=== PATIENT | female | born 1975 | race African-American/Black ===

== ENCOUNTER 2016-10-14 12:54 | Emergency (ER) | payer OTHER ==
[~2016-10-14 12:54] MED LIST: ALBU2.5V14 NEB; AMOX875T PO; BENZ100C PO; LIDO20SO PO; PRED50TA PO; PROAIR HFA8.5 GM INH
[2016-10-14 13:22] VITALS: BP 115/104
--- NOTE | 2016-10-14 14:11 | PHYS DOC ---
Past Medical History Past Medical History: Anxiety, Asthma, Depression, Other Additional Past Medical Histor: Chronic low back pain Past Surgical History: Tubal ligation, Other Additional Past Surgical Histo: D&C, wisdome teeth Alcohol Use: None Drug Use: None Adult General Chief Complaint Chief Complaint: LOWER BACK PAIN OR INJURY HPI HPI 41-year-old female presenting to the emergency department today with right- sided back pain that is acute on chronic. She reports recently lifting heavy objects. Her pain began this morning. It is severe radiates into her right leg and is without alleviating or exacerbating factors. Review of systems is negative for perineal paresthesias chest pain shortness of breath weakness numbness or tingling. All other review of systems is negative unless otherwise noted in history of present illness. ED course: 41-year-old female presenting to the emergency department today with signs and symptoms suggestive of sciatica. Vital signs unremarkable. Pertinent physical exam findings show mild pain on the right paraspinal musculature. Positive straight leg test on the right. Back exam shows no fluctuance erythema lacerations or ecchymosis or step-offs. Intramuscular hydromorphone used to control the patient's pain. On reexamination she is feeling much better and the patient was subsequent discharged home. The patient was then discharged home in stable condition to follow up with their primary care physician over the next 2- 3 days. They were to return if their symptoms worsened or if they were concerned for any reason. [id number] discharge instructions and return precautions were given. Patient's questions were answered to their satisfaction. Patient is comfortable plan. Review of Systems Review of Systems SEE ABOVE. Current Medications Current Medications Current Medications Medications (Trade) Dose Ordered Sig/Isa Start Time Stop Time Status Last Admin Dose Admin Hydromorphone HCl (Dilaudid) 1 mg 1X ONCE 10/14/16 14:15 10/14/16 14:16 DC 10/14/16 14:21 1 MG Allergies Allergies Allergies Coded Allergies Type Severity Reaction Last Updated Verified loratadine Allergy Intermediate swelling 07/31/15 Yes Physical Exam Physical Exam SEE ABOVE Constitutional: Well developed, well nourished, no acute distress, non-toxic appearance. HENT: Normocephalic, atraumatic, bilateral external ears normal, oropharynx moist, no oral exudates, nose normal. [] Eyes: PERRLA, EOMI, conjunctiva normal, no discharge. Neck: Normal range of motion, no tenderness, supple, no stridor. [] Cardiovascular:Heart rate regular rhythm, no murmur Lungs & Thorax: Bilateral breath sounds clear to auscultation Abdomen: Bowel sounds normal, soft, no tenderness, no masses, no pulsatile masses. [] Skin: Warm, dry, no erythema, no rash. Back: See above Extremities: No tenderness, no cyanosis, no clubbing, ROM intact, no edema. Neurologic: Alert and oriented X 3, normal motor function, normal sensory function, no focal deficits noted. Psychologic: Affect normal, judgement normal, mood normal. [] Current Patient Data Vital Signs Vital Signs Date Time Temp Pulse Resp B/P (MAP) Pulse Ox O2 Delivery O2 Flow Rate FiO2 10/14/16 13:22 98.3 55 22 99 Room Air 98.3 Lab Values Laboratory Tests Test 10/14/16 12:19 POC Urine HCG, Qualitative Hcg negative (Negative) EKG EKG [] Radiology/Procedures Radiology/Procedures [] Course & Med Decision Making Course & Med Decision Making Pertinent Labs and Imaging studies reviewed. (See chart for details) [] Dragon Disclaimer Dragon Disclaimer This electronic medical record was generated, in whole or in part, using a voice recognition dictation system. Departure Departure Impression: Primary Impression: Back pain Disposition: 01 HOME, SELF-CARE Condition: STABLE Referrals: PRAFUL DA SILVA MD (PCP) Patient Instructions: Back Pain, Adult Additional Instructions: Thank you for allowing us to participate in your care today. Followup with your primary care physician in 3 days if your symptoms do not improve. Call your Primary Doctor tomorrow and inform them of your visit today. If you do not have a primary care provider you can ask for a list of our primary care providers. Return to the emergency department you have any new or concerning findings. This should be evaluated by the primary care physician and any necessary consulting services for continued management within a few days after discharge. Return to emergency room if you have any new or concerning symptoms including but not limited to fever, chills, nausea, vomiting, intractable pain, any new rashes, chest pain, shortness of air, uncontrolled bleeding, difficulty breathing, and/or vision loss. You may have been prescribed medication that can change in your level of thinking and ability to operate machinery. These medications include hydrocodone and Ativan. Also, Benadryl has been known to do this as well. Be sure to check with your pharmacist and ask if the medications you've prescribed can affect your level of consciousness. I recommend not operating heavy machinery or driving while on medication such as these. Scripts Hydrocodone Bit/Acetaminophen (HYDROCODONE-APAP 5-325 ) 1 Each Tablet 1 TAB PO PRN Q6HRS Y for PAIN, #15 TAB 0 Refills Be careful as this medication may cause you to be drowsy or tired. Do not drive on this medication. Prov: ROSA ISELA GORDON MD 10/14/16 ROSA ISELA GORDON MD Oct 14, 2016 14:11
[2016-10-14] MEDS ORDERED: HYDROmorphone 2 MG/ML VIAL IM ONE (14:15)
[2016-10-14] MEDS ORDERED: HYDR-2758 PO (14:28)
== END 2016-10-14 14:46 | disposition home or self-care (01) ==
LOC: ER 12:54
DX: M54.5 Low back pain (principal); G89.29 Other chronic pain; J45.909 Unspecified asthma, uncomplicated; Z98.51 Tubal ligation status; Z88.8 Allergy status to other drugs, medicaments and biological substances
CPT/HCPCS: 81025; 96372; 99283; J1170

== ENCOUNTER 2017-01-10 05:44 | Emergency (ER) | payer OTHER ==
[~2017-01-10 05:44] MED LIST changes: +HYDR-2758 PO
== END 2017-01-10 06:19 | disposition left against medical advice (07) ==
LOC: ER 05:44
DX: M25.519 Pain in unspecified shoulder (principal); Z53.21 Procedure and treatment not carried out due to patient leaving prior to being seen by health care provider

== ENCOUNTER 2017-03-13 09:06 | Emergency (ER) | payer SELFPAY, OTHER ==
[2017-03-13] MEDS: ONDANSETRON ODT 4 MG TAB.RAPDIS. PO ×2 (09:44)
[2017-03-13] MEDS: ACETAMINOPHEN 500 MG TABLET PO ×2 (09:45)
[2017-03-13] MEDS: IBUPROFEN 600 MG TABLET. PO ×2 (09:46)
[2017-03-13 10:10] LABS: INFLUENZA A PATIENT NEGATIVE (NEGATIVE); INFLUENZA B PATIENT NEGATIVE (NEGATIVE); OBC FLU VALID
== END 2017-03-13 10:46 | disposition home or self-care (01) ==
LOC: ER 09:06
DX: B34.9 Viral infection, unspecified (principal); F41.9 Anxiety disorder, unspecified; J45.909 Unspecified asthma, uncomplicated; F32.9 Major depressive disorder, single episode, unspecified; G89.29 Other chronic pain; Z88.8 Allergy status to other drugs, medicaments and biological substances; Z98.51 Tubal ligation status
CPT/HCPCS: 71045; 87804; 87804-59; 99285-25; Q0162

== ENCOUNTER 2017-03-17 22:19 | Emergency (ER) | payer SELFPAY | END 2017-03-17 23:10 | disposition home or self-care (01) | LOC: ER 22:19 | DX: B34.9 Viral infection, unspecified (principal); G89.29 Other chronic pain; J45.909 Unspecified asthma, uncomplicated; Z88.8 Allergy status to other drugs, medicaments and biological substances | CPT/HCPCS: 99283 ==

== ENCOUNTER 2017-07-27 01:16 | Emergency (ER) | payer SELFPAY ==
[2017-07-27 02:19] LABS: ADD MAN DIFF? NO
[2017-07-27 02:21] LABS: BASO # 0.1 x10^3/uL (0.0-0.2); BASO % 1 % (0-3); EOS # 0.1 x10^3/uL (0.0-0.7); EOS % 1 % (0-3); HEMATOCRIT 26.7 % (36.0-47.0); HEMOGLOBIN 8.7 g/dL (12.0-15.5); LYMPH # 3.3 x10^3/uL (1.0-4.8); LYMPH % 34 % (24-48); MEAN CORPUSCULAR HEMOGLOBIN 21 pg (25-35); MEAN CORPUSCULAR HGB CONC 33 g/dL (31-37); MEAN CORPUSCULAR VOLUME 65 fL (79-100); MONO # 0.6 x10^3/uL (0.0-1.1); MONO % 6 % (0-9); NEUT # 5.6 x10^3uL (1.8-7.7); NEUT % 58 % (31-73); PLATELET COUNT 394 x10^3/uL (140-400); RED BLOOD COUNT 4.09 x10^6/uL (3.50-5.40); RED CELL DISTRIBUTION WIDTH 21.6 % (11.5-14.5); WHITE BLOOD COUNT 9.6 x10^3/uL (4.0-11.0)
[2017-07-27 02:30] LABS: ANION GAP 10 (6-14); CALCIUM 8.5 mg/dL (8.5-10.1); CARBON DIOXIDE 24 mmol/L (21-32); CHLORIDE 105 mmol/L (98-107); CREATININE 1.1 mg/dL (0.6-1.0); GFR 65.6; GLUCOSE 123 mg/dL (70-99); POTASSIUM 3.4 mmol/L (3.5-5.1); SODIUM 139 mmol/L (136-145)
[2017-07-27 02:38] LABS: BLOOD UREA NITROGEN 13 mg/dL (7-20)
[2017-07-27 02:42] LABS: TROPONINI < 0.010 ng/mL (0.000-0.055)
[2017-07-27 02:43] LABS: NT-PRO BNP 25 pg/mL (0-124)
[2017-07-27 03:25] LABS: PLT ESTIMATE ADEQUATE (ADEQUATE)
[2017-07-27 03:26] LABS: ANISOCYTOSIS MOD; HYPOCHROMIA MOD; MICROCYTOSIS MARKED; POLYCHROMASIA SLIGHT
[2017-07-27 04:00] LABS: BILIRUBIN,URINE NEGATIVE (NEG); CLARITY,URINE CLEAR; COLOR,URINE YELLOW; GLUCOSE,URINE NEGATIVE (NEG); NITRITE,URINE NEGATIVE (NEG); PH,URINE 5.5; PROTEIN,URINE NEGATIVE (NEG-TRACE); UROBILINOGEN,URINE 0.2 mg/dL (0.2 mg/dL)
[2017-07-27 04:04] LABS: BACTERIA,URINE MOD /HPF (0-FEW); RBC,URINE OCC /HPF (0-2); SQUAMOUS EPITHELIAL CELL,UR MANY /LPF
== END 2017-07-27 05:03 | disposition home or self-care (01) ==
LOC: ER 01:16
DX: R60.9 Edema, unspecified (principal); J45.909 Unspecified asthma, uncomplicated; G89.29 Other chronic pain; M54.9 Dorsalgia, unspecified; Z88.8 Allergy status to other drugs, medicaments and biological substances
CPT/HCPCS: 36415; 71045; 80048; 81001; 83880; 84484; 85025; 93005; 99285-25

== ENCOUNTER 2018-06-01 11:08 | Emergency (ER) | payer SELFPAY ==
[~2018-06-01] VITALS: Ht 175.3 cm; Wt 117.0 kg
[~2018-06-01 11:08] MED LIST changes: +ALBU2.5V8 IH; +ALBU2.5V8 INH; -HYDR-2758 PO; +HYDR-2761 PO; +HYDR12.58 PO; +ONDA4TAB10 SL; +OSEL75CA PO; -PROAIR HFA8.5 GM INH; +PROC10TA57 PO
[2018-06-01] MEDS ORDERED: HYDROcodone/APAP 7.5/325MG 1 TAB TABLET PO ONE (11:30)
--- NOTE | 2018-06-01 12:11 | RAD ---
Examination: KNEE LEFT 4V History: fell yesterday, severe left knee pain Comparison/Correlation: 11/11/2008 left knee x-ray exam Findings: Total of 4 images of the left knee were obtained. Joint spaces are unremarkable. No acute fracture or bony destruction. No joint effusion. Soft tissues are unremarkable. Minimal spurring about the knee. Impression: No acute process. No significant degenerative change. Electronically signed by: Aaron Guevara MD (06/01/2018 12:09 PM) [facility]
--- NOTE | 2018-06-01 12:19 | PHYS DOC ---
Past Medical History Past Medical History: Anxiety, Asthma, Depression, Other Additional Past Medical Histor: Chronic low back pain Past Surgical History: Tubal ligation, Other Additional Past Surgical Histo: D&C, wisdom teeth Alcohol Use: None Drug Use: None Adult General Chief Complaint Chief Complaint: KNEE INJURY HPI HPI Patient is a 42 year old female who brought in by EMS because of left knee pain. Patient states she had a fall from a standing position yesterday while tried to help her mom for prevention of a fall and had a fall by herself and landed on left knee without head injury or os of consciousness. Patient complaining of constant left knee pain and edema and unable to bearing weight. Patient denies focal neurodeficit and rated her pain 10 over 10. Review of Systems Review of Systems Constitutional: Denies fever or chills [] Eyes: Denies change in visual acuity, redness, or eye pain [] HENT: Denies nasal congestion or sore throat [] Respiratory: Denies cough or shortness of breath [] Cardiovascular: No additional information not addressed in HPI [] GI: Denies abdominal pain, nausea, vomiting, bloody stools or diarrhea [] : Denies dysuria or hematuria [] Musculoskeletal: Denies back pain or joint pain [] Integument: Denies rash or skin lesions [] Neurologic: Denies headache, focal weakness or sensory changes [] Endocrine: Denies polyuria or polydipsia [] All other systems were reviewed and found to be within normal limits, except as documented in this note. Current Medications Current Medications Current Medications Medications (Trade) Dose Ordered Sig/Isa Start Time Stop Time Status Last Admin Dose Admin Acetaminophen/ Hydrocodone Bitart (Lortab 7.5/325) 1 tab 1X ONCE 06/01/18 11:30 06/01/18 11:31 DC 06/01/18 11:46 1 TAB Allergies Allergies Allergies Coded Allergies Type Severity Reaction Last Updated Verified loratadine Allergy Intermediate swelling 07/31/15 Yes Physical Exam Physical Exam Constitutional: Well developed, well nourished, no acute distress, non-toxic appearance. [] HENT: Normocephalic, atraumatic, bilateral external ears normal, oropharynx m oist, no oral exudates, nose normal. [] Eyes: PERRLA, EOMI, conjunctiva normal, no discharge. [] Neck: Normal range of motion, no tenderness, supple, no stridor. [] Cardiovascular:Heart rate regular rhythm, no murmur [] Lungs & Thorax: Bilateral breath sounds clear to auscultation [] Abdomen: Bowel sounds normal, soft, no tenderness, no masses, no pulsatile masses. [] Skin: Warm, dry, no erythema, no rash. [] Back: No tenderness, no CVA tenderness. [] Extremities: No tenderness, no cyanosis, no clubbing, ROM intact, no edema. [] Neurologic: Alert and oriented X 3, normal motor function, normal sensory function, no focal deficits noted. [] Psychologic: Affect normal, judgement normal, mood normal. [] Current Patient Data Vital Signs Vital Signs Date Time Temp Pulse Resp B/P (MAP) Pulse Ox O2 Delivery O2 Flow Rate FiO2 06/01/18 14:30 68 99 Room Air 06/01/18 13:00 113/60 (77) 06/01/18 11:47 18 06/01/18 11:16 98.1 98.1 EKG EKG [] Radiology/Procedures Radiology/Procedures [address] [address] IMAGING REPORT Signed PATIENT: BABATUNDE STEVENS ACCOUNT: [id number] : 1975 LOCATION: ER AGE: 42 SEX: F EXAM STATUS: REG ER ORD. PHYSICIAN: TEODORO PACHECO MD REASON: fell yesterday, severe left knee pain PROCEDURE: KNEE LEFT 4V Examination: KNEE LEFT 4V History: fell yesterday, severe left knee pain Comparison/Correlation: 11/11/2008 left knee x-ray exam Findings: Total of 4 images of the left knee were obtained. Joint spaces are unremarkable. No acute fracture or bony destruction. No joint effusion. Soft tissues are unremarkable. Minimal spurring about the knee. Impression: No acute process. No significant degenerative change. Electronically signed by: Aaron Ware MD (06/01/2018 12:09 PM) [facility] DICTATED and SIGNED BY: AARON WARE MD DATE: 06/01/18 [address] [id number] [facility] [place] [address] IMAGING REPORT Signed PATIENT: BABATUNDE STEVENS ACCOUNT: [id number] : 1975 LOCATION: ER AGE: 42 SEX: F EXAM STATUS: REG ER ORD. PHYSICIAN: TEODORO PACHECO MD REASON: fall, unremarkable x-ray, lt knee severe pain PROCEDURE: CT LOWER EXTREMITY WO LEFT Examination: CT LOWER EXTREMITY WO LEFT History: fall, unremarkable x-ray, severe left knee pain Comparison/Correlation: Left knee 4 view x-ray exam 4 11/11/2018 Findings: Axial images of the left knee were obtained. Sagittal and coronal reformatted images were provided. Subchondral degenerative cystic involvement of the median ridge of the patella is present. Minimal subchondral sclerosis of the medial tibial plateau is evident. No acute fracture or bony destruction. No joint effusion. No popliteal cyst. Visualized osseous structures unremarkable. Lateral tilt of the patella is present. Impression: No fracture or other suspicious process. Mild degenerative change. PQRS Compliance Statement: One or more of the following individualized dose reduction techniques were utilized for this examination: 1. Automated exposure control 2. Adjustment of the mA and/or kV according to patient size 3. Use of iterative reconstruction technique Electronically signed by: Aaron Ware MD (06/01/2018 2:23 PM) [facility] DICTATED and SIGNED BY: AARON WARE MD DATE: 06/01/18 1423 Course & Med Decision Making Course & Med Decision Making Pertinent Imaging studies reviewed. (See chart for details) Evaluation of patient in ER showed 42-year-old male patient with a fall yesterday and complaining of left knee pain. Patient had unremarkable x-ray but still complaining of pain and unable to bend her knee after receiving oral pain medication. CT did not show acute finding. Patient usually was able to bend her knee. Knee immobilizer was applied and crutches was provided and patient was a dvised to follow-up with her primary care physician and orthopedist on-call for further evaluation. I've spoken with the patient and/or caregivers. I've explained the patient's condition, diagnosis and treatment plan based on information available to me at this time. I've answered the patient's and/or caregivers questions and addressed any concerns. The patient and/or caregivers have a good understanding the patient's diagnosis, condition and treatment plan as can be expected at this point. Vital signs have been stabilized. The patient's condition is stable for discharge from the emergency department. The patient will pursue further outpatient evaluation with her primary care provider or other designated consulting physician as outlined in the discharge instructions. Patient and/or caregivers are agreeable to this plan of care and follow-up instructions have been explained in detail. The patient and/or caregivers have received these instructions in written format and expressed understanding of these discharge instructions. The patient and her caregivers are aware that if any significant change in condition or worsening of symptoms should prompt him to immediately return to this of the closest emergency department. If an emergent department is not readily available I would encourage him to call 911. Dragon Disclaimer Dragon Disclaimer This electronic medical record was generated, in whole or in part, using a voice recognition dictation system. Departure Departure Impression: Primary Impression: Left knee sprain Additional Impression: Fall Disposition: HOME, SELF-CARE (at 1433) Condition: IMPROVED Referrals: PRAFUL DA SILVA MD (PCP) MISSY WATERS II, MD Patient Instructions: Knee Sprain Additional Instructions: Apply ice on left knee Follow-up with Dr. Waters in 2-3 days Return to ER if not getting better Scripts Hydrocodone/Apap 5-325 (NORCO 5-325 TABLET) 1 Each Tablet 1 TAB PO PRN Q6HRS PRN for PAIN, #12 TAB 0 Refills Prov: TEODORO PACHECO MD 06/01/18 Naproxen (NAPROSYN) 500 Mg Tablet 1 TAB PO BID for pain, #20 TAB Prov: TEODORO PACHECO MD 06/01/18 Problem Qualifiers Primary Impression: Left knee sprain Encounter type: initial encounter Involved ligament of knee: unspecified ligament Qualified Codes: S83.92XA - Sprain of unspecified site of left knee, initial encounter Additional Impression: Fall Encounter type: subsequent encounter Qualified Codes: W19.XXXD - Unspecified fall, subsequent encounter TEODORO PACHECO MD Jun 01, 2018 12:19
[2018-06-01 13:00] VITALS: BP 113/60
--- NOTE | 2018-06-01 14:26 | RAD ---
Examination: CT LOWER EXTREMITY WO LEFT History: fall, unremarkable x-ray, severe left knee pain Comparison/Correlation: Left knee 4 view x-ray exam 4 11/11/2018 Findings: Axial images of the left knee were obtained. Sagittal and coronal reformatted images were provided. Subchondral degenerative cystic involvement of the median ridge of the patella is present. Minimal subchondral sclerosis of the medial tibial plateau is evident. No acute fracture or bony destruction. No joint effusion. No popliteal cyst. Visualized osseous structures unremarkable. Lateral tilt of the patella is present. Impression: No fracture or other suspicious process. Mild degenerative change. PQRS Compliance Statement: One or more of the following individualized dose reduction techniques were utilized for this examination: 1. Automated exposure control 2. Adjustment of the mA and/or kV according to patient size 3. Use of iterative reconstruction technique Electronically signed by: Aaron Guevara MD (06/01/2018 2:23 PM) [facility]
[2018-06-01] MEDS ORDERED: HYDR-3164 PO (14:35)
[2018-06-01] MEDS ORDERED: NAPR-683 PO (14:35)
== END 2018-06-01 14:50 | disposition home or self-care (01) ==
LOC: ER 11:08
DX: S83.92XA Sprain of unspecified site of left knee, initial encounter (principal); F41.9 Anxiety disorder, unspecified; J45.909 Unspecified asthma, uncomplicated; F32.9 Major depressive disorder, single episode, unspecified; G89.29 Other chronic pain; M54.5 Low back pain; Z88.8 Allergy status to other drugs, medicaments and biological substances; W18.39XA Other fall on same level, initial encounter; Y93.89 Activity, other specified; Y92.89 Other specified places as the place of occurrence of the external cause; Y99.8 Other external cause status
CPT/HCPCS: 29505; 73564; 73700; 99284-25

== ENCOUNTER 2018-07-06 18:36 | Emergency (ER) | payer SELFPAY ==
[~2018-07-06] VITALS: Ht 175.3 cm; Wt 129.8 kg
[~2018-07-06 18:36] MED LIST changes: +HYDR-3164 PO; +NAPR-683 PO
[2018-07-06 18:40] VITALS: BP 149/89
--- NOTE | 2018-07-06 19:05 | PHYS DOC ---
Past Medical History Past Medical History: Anxiety, Asthma, Depression, Other Additional Past Medical Histor: Chronic low back pain (STEVIE SYED APRN) Past Surgical History: Tubal ligation, Other Additional Past Surgical Histo: D&C, wisdom teeth (STEVIE SYED APRN) Alcohol Use: None Drug Use: None (STEVIE SYED APRN) Adult General Chief Complaint Chief Complaint: SORE THROAT HPI HPI Patient is a 42 year old female presents for evaluation of hoarse voice and sore throat for 4 days. She reports one episode of emesis yesterday. Subjective fever yesterday, did not take her temperature but states "I know when I have any fever without taking my temperature". (STEVIE SYED APRN) Review of Systems Review of Systems Constitutional: REPORTS FEVER [] Eyes: Denies change in visual acuity, redness, or eye pain [] HENT: Denies nasal congestion REPORTS sore throat [] Respiratory: Denies cough or shortness of breath [] Cardiovascular: No additional information not addressed in HPI [] GI: Denies abdominal pain, nausea,REPORTS vomiting X1, DENIES bloody stools or diarrhea [] : Denies dysuria or hematuria [] Musculoskeletal: Denies back pain or joint pain [] Integument: Denies rash or skin lesions [] Neurologic: Denies headache, focal weakness or sensory changes [] Endocrine: Denies polyuria or polydipsia [] All other systems were reviewed and found to be within normal limits, except as documented in this note. (STEVIE SYED APRN) Current Medications Current Medications Current Medications Medications (Trade) Dose Ordered Sig/Isa Start Time Stop Time Status Last Admin Dose Admin Ketorolac Tromethamine (Toradol 30mg Vial) 30 mg 1X ONCE 07/06/18 19:15 07/06/18 19:16 DC 07/06/18 19:26 30 MG (PRAFUL MARQUEZ DO) Allergies Allergies Allergies Coded Allergies Type Severity Reaction Last Updated Verified loratadine Allergy Intermediate swelling 07/31/15 Yes (PRAFUL MARQUEZ DO) Physical Exam Physical Exam Constitutional: Well developed, well nourished, no acute distress, non-toxic appearance. [] HENT: Normocephalic, atraumatic, bilateral external ears normal, oropharynx moist, no oral exudates, nose normal. [] Eyes: PERRLA, EOMI, conjunctiva normal, no discharge. [] Neck: Normal range of motion, no tenderness, supple, no stridor. [] Cardiovascular:Heart rate regular rhythm, no murmur [] Lungs & Thorax: Bilateral breath sounds clear to auscultation [] Skin: Warm, dry, no erythema, no rash. [] Neurologic: Alert and oriented X 3, normal motor function, normal sensory function, no focal deficits noted. [] Psychologic: Affect normal, judgement normal, mood normal. [] (STEVIE SYED APRN) Current Patient Data Vital Signs Vital Signs Date Time Temp Pulse Resp B/P (MAP) Pulse Ox O2 Delivery O2 Flow Rate FiO2 07/06/18 18:40 98.5 104 20 149/89 (109) 99 Room Air 98.5 (PRAFUL MARQUEZ DO) EKG EKG [] (STEVIE SYED APRN) Radiology/Procedures Radiology/Procedures [] (STEVIE SYED APRN) Course & Med Decision Making Course & Med Decision Making Pertinent Labs and Imaging studies reviewed. (See chart for details) [Rapid strep negative, symptoms are likely viral etiology, explained this to patient and recommend [id number] ibuprofen or Tylenol for discomfort. She is requesting a note for work tomorrow.] (STEVIE SYED APRN) Dragon Disclaimer Dragon Disclaimer This electronic medical record was generated, in whole or in part, using a voice recognition dictation system. (STEVIE SYED APRN) Departure Departure Impression: Primary Impression: Pharyngitis Disposition: HOME, SELF-CARE Condition: STABLE Referrals: PRAFUL DA SILVA MD (PCP) Patient Instructions: Viral Pharyngitis Attending Signature Attending Signature I have reviewed the PA/EMT P's note and plan of care. I was available for consultation as needed during the patient's visit in the emergency department. I agree with the clinical impression, plan, and disposition. (PRAFUL MARQUEZ DO) Problem Qualifiers Primary Impression: Pharyngitis Pharyngitis/tonsillitis etiology: unspecified etiology Qualified Codes: J02.9 - Acute pharyngitis, unspecified STEVIE SYED APRN July 06, 2018 19:05 PRAFUL MARQUEZ DO July 07, 2018 03:53
[2018-07-06] MEDS ORDERED: KETOROLAC 30 MG/ML VIAL. IM ONE (19:15)
== END 2018-07-06 19:32 | disposition home or self-care (01) ==
LOC: ER 18:36
DX: J02.9 Acute pharyngitis, unspecified (principal); R11.10 Vomiting, unspecified; R50.9 Fever, unspecified; F41.9 Anxiety disorder, unspecified; J45.909 Unspecified asthma, uncomplicated; F32.9 Major depressive disorder, single episode, unspecified; G89.29 Other chronic pain; Z98.51 Tubal ligation status; Z88.8 Allergy status to other drugs, medicaments and biological substances
CPT/HCPCS: 87070; 87880; 96372; 99283; J1885

== ENCOUNTER 2019-02-11 18:21 | Emergency (ER) | payer SELFPAY ==
[~2019-02-11 18:21] MED LIST changes: -ALBU2.5V8 IH; +PROVENTIL HFA6.7 GM IH
== END 2019-02-11 19:13 | disposition left against medical advice (07) ==
LOC: ER 18:21
DX: S89.91XA Unspecified injury of right lower leg, initial encounter (principal); Z53.21 Procedure and treatment not carried out due to patient leaving prior to being seen by health care provider; X58.XXXA Exposure to other specified factors, initial encounter; Y93.89 Activity, other specified; Y92.89 Other specified places as the place of occurrence of the external cause; Y99.8 Other external cause status

== ENCOUNTER 2019-03-22 03:27 | Emergency (ER) | payer SELFPAY ==
[~2019-03-22] VITALS: Ht 175.3 cm; Wt 113.0 kg
[2019-03-22 04:05] VITALS: BP 145/83
[2019-03-22 04:33] LABS: INFLUENZA A PATIENT NEGATIVE (NEGATIVE); INFLUENZA B PATIENT NEGATIVE (NEGATIVE)
--- NOTE | 2019-03-22 04:40 | PHYS DOC ---
Past Medical History Past Medical History: Anxiety, Asthma, Depression, Other Additional Past Medical Histor: Chronic low back pain Past Surgical History: Tubal ligation, Other Additional Past Surgical Histo: D&C, wisdom teeth Smoking Status: Never Smoker Alcohol Use: None Drug Use: None Adult General Chief Complaint Chief Complaint: FLU SYMPTOM HPI HPI 43 yo female presents to the ER with complaints of vomiting x 2 days, decreased oral intake, headache, bodyaches, cough with greee sputum production. Patient VS reviewed and stable. Patient has history of asthma, depression. Patient states no recent sick contacts. Nothing makes her symptoms worse, nothing makes her symptoms better. Patient denies chest pain, abdominal pain on exam. All other ROS negative unless documented in HPI Review of Systems Review of Systems See Above Allergies Allergies Allergies Coded Allergies Type Severity Reaction Last Updated Verified loratadine Allergy Intermediate swelling 07/31/15 Yes Physical Exam Physical Exam See Above Constitutional: Well developed, well nourished, no acute distress, non-toxic appearance. [] HENT: Normocephalic, atraumatic, bilateral external ears normal, oropharynx moist, no oral exudates, nose normal. [] Eyes: PERRLA, EOMI, conjunctiva normal, no discharge. [] Neck: Normal range of motion, no tenderness, supple, no stridor. [] Cardiovascular:Heart rate regular rhythm, no murmur [] Lungs & Thorax: decreased BS, coarse BS right > left Abdomen: Bowel sounds normal, soft, no tenderness, no masses, no pulsatile masses. [] Skin: Warm, dry, no erythema, no rash. [] Back: No tenderness, no CVA tenderness. [] Extremities: No tenderness, no edema. [] Neurologic: Alert and oriented X 3, no focal deficits noted. [] Psychologic: Affect normal, judgement normal, mood normal. [] Current Patient Data Vital Signs Vital Signs Date Time Temp Pulse Resp B/P (MAP) Pulse Ox O2 Delivery O2 Flow Rate FiO2 03/22/19 04:05 98.9 89 16 145/83 (103) 100 Room Air 98.9 Lab Values Laboratory Tests Test 03/22/19 04:00 Influenza Type A Antigen Negative (NEGATIVE) Influenza Type B Antigen Negative (NEGATIVE) EKG EKG [] Radiology/Procedures Radiology/Procedures [] Course & Med Decision Making Course & Med Decision Making Pertinent Labs and Imaging studies reviewed. (See chart for details) []43 yo female presents to the ER with complaints of vomiting x 2 days, decreased oral intake, headache, bodyaches, cough with greee sputum production. Patient VS reviewed and stable. Patient has history of asthma, depression. Patient states no recent sick contacts. Nothing makes her symptoms worse, nothing makes her symptoms better. Patient denies chest pain, abdominal pain on exam. CXR reviewed - evidence of developing consolidation right middle lobe Recommend abx therapy upon discharge Influenza negative Return precautions discussed Charly Disclaimer Charly Disclaimer This electronic medical record was generated, in whole or in part, using a voice recognition dictation system. Departure Departure Impression: Primary Impression: Community acquired pneumonia Disposition: HOME, SELF-CARE Condition: STABLE Referrals: NO PCP (PCP) Patient Instructions: Pneumonia, Adult, [id number] Additional Instructions: Recommend abx therapy upon discharge Zofran as needed for nausea Albuterol rx provided for refill CXR with developing PNA to Right Middle Lobe Influenza negative Tylenol/Motrin as needed for fever Encourage fluids as able, ice chips, gatorade Scripts Ondansetron Hcl (ZOFRAN) 4 Mg Tablet 1 TAB PO PRN Q6-8HRS for nausea, #12 TAB Prov: ZULEYKA HDEZ MD 03/22/19 Azithromycin (ZITHROMAX) 500 Mg Tablet 1 TAB PO DAILY, #5 TAB Prov: ZULEYKA HDEZ MD 03/22/19 Problem Qualifiers Primary Impression: Community acquired pneumonia Laterality: right Lung location: middle lobe of lung Qualified Codes: J18.9 - Pneumonia, unspecified organism ZULEYKA HDEZ MD Mar 22, 2019 04:40
[2019-03-22] MEDS ORDERED: ONDA4TAB7 PO (04:46)
[2019-03-22] MEDS ORDERED: AZIT500T PO (04:46)
--- NOTE | 2019-03-22 04:47 | RAD ---
CHEST AP ONLY Clinical Indication: Shortness of breath, cough, fever Comparison: AP chest July 27, 2017. Findings: The cardiomediastinal silhouette is normal. Lungs are clear. There is no pneumothorax. No pleural effusion is appreciated. No acute bone abnormality. IMPRESSION: No acute cardiopulmonary process. Electronically signed by: Romero aYng MD (03/22/2019 4:45 AM) [id number]
== END 2019-03-22 04:55 | disposition home or self-care (01) ==
LOC: ER 03:27
DX: J18.9 Pneumonia, unspecified organism (principal); R11.10 Vomiting, unspecified; R51 Headache; R05 Cough; F41.9 Anxiety disorder, unspecified; J45.909 Unspecified asthma, uncomplicated; F32.9 Major depressive disorder, single episode, unspecified; Z98.51 Tubal ligation status; Z98.890 Other specified postprocedural states; Z88.8 Allergy status to other drugs, medicaments and biological substances
CPT/HCPCS: 71045; 87804; 99284

== ENCOUNTER 2019-05-17 01:35 | Emergency (ER) | payer SELFPAY ==
[~2019-05-17] VITALS: Ht 175.3 cm; Wt 118.0 kg
[~2019-05-17 01:35] MED LIST changes: +AZIT500T PO; +ONDA4TAB7 PO
[2019-05-17 01:59] VITALS: BP 134/77
[2019-05-17] MEDS ORDERED: FLUCONAZOLE 100 MG TABLET. PO ONE (02:30)
[2019-05-17] MEDS ORDERED: FLUC150T PO (02:32)
--- NOTE | 2019-05-17 02:33 | PHYS DOC ---
Past Medical History Past Medical History: Asthma Additional Past Medical Histor: Chronic low back pain Past Surgical History: Tubal ligation Additional Past Surgical Histo: D&C, wisdom teeth Smoking Status: Never Smoker Alcohol Use: None Drug Use: None Adult General Chief Complaint Chief Complaint: VAGINAL PROBLEM HPI HPI Patient is a 43-year-old female who presents stating that she has some vaginal itching which is typical of a yeast infection. In fact, she states she does have yeast infection needs some medicine to help her. She denies any vaginal lesions or dyspareunia. She denies any dysuria or gross hematuria.[] Review of Systems Review of Systems Constitutional: Denies fever or chills [] GI: Denies abdominal pain, nausea, vomiting, bloody stools or diarrhea [] : Per history of present illness[] All other systems were reviewed and found to be within normal limits, except as documented in this note. Current Medications Current Medications Current Medications Medications (Trade) Dose Ordered Sig/Isa Start Time Stop Time Status Last Admin Dose Admin Fluconazole (Diflucan) 100 mg 1X ONCE 05/17/19 02:30 05/17/19 02:31 Allergies Allergies Allergies Coded Allergies Type Severity Reaction Last Updated Verified loratadine Allergy Intermediate swelling 07/31/15 Yes Physical Exam Physical Exam Constitutional: Well developed, well nourished, no acute distress, non-toxic appearance. [] HENT: Normocephalic, atraumatic, bilateral external ears normal, oropharynx mois t, no oral exudates, nose normal. [] Eyes: PERRLA, EOMI, conjunctiva normal, no discharge. [] Neck: Normal range of motion, no tenderness, supple, no stridor. [] Cardiovascular:Heart rate regular rhythm, no murmur [] Lungs & Thorax: Bilateral breath sounds clear to auscultation [] Abdomen: Bowel sounds normal, soft, no tenderness, no masses, no pulsatile masses. [] Skin: Warm, dry, no erythema, no rash. [] Back: No tenderness, no CVA tenderness. [] Extremities: No tenderness, no cyanosis, no clubbing, ROM intact, no edema. [] Neurologic: Alert and oriented X 3, normal motor function, normal sensory function, no focal deficits noted. [] Psychologic: Affect normal, judgement normal, mood normal. [] Current Patient Data Vital Signs Vital Signs Date Time Temp Pulse Resp B/P (MAP) Pulse Ox O2 Delivery O2 Flow Rate FiO2 05/17/19 01:59 97.9 74 18 134/77 (96) Room Air 97.9 05/17/19 01:41 100 EKG EKG [] Radiology/Procedures Radiology/Procedures [] Course & Med Decision Making Course & Med Decision Making Pertinent Labs and Imaging studies reviewed. (See chart for details) [] Dragon Disclaimer Dragon Disclaimer This electronic medical record was generated, in whole or in part, using a voice recognition dictation system. Departure Departure Impression: Primary Impression: Vaginal candidiasis Disposition: HOME, SELF-CARE Condition: STABLE Referrals: NO PCP (PCP) Patient Instructions: Candidal Vulvovaginitis, [id number] Scripts Fluconazole (DIFLUCAN) 150 Mg Tablet 1 TAB PO ONCE, #1 TAB 1 Refill Prov: GEORGE JULIEN DO 05/17/19 GEORGE JULIEN DO May 17, 2019 02:32
== END 2019-05-17 02:37 | disposition home or self-care (01) ==
LOC: ER 01:35
DX: B37.3 Candidiasis of vulva and vagina (principal); L29.9 Pruritus, unspecified; J45.909 Unspecified asthma, uncomplicated; G89.29 Other chronic pain; Z98.51 Tubal ligation status; Z98.890 Other specified postprocedural states; Z88.8 Allergy status to other drugs, medicaments and biological substances
CPT/HCPCS: 99283

== ENCOUNTER 2019-05-29 00:05 | Emergency (ER) | payer SELFPAY ==
[~2019-05-29] VITALS: Ht 175.3 cm; Wt 122.7 kg
[~2019-05-29 00:05] MED LIST changes: +FLUC150T PO
[2019-05-29 00:29] LABS: BASO # 0.2 x10^3/uL (0.0-0.2); BASO % 2 % (0-3); EOS # 0.2 x10^3/uL (0.0-0.7); EOS % 2 % (0-3); HEMATOCRIT 25.1 % (36.0-47.0); HEMOGLOBIN 7.9 g/dL (12.0-15.5); LYMPH # 4.2 x10^3/uL (1.0-4.8); LYMPH % 41 % (24-48); MEAN CORPUSCULAR HEMOGLOBIN 19 pg (25-35); MEAN CORPUSCULAR HGB CONC 32 g/dL (31-37); MEAN CORPUSCULAR VOLUME 59 fL (79-100); MONO # 0.6 x10^3/uL (0.0-1.1); MONO % 6 % (0-9); NEUT % 49 % (31-73); PLATELET COUNT 461 x10^3/uL (140-400); RED BLOOD COUNT 4.22 x10^6/uL (3.50-5.40); RED CELL DISTRIBUTION WIDTH 19.8 % (11.5-14.5); WHITE BLOOD COUNT 10.1 x10^3/uL (4.0-11.0)
[2019-05-29] MEDS ORDERED: MORPHINE SULFATE 4 MG/ML VIAL. IV/SQ PRN (00:30)
[2019-05-29] MEDS ORDERED: ASPIRIN CHEWABLE 81 MG TABLET. PO ONE (00:30)
[2019-05-29] MEDS ORDERED: IV NORMAL SALINE 1000ML BAG 1,000 ML IV SCH (00:30)
[2019-05-29 00:37] LABS: CALCIUM 8.6 mg/dL (8.5-10.1); GFR 72.5; POTASSIUM 4.4 mmol/L (3.5-5.1)
--- NOTE | 2019-05-29 00:42 | EKG ---
[facility] [address] [place] [address] Test Date: 2019-05-29 Test Time: 00:13:48 Pat Name: BABATUNDE STEVENS Department: Room: Gender: F Machine Ii Coremaker: : 1975 Requested By: CAIO BERRIOS Order Number: [id number] Reading MD: Piter Johnson MD Measurements Intervals [place] Rate: 98 P: 52 IA: 124 QRS: 31 QRSD: 76 T: 28 QT: 368 QTc: 472 Interpretive Statements SINUS RHYTHM NON-SPECIFIC ST/T CHANGES Electronically Signed On 05-31-2019 8:35:36 CDT by Piter Johnson MD
[2019-05-29 00:43] LABS: ALBUMIN 3.7 g/dL (3.4-5.0); TOTAL BILIRUBIN 0.2 mg/dL (0.2-1.0); TOTAL PROTEIN 7.5 g/dL (6.4-8.2)
--- NOTE | 2019-05-29 00:49 | RAD ---
EXAM: AP View of the chest DATE: 05/29/2019 12:21 AM INDICATION: Chest pain COMPARISON: 03/22/2019, 07/27/2017 FINDINGS: The heart is not enlarged. Mediastinal and hilar contours are normal. No focal parenchymal airspace opacity. No pleural effusion or pneumothorax. IMPRESSION: 1. No radiographic evidence for acute cardiopulmonary process. Electronically signed by: Pérez Barrios MD (05/29/2019 12:46 AM) [facility]
--- NOTE | 2019-05-29 00:52 | PHYS DOC ---
Past Medical History Past Medical History: Asthma Additional Past Medical Histor: Chronic low back pain Past Surgical History: Tubal ligation Additional Past Surgical Histo: D&C, wisdom teeth Smoking Status: Never Smoker Alcohol Use: None Drug Use: None General Adult EDM: Chief Complaint: CHEST PAIN HPI: HPI: Patient is a 43 year old female who presents with complaint of midsternal chest pain as well as pain down her right shoulder and arm. Patient states the pain initiated in her shoulder and down the arm and then started in the chest. She states that pain started about 1 hour prior to arrival. She rates pain at a 10 out of 10. She states the pain is worsened when she moves her shoulder. She states that nothing improves the pain. She denies any worsening of the chest pain with exertion. She denies any nausea, vomiting or diaphoresis.[] Review of Systems: Review of Systems: Constitutional: Denies fever or chills. [] Respiratory: Denies cough or shortness of breath. [] Cardiovascular: Complains of chest pain. [] GI: Denies abdominal pain, nausea, vomiting. [] Musculoskeletal: Complains of right shoulder and arm pain. [] Integument: Denies rash. [] Neurologic: Denies headache, focal weakness or sensory changes. [] A full 10 point review of systems has been reviewed and is otherwise negative. Heart Score: HEART Score for Chest Pain: HEART Score for Chest Pain Response (Comments) Value History Slighlty/Non-Suspicious 0 ECG Normal 0 Age >45 - < 65 1 Risk Factors No Risk Factors 0 Troponin < Normal Limit 0 Total 1 Risk Factors: Risk Factors: DM, Current or recent (<one month) smoker, HTN, HLP, family history of CAD, obesity. Risk Scores: Score 0 - 3: 2.5% MACE over next 6 weeks - Discharge Home Score 4 - 6: 20.3% MACE over next 6 weeks - Admit for Clinical Observation Score 7 - 10: 72.7% MACE over next 6 weeks - Early Invasive Strategies Current Medications: Current Medications Medications (Trade) Dose Ordered Sig/Isa Start Time Stop Time Status Last Admin Dose Admin Aspirin (Aspirin Chewable) 324 mg 1X ONCE 05/29/19 00:30 05/29/19 00:31 DC 05/29/19 00:34 324 MG Morphine Sulfate (Morphine Sulfate) 4 mg PRN Q15MIN PRN 05/29/19 00:30 05/30/19 00:29 05/29/19 00:37 4 MG Sodium Chloride 1,000 ml @ 1,000 mls/hr Q1H 05/29/19 00:30 05/29/19 01:29 05/29/19 00:34 1,000 MLS/HR Allergies: Allergies: Allergies Coded Allergies Type Severity Reaction Last Updated Verified loratadine Allergy Intermediate swelling 07/31/15 Yes Physical Exam: PE: Constitutional: Well developed, well nourished, appears uncomfortable, non-toxic appearance. [] HENT: Normocephalic, atraumatic, bilateral external ears normal, oropharynx moist, no oral exudates, nose normal. [] Eyes: PERRLA, EOMI, conjunctiva normal, no discharge. [] Neck: Normal range of motion, no tenderness, supple, no stridor. [] Cardiovascular: Regular rate and rhythm[] Lungs & Thorax: Bilateral breath sounds clear to auscultation [] Abdomen: Bowel sounds normal, soft, no tenderness. [] Skin: Warm, dry, no erythema, no rash. [] Extremities: No tenderness, no cyanosis, no clubbing, ROM intact. [] Neurologic: Alert and oriented X 3, no focal deficits noted. [] Current Patient Data: Labs: Laboratory Tests Test 05/29/19 00:18 White Blood Count 10.1 x10^3/uL (4.0-11.0) Red Blood Count 4.22 x10^6/uL (3.50-5.40) Hemoglobin 7.9 g/dL (12.0-15.5) L Hematocrit 25.1 % (36.0-47.0) L Mean Corpuscular Volume 59 fL (79-100) L Mean Corpuscular Hemoglobin 19 pg (25-35) L Mean Corpuscular Hemoglobin Concent 32 g/dL (31-37) Red Cell Distribution Width 19.8 % (11.5-14.5) H Platelet Count 461 x10^3/uL (140-400) H Neutrophils (%) (Auto) 49 % (31-73) Lymphocytes (%) (Auto) 41 % (24-48) Monocytes (%) (Auto) 6 % (0-9) Eosinophils (%) (Auto) 2 % (0-3) Basophils (%) (Auto) 2 % (0-3) Neutrophils # (Auto) 5.0 x10^3/uL (1.8-7.7) Lymphocytes # (Auto) 4.2 x10^3/uL (1.0-4.8) Monocytes # (Auto) 0.6 x10^3/uL (0.0-1.1) Eosinophils # (Auto) 0.2 x10^3/uL (0.0-0.7) Basophils # (Auto) 0.2 x10^3/uL (0.0-0.2) Platelet Estimate Pending Sodium Level 137 mmol/L (136-145) Potassium Level 4.4 mmol/L (3.5-5.1) Chloride Level 103 mmol/L (98-107) Carbon Dioxide Level 23 mmol/L (21-32) Anion Gap 11 (6-14) Blood Urea Nitrogen 10 mg/dL (7-20) Creatinine 1.0 mg/dL (0.6-1.0) Estimated GFR (Cockcroft-Gault) 72.5 BUN/Creatinine Ratio 10 (6-20) Glucose Level 131 mg/dL (70-99) H Calcium Level 8.6 mg/dL (8.5-10.1) Magnesium Level 2.0 mg/dL (1.8-2.4) Total Bilirubin 0.2 mg/dL (0.2-1.0) Aspartate Amino Transferase (AST) 22 U/L (15-37) Alanine Aminotransferase (ALT) 21 U/L (14-59) Alkaline Phosphatase 60 U/L (46-116) Troponin I Quantitative < 0.017 ng/mL (0.000-0.055) Total Protein 7.5 g/dL (6.4-8.2) Albumin 3.7 g/dL (3.4-5.0) Albumin/Globulin Ratio 1.0 (1.0-1.7) Laboratory Tests 05/29/19 00:18 Laboratory Tests 05/29/19 00:18 Vital Signs: Vital Signs Date Time Temp Pulse Resp B/P (MAP) Pulse Ox O2 Delivery O2 Flow Rate FiO2 05/29/19 00:37 18 100 05/29/19 00:10 98.4 103 143/79 (100) Room Air 98.4 EKG: EKG: EKG demonstrates normal sinus rhythm with rate of 98.[] Radiology/Procedures: Radiology/Procedures: [] Impression: PROCEDURE: PORTABLE CHEST 1V EXAM: AP View of the chest DATE: 05/29/2019 12:21 AM INDICATION: Chest pain COMPARISON: 03/22/2019, 07/27/2017 FINDINGS: The heart is not enlarged. Mediastinal and hilar contours are normal. No focal parenchymal airspace opacity. No pleural effusion or pneumothorax. IMPRESSION: 1. No radiographic evidence for acute cardiopulmonary process. Electronically signed by: Pérez Barrios MD (05/29/2019 12:46 AM) [facility] Course & Med Decision Making: Course & Med Decision Making Pertinent Labs and Imaging studies reviewed. (See chart for details) [] Dragon Disclaimer: Dragon Disclaimer: This electronic medical record was generated, in whole or in part, using a voice recognition dictation system. Departure Departure Impression: Primary Impression: Chest wall pain Disposition: 01 HOME, SELF-CARE Condition: STABLE Referrals: NO PCP (PCP) Patient Instructions: Chest Wall Pain Scripts Tramadol Hcl (TRAMADOL HCL) 50 Mg Tablet 50 MG PO Q6HRS PRN for PAIN, #12 TAB Prov: CAIO BERRIOS Jr. DO 05/29/19 Diclofenac Sodium (DICLOFENAC SODIUM) 50 Mg Tablet.dr 1 TAB PO BID PRN for PAIN, #20 TAB Prov: CAIO BERRIOS Jr. DO 05/29/19 CAIO BERRIOS Jr. DO May 29, 2019 00:52
[2019-05-29 00:54] LABS: ANISOCYTOSIS MOD; HYPOCHROMIA MARKED; MICROCYTOSIS MARKED; PLT ESTIMATE INCREASED (ADEQUATE); POIKILOCYTOSIS SLIGHT
[2019-05-29 00:55] LABS: OVALOCYTES FEW; TARGET CELLS OCC
[2019-05-29 00:56] LABS: POLYCHROMASIA SLIGHT; SCHISTOCYTES OCC; TEAR DROP CELLS OCC
[2019-05-29 01:31] LABS: BILIRUBIN,URINE NEGATIVE (NEG); CLARITY,URINE CLEAR; NITRITE,URINE NEGATIVE (NEG); PROTEIN,URINE NEGATIVE (NEG-TRACE); UROBILINOGEN,URINE 0.2 mg/dL (0.2 mg/dL)
[2019-05-29 01:40] LABS: COLOR,URINE YELLOW; RBC,URINE 20-40 /HPF (0-2); SQUAMOUS EPITHELIAL CELL,UR FEW /LPF
[2019-05-29 01:41] LABS: BACTERIA,URINE 0 /HPF (0-FEW)
[2019-05-29 02:38] VITALS: BP 100/72
[2019-05-29] MEDS ORDERED: DICL50TA4 PO (02:39)
[2019-05-29] MEDS ORDERED: TRAM50TA PO (02:39)
== END 2019-05-29 02:47 | disposition home or self-care (01) ==
LOC: ER 00:05
DX: R07.89 Other chest pain (principal); J45.909 Unspecified asthma, uncomplicated; G89.29 Other chronic pain; M25.511 Pain in right shoulder; M79.601 Pain in right arm; Z88.8 Allergy status to other drugs, medicaments and biological substances
CPT/HCPCS: 36415; 71045; 80053; 81001; 81025; 83735; 83880; 84484; 85025; 87086; 93005; 96374; 99285; J2270; J7030

== ENCOUNTER 2019-07-26 20:26 | Emergency (ER) | payer SELFPAY ==
[~2019-07-26] VITALS: Ht 175.3 cm; Wt 125.4 kg
[~2019-07-26 20:26] MED LIST changes: +DICL50TA4 PO; +TRAM50TA PO
[2019-07-26 20:45] VITALS: BP 130/67
--- NOTE | 2019-07-26 20:51 | PHYS DOC ---
Past Medical History Past Medical History: Asthma Additional Past Medical Histor: Chronic low back pain Past Surgical History: Tubal ligation Additional Past Surgical Histo: D&C, wisdom teeth Smoking Status: Never Smoker Alcohol Use: None Drug Use: None General Adult EDM: Chief Complaint: ANKLE PROBLEM HPI: HPI: Patient is a 43 year old female who presents with complaint of injury to her ri ght ankle after twisting her ankle while trying to run away from her neighbor's dog. Patient reports pain at an 8 out of 10 and states that she is not able to bear weight because of the pain. She denies any other injuries. [] Review of Systems: Review of Systems: Constitutional: Denies fever or chills. [] Respiratory: Denies cough or shortness of breath. [] Cardiovascular: Denies chest pain or edema. [] Musculoskeletal: Complains of right ankle pain. [] Integument: Denies rash. [] Neurologic: Denies headache, focal weakness or sensory changes. [] Heart Score: Risk Factors: Risk Factors: DM, Current or recent (<one month) smoker, HTN, HLP, family history of CAD, obesity. Risk Scores: Score 0 - 3: 2.5% MACE over next 6 weeks - Discharge Home Score 4 - 6: 20.3% MACE over next 6 weeks - Admit for Clinical Observation Score 7 - 10: 72.7% MACE over next 6 weeks - Early Invasive Strategies Allergies: Allergies: Allergies Coded Allergies Type Severity Reaction Last Updated Verified loratadine Allergy Intermediate swelling 07/31/15 Yes Physical Exam: PE: Constitutional: Well developed, well nourished, no acute distress, non-toxic appearance. [] Cardiovascular: Regular rate and rhythm [] Lungs & Thorax: Bilateral breath sounds clear to auscultation [] Skin: Warm, dry, no erythema, no rash. [] Extremities: Examination of right ankle demonstrates soft tissue swelling and ecchymosis with tenderness around the lateral malleolus and lateral aspect of the ankle. [] Neurologic: Alert and oriented X 3, no focal deficits noted. [] EKG: EKG: [] Radiology/Procedures: Radiology/Procedures: [] Impression: PROCEDURE: ANKLE RIGHT 3V ANKLE RIGHT 3V History: Reason: right ankle pain post fall / Spl. Instructions: / History: Technique: 3 views right foot. Comparison: None. Findings: Normal alignment. Symmetric ankle mortise. Lateral ankle soft tissue swelling. No acute fracture. Impression: 1. No acute osseous abnormality. 2. Lateral ankle soft tissue swelling. Electronically signed by: Hayes Hayden DO (07/26/2019 9:38 PM) [facility] Course & Med Decision Making: Course & Med Decision Making Pertinent Labs and Imaging studies reviewed. (See chart for details) [] Dragon Disclaimer: Dragon Disclaimer: This electronic medical record was generated, in whole or in part, using a voice recognition dictation system. Departure Departure Impression: Primary Impression: Right ankle sprain Qualified Codes: S93.401A - Sprain of unspecified ligament of right ankle, initial encounter Disposition: HOME, SELF-CARE Condition: STABLE Referrals: PRAFUL DA SILVA MD (PCP) Patient Instructions: Ankle Sprain, Form - Excuse from Work, School, or Ph ysical Activity Scripts Hydrocodone/Apap 5-325 (NORCO 5-325 TABLET) 1 Each Tablet 1-2 EACH PO PRN Q6HRS PRN for PAIN, #15 as needed for pain Prov: CAIO BERRIOS Jr. DO 07/26/19 Diclofenac Sodium (DICLOFENAC SODIUM) 50 Mg Tablet. 1 TAB PO BID PRN for PAIN, #20 TAB Prov: CAIO BERRIOS Jr. DO 07/26/19 Justicifation of Admission Dx: Justifications for Admission: Justification of Admission Dx: Comment: (Not applicable) CAIO BERRIOS Jr., DO Jul 26, 2019 20:51
[2019-07-26] MEDS ORDERED: HYDROcodone/APAP 7.5/325MG 1 TAB TABLET PO ONE (21:30)
--- NOTE | 2019-07-26 21:41 | RAD ---
ANKLE RIGHT 3V History: Reason: right ankle pain post fall / Spl. Instructions: / History: Technique: 3 views right foot. Comparison: None. Findings: Normal alignment. Symmetric ankle mortise. Lateral ankle soft tissue swelling. No acute fracture. Impression: 1. No acute osseous abnormality. 2. Lateral ankle soft tissue swelling. Electronically signed by: Hayes Hayden DO (07/26/2019 9:38 PM) [facility]
[2019-07-26] MEDS ORDERED: DICL50TA4 PO (21:51)
[2019-07-26] MEDS ORDERED: HYDR-3164 PO (21:51)
== END 2019-07-26 22:15 | disposition home or self-care (01) ==
LOC: ER 20:26
DX: S93.491A Sprain of other ligament of right ankle, initial encounter (principal); R60.0 Localized edema; J45.909 Unspecified asthma, uncomplicated; G89.29 Other chronic pain; Z98.51 Tubal ligation status; Z98.890 Other specified postprocedural states; Z88.8 Allergy status to other drugs, medicaments and biological substances; W54.8XXA Other contact with dog, initial encounter; Y93.02 Activity, running; Y92.89 Other specified places as the place of occurrence of the external cause; Y99.8 Other external cause status
CPT/HCPCS: 73610; 99283

== ENCOUNTER 2020-03-06 23:02 | Inpatient (IN) | payer SELFPAY ==
[~2020-03-06] VITALS: Ht 175.3 cm; Wt 122.8 kg
--- NOTE | 2020-03-06 23:43 | PHYS DOC ---
Past Medical History Past Medical History: Anemia, Asthma Additional Past Medical Histor: Chronic low back pain Past Surgical History: Tubal ligation Additional Past Surgical Histo: D&C, wisdom teeth Smoking Status: Never Smoker Alcohol Use: None Drug Use: None Adult General Chief Complaint Chief Complaint: ABDOMINAL PAIN [facility] HPI Patient is a 44 year old female with past medical history of anemia, asthma, obesity presents emergency department complaint of new onset of midepigastric abdominal pain and vomiting. Patient states that approximate 1 hour ago while lying in bed she had sudden onset of epigastric pain followed by 3 episodes of nonbloody nonbilious vomiting. Denies any diarrhea. Denies any fever, chills, chest pain or shortness of breath. Denies any history of similar symptoms. Does not appear to be exacerbated by food. Review of Systems Review of Systems Constitutional: Denies fever or chills [] Eyes: Denies change in visual acuity, redness, or eye pain [] HENT: Denies nasal congestion or sore throat [] Respiratory: Denies cough or shortness of breath [] Cardiovascular: No additional information not addressed in HPI [] GI: Denies abdominal pain, nausea, vomiting, bloody stools or diarrhea [] : Denies dysuria or hematuria [] Musculoskeletal: Denies back pain or joint pain [] Integument: Denies rash or skin lesions [] Neurologic: Denies headache, focal weakness or sensory changes [] Endocrine: Denies polyuria or polydipsia [] All other systems were reviewed and found to be within normal limits, except as documented in this note. Current Medications Current Medications Current Medications Medications (Trade) Dose Ordered Sig/[facility] Start Time Stop Time Status Last Admin Dose Admin Morphine Sulfate (Morphine Sulfate) 4 mg 1X ONCE 03/06/20 23:45 03/06/20 23:46 Ondansetron HCl (Zofran) 4 mg 1X ONCE 03/06/20 23:45 03/06/20 23:46 Pantoprazole Sodium (PROTONIX VIAL for IV PUSH) 40 mg 1X ONCE 03/06/20 23:45 03/06/20 23:46 UNV Sodium Chloride 1,000 ml @ 1,000 mls/hr Q1H 03/06/20 23:45 03/07/20 00:44 Allergies Allergies Allergies Coded Allergies Type Severity Reaction Last Updated Verified loratadine Allergy Intermediate swelling 07/31/15 Yes Physical Exam Physical Exam Constitutional: Well developed, well nourished, no acute distress, non-toxic appearance. [] HENT: Normocephalic, atraumatic, bilateral external ears normal, oropharynx moist, no oral exudates, nose normal. [] Eyes: PERRLA, EOMI, conjunctiva normal, no discharge. [] Neck: Normal range of motion, no tenderness, supple, no stridor. [] Cardiovascular:Heart rate regular rhythm, no murmur [] Lungs & Thorax: Bilateral breath sounds clear to auscultation [] Abdomen: Bowel sounds normal, soft, significant right upper quadrant tenderness with Nayak sign, no masses, no pulsatile masses. [] Skin: Warm, dry, no erythema, no rash. [] Back: No tenderness, no CVA tenderness. [] Extremities: No tenderness, no cyanosis, no clubbing, ROM intact, no edema. [] Neurologic: Alert and oriented X 3, normal motor function, normal sensory function, no focal deficits noted. [] Psychologic: Affect normal, judgement normal, mood normal. [] EKG EKG [] Radiology/Procedures Radiology/Procedures [] Course & Med Decision Making Course & Med Decision Making Pertinent Labs and Imaging studies reviewed. (See chart for details) [] Dragon Disclaimer Dragon Disclaimer This electronic medical record was generated, in whole or in part, using a voice recognition dictation system. Departure Departure Referrals: PRAFUL DA SILVA MD (PCP) AYSE LOUISE MD Mar 06, 2020 23:43
[2020-03-06] MEDS ORDERED: ONDANSETRON PF 4 MG/2 ML VIAL. IVP ONE (23:45)
[2020-03-06] MEDS ORDERED: MORPHINE SULFATE 4 MG/ML VIAL. IV ONE (23:45)
[2020-03-06] MEDS ORDERED: IV NORMAL SALINE 1000ML BAG 1,000 ML IV SCH (23:45)
[2020-03-06] MEDS ORDERED: PANTOPRAZOLE IV PUSH 40 MG VIAL. IVP ONE (23:45)
[2020-03-07] VITALS (14 sets, daily range): BP systolic 101–131; BP diastolic 58–78
--- NOTE | 2020-03-07 00:21 | RAD ---
Right upper quadrant abdominal ultrasound History: Reason: RUQ PAIN/GALLBLADDER / Spl. Instructions: / History: Comparison: None. Technique: Transabdominal ultrasound images are obtained. Findings: Due to overlying bowel gas portions of the liver are obscured. The pancreas is nearly completely obsc ured. Liver is normal in echogenicity. Right hepatic lobe measures 15.7 cm. There is no gallbladder wall thickening or cholelithiasis or pericholecystic fluid. Common bile duct caliber is normal measuring 5 mm in diameter. The right kidney measures 10.2 cm in length. There is no hydronephrosis. IVC is unremarkable. IMPRESSION: No evidence of cholecystitis. Electronically signed by: Romero Yang MD (03/07/2020 12:19 AM) [facility]
[2020-03-07 00:39] LABS: CREATININE 1.1 mg/dL (0.6-1.0); GFR 64.7
[2020-03-07 00:45] LABS: ALBUMIN 3.5 g/dL (3.4-5.0); ALBUMIN/GLOBULIN RATIO 0.8 (1.0-1.7); TOTAL BILIRUBIN 0.2 mg/dL (0.2-1.0); TOTAL PROTEIN 7.9 g/dL (6.4-8.2)
[2020-03-07 00:47] LABS: BASO # 0.1 x10^3/uL (0.0-0.2); BASO % 2 % (0-3); EOS # 0.1 x10^3/uL (0.0-0.7); EOS % 1 % (0-3); HEMATOCRIT 21.8 % (36.0-47.0); LYMPH # 2.1 x10^3/uL (1.0-4.8); LYMPH % 32 % (24-48); MEAN CORPUSCULAR HEMOGLOBIN 17 pg (25-35); MEAN CORPUSCULAR HGB CONC 30 g/dL (31-37); MEAN CORPUSCULAR VOLUME 55 fL (79-100); MONO # 0.6 x10^3/uL (0.0-1.1); MONO % 10 % (0-9); NEUT # 3.5 x10^3/uL (1.8-7.7); NEUT % 55 % (31-73); PLATELET COUNT 580 x10^3/uL (140-400); RED BLOOD COUNT 3.95 x10^6/uL (3.50-5.40); RED CELL DISTRIBUTION WIDTH 20.1 % (11.5-14.5); WHITE BLOOD COUNT 6.4 x10^3/uL (4.0-11.0)
[2020-03-07 00:50] LABS: HEMOGLOBIN 6.6 g/dL (12.0-15.5)
[2020-03-07] MEDS ORDERED: IOHEXOL 300 MG/ML 100ML VIAL. IV ONE (01:30)
[2020-03-07] MEDS ORDERED: CONTRAST GIVEN. MC PRN (01:30)
[2020-03-07 01:37] LABS: ANISOCYTOSIS MOD; HYPOCHROMIA MARKED; MICROCYTOSIS MARKED; PLT ESTIMATE INCREASED (ADEQUATE); POIKILOCYTOSIS MOD
[2020-03-07 01:38] LABS: OVALOCYTES MOD; SCHISTOCYTES OCC; SPHEROCYTES FEW; TARGET CELLS OCC
[2020-03-07 01:39] LABS: POLYCHROMASIA SLIGHT; TEAR DROP CELLS OCC
[2020-03-07] MEDS ORDERED: ONDANSETRON PF 4 MG/2 ML VIAL. IV PRN ×2 (02:15→08:30)
[2020-03-07] MEDS ORDERED: IV NORMAL SALINE 1000ML BAG 1,000 ML IV SCH (02:15)
[2020-03-07] MEDS ORDERED: MORPHINE SULFATE 4 MG/ML VIAL. IV PRN (02:15)
--- NOTE | 2020-03-07 02:19 | RAD ---
PQRS Compliance Statement: One or more of the following individualized dose reduction techniques were utilized for this examinat ion: 1. Automated exposure control 2. Adjustment of the mA and/or kV according to patient size 3. Use of iterative reconstruction technique CT ABDOMEN+PELVIS W Clinical Indication: Reason: abdominal pain, Comparison: None. Technique: Helical CT imaging of the abdomen and pelvis is performed after 75 cc of Omnipaque 300 IV contrast. Oral contrast not administered. Findings: The lung bases are clear. Cardiac size is normal. The liver, gallbladder, spleen, pancreas, adrenal glands, abdominal aorta, and kidneys are normal. There is no obvious abnormality of the stomach. There are subcentimeter mesenteric lymph nodes, no ad enopathy. There is no dilated small bowel. The appendix is normal. There are scattered stool in the c olon. No colon wall thickening is seen. No abdominal free fluid. Uterus is anteverted. There is suggestion of a 1.5 cm right ovary functional cyst. Urinary bladder is normal. There is no pelvic free fluid. No acute bone abnormality. IMPRESSION: No acute abdominal or pelvic abnormality. Electronically signed by: Romero Yang MD (03/07/2020 2:17 AM) [facility]
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
[2020-03-07 04:38] LABS: PREG TEST PT QUAL NEGATIVE (NEG)
--- NOTE | 2020-03-07 07:56 | EKG ---
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
[2020-03-07 07:57] LABS: HEMOGLOBIN 7.3 g/dL (12.0-15.5); RED BLOOD COUNT 4.14 x10^6/uL (3.50-5.40); RED CELL DISTRIBUTION WIDTH 20.8 % (11.5-14.5); WHITE BLOOD COUNT 5.8 x10^3/uL (4.0-11.0)
--- NOTE | 2020-03-07 08:08 | PDOC1 ---
History and Physical Date of Admission Date of Admission DATE: 03/07/20 TIME: 08:08 Identification/Chief Complaint Chief Complaint ABDOMINAL PAIN AND VOMITING History of Present Illness History of Present Illness 44 year old female with past medical history of anemia, asthma, obesity presents emergency department complaint of new onset of midepigastric abdominal pain and vomiting. Patient states that approximate 1 hour ago while lying in bed she had sudden onset of epigastric pain followed by 3 episodes of nonbloody nonbilious vomiting. Denies any diarrhea. Denies any fever, chills, chest pain or shortness of breath. She has a history of NSAID USE chronically, with places her at risk of UGI BLEEDING has had microcytic anemia since 2016 on review of chart Past Medical History Pulmonary: Asthma Family History Family History: Hypertension Social History Smoke: No ALCOHOL: none Drugs: None Current Medications Current Medications Current Medications Sodium Chloride 1,000 ml @ 1,000 mls/hr Q1H IV Last administered on 03/07/20at 00:35; Start 03/06/20 at 23:45; Stop 03/07/20 at 00:44; Status DC Ondansetron HCl (Zofran) 4 mg 1X ONCE IVP Last administered on 03/07/20at 00:35; Start 03/06/20 at 23:45; Stop 03/06/20 at 23:46; Status DC Morphine Sulfate (Morphine Sulfate) 4 mg 1X ONCE IV Last administered on 03/07/20at 00:36; Start 03/06/20 at 23:45; Stop 03/06/20 at 23:46; Status DC Pantoprazole Sodium (PROTONIX VIAL for IV PUSH) 40 mg 1X ONCE IVP Last administered on 03/07/20at 00:36; Start 03/06/20 at 23:45; Stop 03/06/20 at 23:46; Status DC Iohexol (Omnipaque 300 Mg/ml) 75 ml 1X ONCE IV Last administered on 03/07/20at 01:52; Start 03/07/20 at 01:30; Stop 03/07/20 at 01:31; Status DC Info (CONTRAST GIVEN -- Rx MONITORING) 1 each PRN DAILY PRN MC SEE COMMENTS; Start 03/07/20 at 01:30; Stop 03/09/20 at 01:29 Ondansetron HCl (Zofran) 4 mg PRN Q8HRS PRN IV NAUSEA/VOMITING; Start 03/07/20 at 02:15; Stop 03/08/20 at 02:14 Morphine Sulfate (Morphine Sulfate) 4 mg PRN Q2HR PRN IV PAIN; Start 03/07/20 at 02:15; Stop 03/08/20 at 02:14 Sodium Chloride 1,000 ml @ 0 mls/hr Q0M IV ; Start 03/07/20 at 02:15; Stop 03/08/20 at 02:14 Active Scripts Active [place] 5-325 Tablet (Acetaminophen/Hydrocodone Bitart) 1 Each Tablet 1-2 Each PO PRN Q6HRS PRN as needed for pain Diclofenac Sodium 50 Mg Tablet. 1 Tab PO BID PRN Tramadol Hcl 50 Mg Tablet 50 Mg PO Q6HRS PRN Diclofenac Sodium 50 Mg Tablet.dr 1 Tab PO BID PRN Diflucan (Fluconazole) 150 Mg Tablet 1 Tab PO ONCE Zofran (Ondansetron Hcl) 4 Mg Tablet 1 Tab PO PRN Q6-8HRS Zithromax (Azithromycin) 500 Mg Tablet 1 Tab PO DAILY [place] 5-325 Tablet (Acetaminophen/Hydrocodone Bitart) 1 Each Tablet 1 Tab PO PRN Q6HRS PRN Naprosyn (Naproxen) 500 Mg Tablet 1 Tab PO BID Hydrochlorothiazide Tablet (Hydrochlorothiazide) 12.5 Mg Tablet 12.5 Mg PO DAILY 5 Days Prednisone 50 Mg Tablet 1 Tab PO DAILY Tessalon Perle (Benzonatate) 100 Mg Capsule 1 Cap PO TID Compazine (Prochlorperazine Maleate) 10 Mg Tablet 10 Mg PO TID PRN Proventil Hfa Inhaler (Albuterol Sulfate) 6.7 Gm Hfa.aer.ad 1 Puff IH PRN Q4HRS PRN Zofran Odt (Ondansetron) 4 Mg Tab.rapdis 1 Tab SL Q8HRS Tamiflu (Oseltamivir Phosphate) 75 Mg Capsule 1 Cap PO BID Hydrocodone-Apap 5-325 (Hydrocodone Bit/Acetaminophen) 1 Each Tablet 1 Tab PO PRN Q6HRS PRN Be careful as this medication may cause you to be drowsy or tired. Do not drive on this medication. Prednisone 50 Mg Tablet 50 Mg PO DAILY Amoxicillin 875 Mg Tablet 875 Mg PO BID Tessalon Perle (Benzonatate) 100 Mg Capsule 1 Cap PO TID Lidocaine Hcl Viscous (Lidocaine Hcl) 20 Mg/1 Ml Solution 5 Ml PO TID PRN Reported Albuterol Sulfate Conc Neb Soln (Albuterol Sulfate) 2.5 Mg/0.5 Ml Vial.neb 1 Vial NEB Q6HRS Proair Hfa Inhaler (Albuterol Sulfate) 8.5 Gm Hfa.aer.ad 1 Puff INH PRN Q6HRS PRN Allergies Allergies: Coded Allergies: loratadine (Verified Allergy, Intermediate, swelling, 07/31/15) ROS Review of System Constitutional: Denies fever or chills [] Eyes: Denies change in visual acuity, redness, or eye pain [] HENT: Denies nasal congestion or sore throat [] Respiratory: Denies cough or shortness of breath [] Cardiovascular: No additional information not addressed in HPI [] GI: Denies abdominal pain, nausea, vomiting, bloody stools or diarrhea [] : Denies dysuria or hematuria [] Musculoskeletal: Denies back pain or joint pain [] Integument: Denies rash or skin lesions [] Neurologic: Denies headache, focal weakness or sensory changes [] Endocrine: Denies polyuria or polydipsia [] 14 PT systems were reviewed and found to be within normal limits, except as documented General: YES: Fatigue Eyes: No Blurry vision, No Decreased vision, No Double vision, No Dry eyes, No Excessive tearing, No Eye Pain, No Itchy Eyes, No Loss of vision, No Photophobia, No Scotomata, No Uses contacts, No Uses glasses, No Other Hematological and Lymphatic: YES: Bleeding Problems Respiratory: No: Cough, Hemoptysis, Orthopnea, Pleuritic Pain, Shortness of breath, SOB with excertion, Sputum Changes, Stridor, Tachypnea, Wheezing, Other Cardiovascular: No Chest Pain, No Palpitations, No Orthopnea, No Paroxysmal Noc. Dyspnea, No Edema, No Lt Headedness, No Other Gastrointestinal: Yes Nausea, Yes Vomiting, Yes Abdominal Pain Genitourinary: No Dysuria, No Frequency, No Incontinence, No Hematuria, No Retention, No Discharge, No Urgency, No Pain, No Flank Pain, No Other, No , No , No , No , No , No , No Skin: No Dry Skin, No Eczema, No Hair Changes, No Lumps, No Mole Changes, No Mottling, No Nail Changes, No Pruritus, No Rash, No Skin Lesion Changes, No Other, No Acne Physical Exam Physical Exam Constitutional: Well developed, well nourished, no acute distress, non-toxic appearance. [] HENT: Normocephalic, atraumatic, bilateral external ears normal, oropharynx moist, no oral exudates, nose normal. [] Eyes: PERRLA, EOMI, conjunctiva normal, no discharge. [] Neck: Normal range of motion, no tenderness, supple, no stridor. [] Cardiovascular:Heart rate regular rhythm, no murmur [] Lungs & Thorax: Bilateral breath sounds clear to auscultation [] Abdomen: Bowel sounds normal, soft, significant right upper quadrant tenderness with Nayak sign, no masses, no pulsatile masses. [] Skin: Warm, dry, no erythema, no rash. [] Back: No tenderness, no CVA tenderness. [] Extremities: No tenderness, no cyanosis, no clubbing, ROM intact, no edema. [] Neurologic: Alert and oriented X 3, normal motor function, normal sensory function, no focal deficits noted. [] Psychologic: Affect normal, judgment normal, mood normal. [] General: Alert, Oriented X3, Cooperative, No acute distress Lungs: Clear to auscultation Heart: RRR Breasts: Not examined Abdomen: Soft Rectal Exam: not examined PELVIC: Examination not indicated Extremities: No cyanosis Skin: No significant lesion Neuro: Normal speech, Cranial nerves 3-12 NL Psych/Mental Status: Mental status NL, Mood NL Vitals Vitals Vital Signs Date Time Temp Pulse Resp B/P (MAP) Pulse Ox O2 Delivery O2 Flow Rate FiO2 03/07/20 06:45 98.1 66 18 109/62 98.1 03/07/20 04:27 98 Room Air Labs Labs Laboratory Tests Test 03/07/20 00:23 03/07/20 00:33 03/07/20 07:15 Sodium Level 138 mmol/L (136-145) Potassium Level 4.0 mmol/L (3.5-5.1) Chloride Level 103 mmol/L (98-107) Carbon Dioxide Level 25 mmol/L (21-32) Anion Gap 10 (6-14) Blood Urea Nitrogen 11 mg/dL (7-20) Creatinine 1.1 mg/dL (0.6-1.0) Estimated GFR (Cockcroft-Gault) 64.7 BUN/Creatinine Ratio 10 (6-20) Glucose Level 100 mg/dL (70-99) Calcium Level 9.0 mg/dL (8.5-10.1) Total Bilirubin 0.2 mg/dL (0.2-1.0) Aspartate Amino Transf (AST/SGOT) 12 U/L (15-37) Alanine Aminotransferase (ALT/SGPT) 20 U/L (14-59) Alkaline Phosphatase 47 U/L (46-116) Creatine Kinase 162 U/L (26-192) Total Protein 7.9 g/dL (6.4-8.2) Albumin 3.5 g/dL (3.4-5.0) Albumin/Globulin Ratio 0.8 (1.0-1.7) Lipase 85 U/L (73-393) Serum Test, Qualitative Negative (NEG) White Blood Count 6.4 x10^3/uL (4.0-11.0) 5.8 x10^3/uL (4.0-11.0) Red Blood Count 3.95 x10^6/uL (3.50-5.40) 4.14 x10^6/uL (3.50-5.40) Hemoglobin 6.6 g/dL (12.0-15.5) 7.3 g/dL (12.0-15.5) Hematocrit 21.8 % (36.0-47.0) 24.0 % (36.0-47.0) Mean Corpuscular Volume 55 fL (79-100) 57 fL (79-100) Mean Corpuscular Hemoglobin 17 pg (25-35) 18 pg (25-35) Mean Corpuscular Hemoglobin Concent 30 g/dL (31-37) 31 g/dL (31-37) Red Cell Distribution Width 20.1 % (11.5-14.5) 20.8 % (11.5-14.5) Platelet Count 580 x10^3/uL (140-400) 550 x10^3/uL (140-400) Neutrophils (%) (Auto) 55 % (31-73) Lymphocytes (%) (Auto) 32 % (24-48) Monocytes (%) (Auto) 10 % (0-9) Eosinophils (%) (Auto) 1 % (0-3) Basophils (%) (Auto) 2 % (0-3) Neutrophils # (Auto) 3.5 x10^3/uL (1.8-7.7) Lymphocytes # (Auto) 2.1 x10^3/uL (1.0-4.8) Monocytes # (Auto) 0.6 x10^3/uL (0.0-1.1) Eosinophils # (Auto) 0.1 x10^3/uL (0.0-0.7) Basophils # (Auto) 0.1 x10^3/uL (0.0-0.2) Platelet Estimate Increased (ADEQUATE) Polychromasia Slight Hypochromasia Marked Poikilocytosis Mod Anisocytosis Mod Microcytosis Marked Spherocytes Few Target Cells Occ Tear Drop Cells Occ Ovalocytes Mod Schistocytes Occ Laboratory Tests Test 03/07/20 00:23 03/07/20 00:33 03/07/20 07:15 Sodium Level 138 mmol/L (136-145) Potassium Level 4.0 mmol/L (3.5-5.1) Chloride Level 103 mmol/L (98-107) Carbon Dioxide Level 25 mmol/L (21-32) Anion Gap 10 (6-14) Blood Urea Nitrogen 11 mg/dL (7-20) Creatinine 1.1 mg/dL (0.6-1.0) Estimated GFR (Cockcroft-Gault) 64.7 BUN/Creatinine Ratio 10 (6-20) Glucose Level 100 mg/dL (70-99) Calcium Level 9.0 mg/dL (8.5-10.1) Total Bilirubin 0.2 mg/dL (0.2-1.0) Aspartate Amino Transf (AST/SGOT) 12 U/L (15-37) Alanine Aminotransferase (ALT/SGPT) 20 U/L (14-59) Alkaline Phosphatase 47 U/L (46-116) Creatine Kinase 162 U/L (26-192) Total Protein 7.9 g/dL (6.4-8.2) Albumin 3.5 g/dL (3.4-5.0) Albumin/Globulin Ratio 0.8 (1.0-1.7) Lipase 85 U/L (73-393) Serum Test, Qualitative Negative (NEG) White Blood Count 6.4 x10^3/uL (4.0-11.0) 5.8 x10^3/uL (4.0-11.0) Red Blood Count 3.95 x10^6/uL (3.50-5.40) 4.14 x10^6/uL (3.50-5.40) Hemoglobin 6.6 g/dL (12.0-15.5) 7.3 g/dL (12.0-15.5) Hematocrit 21.8 % (36.0-47.0) 24.0 % (36.0-47.0) Mean Corpuscular Volume 55 fL (79-100) 57 fL (79-100) Mean Corpuscular Hemoglobin 17 pg (25-35) 18 pg (25-35) Mean Corpuscular Hemoglobin Concent 30 g/dL (31-37) 31 g/dL (31-37) Red Cell Distribution Width 20.1 % (11.5-14.5) 20.8 % (11.5-14.5) Platelet Count 580 x10^3/uL (140-400) 550 x10^3/uL (140-400) Neutrophils (%) (Auto) 55 % (31-73) Lymphocytes (%) (Auto) 32 % (24-48) Monocytes (%) (Auto) 10 % (0-9) Eosinophils (%) (Auto) 1 % (0-3) Basophils (%) (Auto) 2 % (0-3) Neutrophils # (Auto) 3.5 x10^3/uL (1.8-7.7) Lymphocytes # (Auto) 2.1 x10^3/uL (1.0-4.8) Monocytes # (Auto) 0.6 x10^3/uL (0.0-1.1) Eosinophils # (Auto) 0.1 x10^3/uL (0.0-0.7) Basophils # (Auto) 0.1 x10^3/uL (0.0-0.2) Platelet Estimate Increased (ADEQUATE) Polychromasia Slight Hypochromasia Marked Poikilocytosis Mod Anisocytosis Mod Microcytosis Marked Spherocytes Few Target Cells Occ Tear Drop Cells Occ Ovalocytes Mod Schistocytes Occ Images Images Right upper quadrant abdominal ultrasound History: Reason: RUQ PAIN/GALLBLADDER / Spl. Instructions: / History: Comparison: None. Technique: Transabdominal ultrasound images are obtained. Findings: Due to overlying bowel gas portions of the liver are obscured. The pancreas is nearly completely obscured. Liver is normal in echogenicity. Right hepatic lobe measures 15.7 cm. There is no gallbladder wall thickening or cholelithiasis or pericholecystic fluid. Common bile duct caliber is normal measuring 5 mm in diameter. The right kidney measures 10.2 cm in length. There is no hydronephrosis. IVC is unremarkable. IMPRESSION: No evidence of cholecystitis. Electronically signed by: Romero Yang MD (03/07/2020 12:19 AM) [facility] DICTATED and SIGNED BY: ROMERO YANG MD TATUS: REG ER ORD. PHYSICIAN: AYSE LOUISE MD REASON: abdominal pain, OMNI 300, 75 ML IV PROCEDURE: CT ABD PELV W/ IV CONTRST ONLY PQRS Compliance Statement: One or more of the following individualized dose reduction techniques were utilized for this examination: 1. Automated exposure control 2. Adjustment of the mA and/or kV according to patient size 3. Use of iterative reconstruction technique CT ABDOMEN+PELVIS W Clinical Indication: Reason: abdominal pain, Comparison: None. Technique: Helical CT imaging of the abdomen and pelvis is performed after 75 cc of Omnipaque 300 IV contrast. Oral contrast not administered. Findings: The lung bases are clear. Cardiac size is normal. The liver, gallbladder, spleen, pancreas, adrenal glands, abdominal aorta, and kidneys are normal. There is no obvious abnormality of the stomach. There are subcentimeter mesenteric lymph nodes, no adenopathy. There is no dilated small bowel. The appendix is normal. There are scattered stool in the colon. No colon wall thick ening is seen. No abdominal free fluid. Uterus is anteverted. There is suggestion of a 1.5 cm right ovary functional cyst. Urinary bladder is normal. There is no pelvic free fluid. No acute bone abnormality. IMPRESSION: No acute abdominal or pelvic abnormality. Electronically signed by: Romero Yang MD (03/07/2020 2:17 AM) [facility] V[facility] Prophylaxis Ordered VTE Prophylaxis Devices: No VTE Pharmacological Prophylaxi: Contraindicated Assessment/Plan Assessment/Plan IMPRESSION 1. Profound acute ON CHRONIC microcytic anemia, suspect low iron stores, has had micro indices since 2016 GI CONSULT MAY benefit from endoscopy, KEEP NPO FE PANEL SERIAL H/H iv iron ferritin level Needs DIRECTOR CORPORATE evaluation and outpatient scopes 2. ABDOMINAL PAIN, with vomiting, possible PUD prn iv zofran iv protonix npo until seen by GI 3. Morbid obesity wt loss need discussed 4. asthma hx con home meds 5. .5 cm right ovary functional cyst ASYMPTOMATIC 6. chronic low back pain avoid NSAIDS pt/ot 7. ACUTE RENAL INJURY FROM NSAID USE AND hypovolemia, emesis iv fluid support 8. DVT PROPHYLAXIS no lovenox due to possible PUB SCD'S EARLY AMBULATION 9. DIRECTOR CORPORATE CONSULT Justifications for Admission Other Justification ALBA CACERES MD Mar 07, 2020 08:08
[2020-03-07] MEDS ORDERED: guaiFENesin ORAL 200 MG/10 ML LIQUID. PO PRN (08:30)
[2020-03-07] MEDS ORDERED: 0.9 % SODIUM CHLORIDE 10 ML DISP.SYRIN. IV PRN (08:30)
[2020-03-07] MEDS ORDERED: PROCHLORPERAZINE 5 MG TABLET. PO PRN (08:30)
[2020-03-07] MEDS ORDERED: ACETAMINOPHEN 325 MG TABLET. PO PRN (08:30)
[2020-03-07] MEDS ORDERED: ACETAMINOPHEN 650 MG SUPP.RECT. PR PRN (08:30)
[2020-03-07] MEDS ORDERED: ALBUTEROL SULFATE 2.5 MG/3 ML NEBU. NEB PRN (08:30)
[2020-03-07] MEDS ORDERED: LORazepam 0.5 MG TABLET PO PRN (08:30)
[2020-03-07] MEDS ORDERED: SODIUM PHOSPHATES 19/7GM 133 ML ENEMA. PR PRN (08:30)
[2020-03-07] MEDS ORDERED: DOCUSATE SODIUM 100 MG CAPSULE. PO PRN (08:30)
[2020-03-07] MEDS ORDERED: ALBUTEROL SULFATE 2.5 MG/3 ML NEBU. INH PRN ×2 (08:30→18:37)
[2020-03-07] MEDS ORDERED: PANTOPRAZOLE IV PUSH 40 MG VIAL. IVP SCH (09:00)
[2020-03-07] MEDS: IV NORMAL SALINE 1000ML BAG 1,000 ML IV SCH ×2 (10:05→17:18)
--- NOTE | 2020-03-07 10:10 | NUR ---
SW following. Discussed with RN, pt from home, room air, NPO. GI consulted. CT abd/pelvis negative. Med Assist following for self pay status. SW will continue to follow.
--- NOTE | 2020-03-07 10:46 | PDOC2 ---
GI CONSULT Date of Service: DATE: 03/07/20 TIME: 10:30 Reason For Consult: possible PUD from NSAIDs HPI: HPI: 44 y/o female admitted through ER. Acute onset of epigastric pain while laying in bed yesterday "like a bomb went off" - "came in waves." Denies precipitating events. Had similar pain in the past - "years ago" but was "sharp" then. Says evaluated w/ x-rays in the past. No radiation but was associated w/ vomiting x [address] to [address] hospital. She feels better now and would like something to eat. No reflux/heartburn, dysphagia, diarrhea, constipation, hematemesis, hematochezia, melena, change in appetite, weight loss, shortness of breath, or dizziness. Reports normal EGD ~20 years ago (thinks done here). No previous colonoscopy. No GB, liver, or pancreas history. Remote h/o "ulcer from food I ate" - can't remember how this was diagnosed. Long h/o anemia - takes iron QD. No previous blood transfusions. Reviewed past labs - microcytic anemia here since 2014 - Hgb lower this time. ER summary report mentions h/o heavy periods. She has monthly periods that last about 7 days that are sometimes heavy (3-4 pads daily) and sometimes not (2 pads daily). Denies NSAIDs. PMH: PMH: asthma, anemia D&C, tubal ligation, wisdom teeth extraction FH: Family History: Other (father - gastric bypass for weight loss) Social History: Smoke: No ALCOHOL: none Drugs: None ROS: GEN: Denies fevers, chills, sweats HEENT: Denies blurred vision, sore throat CV: Denies chest pain RESP: Denies shortness of air, cough GI: Per HPI : Denies hematuria, dysuria ENDO: Denies weight changes NEURO: Denies confusion, dizziness MSK: Denies weakness, joint pain/swelling SKIN: Denies jaundice, pruritus Vitals: Vitals: Vital Signs Date Time Temp Pulse Resp B/P (MAP) Pulse Ox O2 Delivery O2 Flow Rate FiO2 03/07/20 07:00 98.1 71 18 114/63 (80) 100 Room Air 98.1 Labs: Labs: Laboratory Tests Test 03/07/20 00:23 03/07/20 00:33 03/07/20 07:15 Sodium Level 138 mmol/L (136-145) Potassium Level 4.0 mmol/L (3.5-5.1) Chloride Level 103 mmol/L (98-107) Carbon Dioxide Level 25 mmol/L (21-32) Anion Gap 10 (6-14) Blood Urea Nitrogen 11 mg/dL (7-20) Creatinine 1.1 mg/dL (0.6-1.0) Estimated GFR (Cockcroft-Gault) 64.7 BUN/Creatinine Ratio 10 (6-20) Glucose Level 100 mg/dL (70-99) Calcium Level 9.0 mg/dL (8.5-10.1) Total Bilirubin 0.2 mg/dL (0.2-1.0) Aspartate Amino Transf (AST/SGOT) 12 U/L (15-37) Alanine Aminotransferase (ALT/SGPT) 20 U/L (14-59) Alkaline Phosphatase 47 U/L (46-116) Creatine Kinase 162 U/L (26-192) Total Protein 7.9 g/dL (6.4-8.2) Albumin 3.5 g/dL (3.4-5.0) Albumin/Globulin Ratio 0.8 (1.0-1.7) Lipase 85 U/L (73-393) Serum Test, Qualitative Negative (NEG) White Blood Count 6.4 x10^3/uL (4.0-11.0) 5.8 x10^3/uL (4.0-11.0) Red Blood Count 3.95 x10^6/uL (3.50-5.40) 4.14 x10^6/uL (3.50-5.40) Hemoglobin 6.6 g/dL (12.0-15.5) 7.3 g/dL (12.0-15.5) Hematocrit 21.8 % (36.0-47.0) 24.0 % (36.0-47.0) Mean Corpuscular Volume 55 fL (79-100) 57 fL (79-100) Mean Corpuscular Hemoglobin 17 pg (25-35) 18 pg (25-35) Mean Corpuscular Hemoglobin Concent 30 g/dL (31-37) 31 g/dL (31-37) Red Cell Distribution Width 20.1 % (11.5-14.5) 20.8 % (11.5-14.5) Platelet Count 580 x10^3/uL (140-400) 550 x10^3/uL (140-400) Neutrophils (%) (Auto) 55 % (31-73) Lymphocytes (%) (Auto) 32 % (24-48) Monocytes (%) (Auto) 10 % (0-9) Eosinophils (%) (Auto) 1 % (0-3) Basophils (%) (Auto) 2 % (0-3) Neutrophils # (Auto) 3.5 x10^3/uL (1.8-7.7) Lymphocytes # (Auto) 2.1 x10^3/uL (1.0-4.8) Monocytes # (Auto) 0.6 x10^3/uL (0.0-1.1) Eosinophils # (Auto) 0.1 x10^3/uL (0.0-0.7) Basophils # (Auto) 0.1 x10^3/uL (0.0-0.2) Platelet Estimate Increased (ADEQUATE) Polychromasia Slight Hypochromasia Marked Poikilocytosis Mod Anisocytosis Mod Microcytosis Marked Spherocytes Few Target Cells Occ Tear Drop Cells Occ Ovalocytes Mod Schistocytes Occ Iron Level 64 ug/dL (50-170) Total Iron Binding Capacity 422 ug/dL (250-450) Iron Saturation 15 % (15-34) Ferritin 1 ng/mL (8-252) Allergies: Coded Allergies: loratadine (Verified Allergy, Intermediate, swelling, 07/31/15) Medications: Current Medications Medications (Trade) Dose Ordered Sig/Isa Route PRN Reason Start Time Stop Time Status Last Admin Dose Admin Sodium Chloride 1,000 ml @ 1,000 mls/hr Q1H IV 03/06/20 23:45 03/07/20 00:44 DC 03/07/20 00:35 Ondansetron HCl (Zofran) 4 mg 1X ONCE IVP 03/06/20 23:45 03/06/20 23:46 DC 03/07/20 00:35 Morphine Sulfate (Morphine Sulfate) 4 mg 1X ONCE IV 03/06/20 23:45 03/06/20 23:46 DC 03/07/20 00:36 Pantoprazole Sodium (PROTONIX VIAL for IV PUSH) 40 mg 1X ONCE IVP 03/06/20 23:45 03/06/20 23:46 DC 03/07/20 00:36 Iohexol (Omnipaque 300 Mg/ml) 75 ml 1X ONCE IV 03/07/20 01:30 03/07/20 01:31 DC 03/07/20 01:52 Pantoprazole Sodium (PROTONIX VIAL for IV PUSH) 40 mg DAILYAC IVP 03/07/20 09:00 03/07/20 10:05 Sodium Chloride 1,000 ml @ 125 mls/hr Q8H IV 03/07/20 08:30 03/07/20 10:05 Iron Sucrose 200 mg/Sodium Chloride 110 ml @ 55 mls/hr 1X ONCE IV 03/07/20 11:00 03/07/20 12:59 03/07/20 10:05 Imaging: Imaging: RUQ US 03/06 Findings: Due to overlying bowel gas portions of the liver are obscured. The pancreas is nearly completely obscured. Liver is normal in echogenicity. Right hepatic lobe measures 15.7 cm. There is no gallbladder wall thickening or cholelithiasis or pericholecystic fluid. Common bile duct caliber is normal measuring 5 mm in diameter. The right kidney measures 10.2 cm in length. There is no hydronephrosis. IVC is unremarkable. IMPRESSION: No evidence of cholecystitis. CT A/P w/ IV contrast 03/06 Findings: The lung bases are clear. Cardiac size is normal. The liver, gallbladder, spleen, pancreas, adrenal glands, abdominal aorta, and kidneys are normal. There is no obvious abnormality of the stomach. There are subcentimeter mese nteric lymph nodes, no adenopathy. There is no dilated small bowel. The appendix is normal. There are scattered stool in the colon. No colon wall thickening is seen. No abdominal free fluid. Uterus is anteverted. There is suggestion of a 1.5 cm right ovary functional cyst. Urinary bladder is normal. There is no pelvic free fluid. No acute bone abnormality. IMPRESSION: No acute abdominal or pelvic abnormality. PE: GEN: NAD HEENT: Atraumatic, PERRL LUNGS: CTAB HEART: RRR ABD: NABS, S/ND, mild epigastric discomfort EXTREMITY: No edema SKIN: No rashes, no jaundice NEURO/PSYCH: A & O 3 A/P: A/P: Epigastric pain, vomiting - resolving Microcytic anemia - chronic, no obvious GI bleeding - improved w/ transfusion Remote h/o "ulcer" - unclear details CRC screen - average risk BMI 40 -- Denies NSAID use to me. Elevated RDW and plt, ferritin 1, normal iron profile (but drawn after transfusion?) - ?really taking iron at home - note orders for IV iron here. Imaging unremarkable. Okay to ADAT per GI. 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 CAROLYN GILL Mar 07, 2020 10:46
[2020-03-07] MEDS ORDERED: IRON SUCROSE COMPLEX 200 MG in IV NORMAL SALINE 100ML 100 ML IV ONE (11:00)
[2020-03-07] MEDS: ALBUTEROL SULFATE 2.5 MG/3 ML NEBU. INH SCH ×2 (12:00→18:00)
[2020-03-07] MEDS ORDERED: NON FORMULARY ITEM (Albuterol Sulfate (Albuterol Sulfate Conc Neb Soln) 1 VIAL) NEB SCH (12:00)
[2020-03-07 21:24] LABS: BILIRUBIN,URINE NEGATIVE (NEG); CLARITY,URINE CLEAR; COLOR,URINE YELLOW; NITRITE,URINE NEGATIVE (NEG); PH,URINE 5.5 (<5.0-8.0); PROTEIN,URINE NEGATIVE (NEG-TRACE); UROBILINOGEN,URINE 0.2 mg/dL (0.2 mg/dL)
[2020-03-07 21:32] LABS: BACTERIA,URINE FEW /HPF (0-FEW); RBC,URINE 0 /HPF (0-2)
[2020-03-07 21:33] LABS: WBC,URINE OCC /HPF (0-4)
[2020-03-08 03:00] VITALS: BP 127/71
[2020-03-08] MEDS: IV NORMAL SALINE 1000ML BAG 1,000 ML IV SCH ×3 (04:40→13:53)
[2020-03-08 07:00] VITALS: BP 128/73
[2020-03-08 07:20] LABS: BASO # 0.1 x10^3/uL (0.0-0.2); BASO % 2 % (0-3); EOS # 0.1 x10^3/uL (0.0-0.7); EOS % 2 % (0-3); HEMATOCRIT 24.6 % (36.0-47.0); HEMOGLOBIN 7.5 g/dL (12.0-15.5); LYMPH # 2.6 x10^3/uL (1.0-4.8); LYMPH % 45 % (24-48); MEAN CORPUSCULAR HEMOGLOBIN 18 pg (25-35); MEAN CORPUSCULAR HGB CONC 31 g/dL (31-37); MEAN CORPUSCULAR VOLUME 58 fL (79-100); MONO # 0.4 x10^3/uL (0.0-1.1); MONO % 7 % (0-9); NEUT # 2.6 x10^3/uL (1.8-7.7); NEUT % 44 % (31-73); PLATELET COUNT 536 x10^3/uL (140-400); RED BLOOD COUNT 4.23 x10^6/uL (3.50-5.40); RED CELL DISTRIBUTION WIDTH 21.6 % (11.5-14.5); WHITE BLOOD COUNT 5.8 x10^3/uL (4.0-11.0)
[2020-03-08] MEDS ORDERED: PANTOPRAZOLE 40 MG TABLET.DR. PO SCH (07:30)
[2020-03-08 07:49] LABS: ALBUMIN 3.2 g/dL (3.4-5.0); ALBUMIN/GLOBULIN RATIO 0.8 (1.0-1.7); CALCIUM 8.6 mg/dL (8.5-10.1); CREATININE 1.1 mg/dL (0.6-1.0); GFR 64.7; TOTAL BILIRUBIN 0.2 mg/dL (0.2-1.0); TOTAL PROTEIN 7.3 g/dL (6.4-8.2)
--- NOTE | 2020-03-08 08:18 | PDOC ---
PROGRESS NOTES Date of Service: DATE: 03/08/20 TIME: 08:17 Chief Complaint Chief Complaint HOSPITAL DISCHARGE SUMMARY========[facility] DATE OF ADMIT 03-07-20 DATE OF DISCHARGE 03-08-20 COMPLICATIONS, NONE, PROGNOSIS ,, GOOD WITH FOLLOW UP CONSULTATIONS,, GI AND AMMUNITION OFFICER PROCEDURES PELVIS SONO, TRANSFUSION PRBC'S, TELE, CT ABDOMEN /PELVIS D/C CONDITION === GOOD FOLLOW UP AMMUNITION OFFICER 2-5 WEEKS,, GI SOON DIRECTED FOR ENDOSCOPY D/C ALLAN SEE MAR RETURN WITH FEVER, HEAVY BLEEDING, DIZZINESS, CHEST PAIN, RECTAL BLEEDING, VOMITING DIET REGULAR VTE Prophylaxis Ordered VTE Prophylaxis Devices: No VTE Pharmacological Prophylaxi: Contraindicated DISCHARGE DX Assessment/Plan IMPRESSION 1. Profound acute ON CHRONIC microcytic anemia, suspect low iron stores, has had micro indices since 2015 GI CONSULT MAY benefit from endoscopy, FE PANEL SERIAL H/H iv iron ferritin level Needs AMMUNITION OFFICER evaluation and outpatient scopes DIRECTED LUIS 2. ABDOMINAL PAIN, with vomiting, possible PUD prn iv zofran PO protonix GI OK WITH D/C TODAY 03-08 3. Morbid obesity wt loss need discussed 4. asthma hx con home meds 5. .5 cm right ovary functional cyst ASYMPTOMATIC 6. chronic low back pain avoid NSAIDS pt/ot 7. ACUTE RENAL INJURY FROM NSAID USE AND hypovolemia, emesis iv fluid support 8. DVT PROPHYLAXIS no lovenox due to possible PUB SCD'S EARLY AMBULATION 9. AMMUNITION OFFICER CONSULT, DR MENDENHALL 03-08 10. Menorrhagia WITH FIBROID UTERUS, CONTRIBUTOR TO ANEMIA Justifications for Admission Justifications for Admission History of Present Illness History of Present Illness Identification/Chief Complaint Chief Complaint ABDOMINAL PAIN AND VOMITING, RESOLVED History of Present Illness History of Present Illness 44 year old female with past medical history of anemia, asthma, obesity presents emergency department complaint of new onset of midepigastric abdominal pain and vomiting. Patient states that approximate 1 hour ago while lying in bed she had sudden onset of epigastric pain followed by 3 episodes of nonbloody nonbilious vomiting. Denies any diarrhea. Denies any fever, chills, chest pain or shortness of breath. She has a history of NSAID USE chronically, with places her at risk of UGI BLEEDING has had microcytic anemia since 2016 on review of chart Past Medical History Pulmonary: Asthma Family History Family History: Hypertension Social History Smoke: No ALCOHOL: none Drugs: None Vitals Vitals Vital Signs Date Time Temp Pulse Resp B/P (MAP) Pulse Ox O2 Delivery O2 Flow Rate FiO2 03/08/20 07:00 98.5 72 17 128/73 (91) 100 Room Air 98.5 Physical Exam Physical Exam Physical Exam Constitutional: Well developed, well nourished, no acute distress, non-toxic appearance. [] HENT: Normocephalic, atraumatic, bilateral external ears normal, oropharynx moist, no oral exudates, nose normal. [] Eyes: PERRLA, EOMI, conjunctiva normal, no discharge. [] Neck: Normal range of motion, no tenderness, supple, no stridor. [] Cardiovascular:Heart rate regular rhythm, no murmur [] Lungs & Thorax: Bilateral breath sounds clear to auscultation [] Abdomen: Bowel sounds normal, soft, significant right upper quadrant tenderness with Nayak sign, no masses, no pulsatile masses. [] Skin: Warm, dry, no erythema, no rash. [] Back: No tenderness, no CVA tenderness. [] Extremities: No tenderness, no cyanosis, no clubbing, ROM intact, no edema. [] Neurologic: Alert and oriented X 3, normal motor function, normal sensory function, no focal deficits noted. [] Psychologic: Affect normal, judgment normal, mood normal. [] General: Alert, Oriented X3, Cooperative, No acute distress Lungs: Clear to auscultation Heart: RRR Breasts: Not examined Abdomen: Soft Rectal Exam: not examined PELVIC: Examination not indicated Extremities: No cyanosis Skin: No significant lesion Neuro: Normal speech, Cranial nerves 3-12 NL Psych/Mental Status: Mental status NL, Mood NL General: Alert, Oriented X3, Cooperative, No acute distress Heart: Regular rate, Normal S1, Normal S2, No murmurs Lungs: Clear Abdomen: Soft Extremities: No clubbing, No cyanosis Skin: No significant lesion Labs LABS Signed PATIENT: BABATUNDE STEVENS ACCOUNT: [id number] : 1975 LOCATION: [address] [place] [address] AGE: 44 SEX: F EXAM STATUS: ADM IN ORD. PHYSICIAN: ALBA CACERES MD REASON: pain/rt ovary cyst on CT SCAN PROCEDURE: PELVIS COMPLETE Ultrasound pelvis complete HISTORY: Right-sided pelvic pain and ovarian cyst on CT Sonographic examination of pelvis was performed by transabdominal technique and multiple static images were obtained. The uterus measures 2.5 x 7.5 x 6.6 cm. There are multiple fibroids including a fibroid in the left body to lower uterine segment that measures 4.3 x 4.7 x 3.2 cm. The endometrium measures 1.7 mm. The right ovary appears normal with normal blood flow and measures 3.0 x 2.5 x 3.3 cm. There is a dominant follicle measures 2.1 x 1.6 x 1.8 cm. The left ovary appears normal with normal blood flow measures 2.0 x 2.0 x 1.2 cm. There is no free fluid in the pelvis. IMPRESSION: Fibroid uterus. This interpretation assumes the patient is not . Electronically signed by: Mohsen Concepcion III, MD (03/08/2020 2:08 PM) [email or web address] DICTATED and SIGNED BY: MOHSEN CONCEPCION III, MD DATE: 03/08/20 [id number] 0 Right upper quadrant abdominal ultrasound History: Reason: RUQ PAIN/GALLBLADDER / Spl. Instructions: / History: Comparison: None. Technique: Transabdominal ultrasound images are obtained. Findings: Due to overlying bowel gas portions of the liver are obscured. The pancreas is nearly completely obscured. Liver is normal in echogenicity. Right hepatic lobe measures 15.7 cm. There is no gallbladder wall thickening or cholelithiasis or pericholecystic fluid. Common bile duct caliber is normal measuring 5 mm in diameter. The right kidney measures 10.2 cm in length. There is no hydronephrosis. IVC is unremarkable. IMPRESSION: No evidence of cholecystitis. Electronically signed by: Romero Yang MD (03/07/2020 12:19 AM) [email or web address] DICTATED and SIGNED BY: ROMERO YANG MD DATE: 03/07/20 [id number] Laboratory Tests Test 03/07/20 21:12 03/08/20 06:20 Urine Collection Type Unknown Urine Color Yellow Urine Clarity Clear Urine pH 5.5 (<5.0-8.0) Urine Specific [place] <=1.005 (1.000-1.030) Urine Protein Negative mg/dL (NEG-TRACE) Urine Glucose (UA) Negative mg/dL (NEG) Urine Ketones (Stick) Negative mg/dL (NEG) Urine Blood Negative (NEG) Urine Nitrite Negative (NEG) Urine Bilirubin Negative (NEG) Urine Urobilinogen Dipstick 0.2 mg/dL (0.2 mg/dL) Urine Leukocyte Esterase Negative (NEG) Urine RBC 0 /HPF (0-2) Urine WBC Occ /HPF (0-4) Urine Squamous Epithelial Cells Mod /LPF Urine Bacteria Few /HPF (0-FEW) Sodium Level 143 mmol/L (136-145) Potassium Level 4.0 mmol/L (3.5-5.1) Chloride Level 108 mmol/L (98-107) Carbon Dioxide Level 24 mmol/L (21-32) Anion Gap 11 (6-14) Blood Urea Nitrogen 7 mg/dL (7-20) Creatinine 1.1 mg/dL (0.6-1.0) Estimated GFR (Cockcroft-Gault) 64.7 BUN/Creatinine Ratio 6 (6-20) Glucose Level 84 mg/dL (70-99) Calcium Level 8.6 mg/dL (8.5-10.1) Total Bilirubin 0.2 mg/dL (0.2-1.0) Aspartate Amino Transf (AST/SGOT) 13 U/L (15-37) Alanine Aminotransferase (ALT/SGPT) 18 U/L (14-59) Alkaline Phosphatase 43 U/L (46-116) Total Protein 7.3 g/dL (6.4-8.2) Albumin 3.2 g/dL (3.4-5.0) Albumin/Globulin Ratio 0.8 (1.0-1.7) Comment Review of Relevant I have reviewed the following items cande (where applicable) has been applied. Labs Laboratory Tests Test 03/07/20 00:23 03/07/20 00:33 03/07/20 07:15 03/07/20 21:12 Sodium Level 138 mmol/L (136-145) Potassium Level 4.0 mmol/L (3.5-5.1) Chloride Level 103 mmol/L (98-107) Carbon Dioxide Level 25 mmol/L (21-32) Anion Gap 10 (6-14) Blood Urea Nitrogen 11 mg/dL (7-20) Creatinine 1.1 mg/dL (0.6-1.0) Estimated GFR (Cockcroft-Gault) 64.7 BUN/Creatinine Ratio 10 (6-20) Glucose Level 100 mg/dL (70-99) Calcium Level 9.0 mg/dL (8.5-10.1) Total Bilirubin 0.2 mg/dL (0.2-1.0) Aspartate Amino Transf (AST/SGOT) 12 U/L (15-37) Alanine Aminotransferase (ALT/SGPT) 20 U/L (14-59) Alkaline Phosphatase 47 U/L (46-116) Creatine Kinase 162 U/L (26-192) Total Protein 7.9 g/dL (6.4-8.2) Albumin 3.5 g/dL (3.4-5.0) Albumin/Globulin Ratio 0.8 (1.0-1.7) Lipase 85 U/L (73-393) Serum Test, Qualitative Negative (NEG) White Blood Count 6.4 x10^3/uL (4.0-11.0) 5.8 x10^3/uL (4.0-11.0) Red Blood Count 3.95 x10^6/uL (3.50-5.40) 4.14 x10^6/uL (3.50-5.40) Hemoglobin 6.6 g/dL (12.0-15.5) 7.3 g/dL (12.0-15.5) Hematocrit 21.8 % (36.0-47.0) 24.0 % (36.0-47.0) Mean Corpuscular Volume 55 fL (79-100) 57 fL (79-100) Mean Corpuscular Hemoglobin 17 pg (25-35) 18 pg (25-35) Mean Corpuscular Hemoglobin Concent 30 g/dL (31-37) 31 g/dL (31-37) Red Cell Distribution Width 20.1 % (11.5-14.5) 20.8 % (11.5-14.5) Platelet Count 580 x10^3/uL (140-400) 550 x10^3/uL (140-400) Neutrophils (%) (Auto) 55 % (31-73) Lymphocytes (%) (Auto) 32 % (24-48) Monocytes (%) (Auto) 10 % (0-9) Eosinophils (%) (Auto) 1 % (0-3) Basophils (%) (Auto) 2 % (0-3) Neutrophils # (Auto) 3.5 x10^3/uL (1.8-7.7) Lymphocytes # (Auto) 2.1 x10^3/uL (1.0-4.8) Monocytes # (Auto) 0.6 x10^3/uL (0.0-1.1) Eosinophils # (Auto) 0.1 x10^3/uL (0.0-0.7) Basophils # (Auto) 0.1 x10^3/uL (0.0-0.2) Platelet Estimate Increased (ADEQUATE) Polychromasia Slight Hypochromasia Marked Poikilocytosis Mod Anisocytosis Mod Microcytosis Marked Spherocytes Few Target Cells Occ Tear Drop Cells Occ Ovalocytes Mod Schistocytes Occ Iron Level 64 ug/dL (50-170) Total Iron Binding Capacity 422 ug/dL (250-450) Iron Saturation 15 % (15-34) Ferritin 1 ng/mL (8-252) Vitamin B12 Level 262 pg/mL (247-911) Thyroid Stimulating Hormone (TSH) 3.961 uIU/mL (0.358-3.74) Urine Collection Type Unknown Urine Color Yellow Urine Clarity Clear Urine pH 5.5 (<5.0-8.0) Urine Specific [place] <=1.005 (1.000-1.030) Urine Protein Negative mg/dL (NEG-TRACE) Urine Glucose (UA) Negative mg/dL (NEG) Urine Ketones (Stick) Negative mg/dL (NEG) Urine Blood Negative (NEG) Urine Nitrite Negative (NEG) Urine Bilirubin Negative (NEG) Urine Urobilinogen Dipstick 0.2 mg/dL (0.2 mg/dL) Urine Leukocyte Esterase Negative (NEG) Urine RBC 0 /HPF (0-2) Urine WBC Occ /HPF (0-4) Urine Squamous Epithelial Cells Mod /LPF Urine Bacteria Few /HPF (0-FEW) Test 03/08/20 06:20 Sodium Level 143 mmol/L (136-145) Potassium Level 4.0 mmol/L (3.5-5.1) Chloride Level 108 mmol/L (98-107) Carbon Dioxide Level 24 mmol/L (21-32) Anion Gap 11 (6-14) Blood Urea Nitrogen 7 mg/dL (7-20) Creatinine 1.1 mg/dL (0.6-1.0) Estimated GFR (Cockcroft-Gault) 64.7 BUN/Creatinine Ratio 6 (6-20) Glucose Level 84 mg/dL (70-99) Calcium Level 8.6 mg/dL (8.5-10.1) Total Bilirubin 0.2 mg/dL (0.2-1.0) Aspartate Amino Transf (AST/SGOT) 13 U/L (15-37) Alanine Aminotransferase (ALT/SGPT) 18 U/L (14-59) Alkaline Phosphatase 43 U/L (46-116) Total Protein 7.3 g/dL (6.4-8.2) Albumin 3.2 g/dL (3.4-5.0) Albumin/Globulin Ratio 0.8 (1.0-1.7) Laboratory Tests Test 03/07/20 21:12 03/08/20 06:20 Urine Collection Type Unknown Urine Color Yellow Urine Clarity Clear Urine pH 5.5 (<5.0-8.0) Urine Specific [place] <=1.005 (1.000-1.030) Urine Protein Negative mg/dL (NEG-TRACE) Urine Glucose (UA) Negative mg/dL (NEG) Urine Ketones (Stick) Negative mg/dL (NEG) Urine Blood Negative (NEG) Urine Nitrite Negative (NEG) Urine Bilirubin Negative (NEG) Urine Urobilinogen Dipstick 0.2 mg/dL (0.2 mg/dL) Urine Leukocyte Esterase Negative (NEG) Urine RBC 0 /HPF (0-2) Urine WBC Occ /HPF (0-4) Urine Squamous Epithelial Cells Mod /LPF Urine Bacteria Few /HPF (0-FEW) Sodium Level 143 mmol/L (136-145) Potassium Level 4.0 mmol/L (3.5-5.1) Chloride Level 108 mmol/L (98-107) Carbon Dioxide Level 24 mmol/L (21-32) Anion Gap 11 (6-14) Blood Urea Nitrogen 7 mg/dL (7-20) Creatinine 1.1 mg/dL (0.6-1.0) Estimated GFR (Cockcroft-Gault) 64.7 BUN/Creatinine Ratio 6 (6-20) Glucose Level 84 mg/dL (70-99) Calcium Level 8.6 mg/dL (8.5-10.1) Total Bilirubin 0.2 mg/dL (0.2-1.0) Aspartate Amino Transf (AST/SGOT) 13 U/L (15-37) Alanine Aminotransferase (ALT/SGPT) 18 U/L (14-59) Alkaline Phosphatase 43 U/L (46-116) Total Protein 7.3 g/dL (6.4-8.2) Albumin 3.2 g/dL (3.4-5.0) Albumin/Globulin Ratio 0.8 (1.0-1.7) Medications Current Medications Sodium Chloride 1,000 ml @ 1,000 mls/hr Q1H IV Last administered on 03/07/20at 00:35; Start 03/06/20 at 23:45; Stop 03/07/20 at 00:44; Status DC Ondansetron HCl (Zofran) 4 mg 1X ONCE IVP Last administered on 03/07/20at 00:35; Start 03/06/20 at 23:45; Stop 03/06/20 at 23:46; Status DC Morphine Sulfate (Morphine Sulfate) 4 mg 1X ONCE IV Last administered on 03/07/20at 00:36; Start 03/06/20 at 23:45; Stop 03/06/20 at 23:46; Status DC Pantoprazole Sodium (PROTONIX VIAL for IV PUSH) 40 mg 1X ONCE IVP Last administered on 03/07/20at 00:36; Start 03/06/20 at 23:45; Stop 03/06/20 at 23:46; Status DC Iohexol (Omnipaque 300 Mg/ml) 75 ml 1X ONCE IV Last administered on 03/07/20at 01:52; Start 03/07/20 at 01:30; Stop 03/07/20 at 01:31; Status DC Info (CONTRAST GIVEN -- Rx MONITORING) 1 each PRN DAILY PRN MC SEE COMMENTS; Start 03/07/20 at 01:30; Stop 03/09/20 at 01:29 Ondansetron HCl (Zofran) 4 mg PRN Q8HRS PRN IV NAUSEA/VOMITING; Start 03/07/20 at 02:15; Stop 03/08/20 at 02:14; Status DC Morphine Sulfate (Morphine Sulfate) 4 mg PRN Q2HR PRN IV PAIN Last administered on 03/07/20at 21:11; Start 03/07/20 at 02:15; Stop 03/08/20 at 02:14; Status DC Sodium Chloride 1,000 ml @ 0 mls/hr Q0M IV ; Start 03/07/20 at 02:15; Stop 03/08/20 at 02:14; Status DC Pantoprazole Sodium (PROTONIX VIAL for IV PUSH) 40 mg DAILYAC IVP Last adm inistered on 03/07/20at 10:05; Start 03/07/20 at 09:00; Stop 03/07/20 at 10:32; Status DC Albuterol Sulfate (Ventolin Neb Soln) 2.5 mg PRN Q6HRS PRN INH SHORTNESS OF BREATH; Start 03/07/20 at 08:30; Status Cancel Non-Formulary Medication (Albuterol Sulfate (Albuterol Sulfate Conc Neb Soln)) 1 vial Q6HRS NEB ; Start 03/07/20 at 12:00; Stop 03/07/20 at 08:30; Status DC Prochlorperazine Maleate (Compazine) 10 mg PRN TID PRN PO NAUSEA/VOMITING; Start 03/07/20 at 08:30 Albuterol Sulfate (Ventolin Neb Soln) 2.5 mg Q6HRS INH ; Start 03/07/20 at 12:00; Stop 03/07/20 at 18:38; Status DC Sodium Chloride (Normal Saline Flush) 3 ml QSHIFT PRN IV AFTER MEDS AND BLOOD DRAWS; Start 03/07/20 at 08:30 Sodium Chloride 1,000 ml @ 125 mls/hr Q8H IV Last administered on 03/08/20at 04:40; Start 03/07/20 at 08:30 Ondansetron HCl (Zofran) 4 mg PRN Q4HRS PRN IV NAUSEA/VOMITING; Start 03/07/20 at 08:30 Acetaminophen (Tylenol) 650 mg PRN Q4HRS PRN PO TEMP OVER 100.4F OR MILD PAIN; Start 03/07/20 at 08:30 Acetaminophen (Tylenol Supp) 650 mg PRN Q4HRS PRN IA TEMP OVER 100.4F OR MILD PAIN; Start 03/07/20 at 08:30 Sodium Monofluorophosphate (Fleet Adult) 133 ml PRN DAILY PRN IA CONSTIPATION; Start 03/07/20 at 08:30 Docusate Sodium (Colace) 100 mg PRN BID PRN PO HARD STOOLS; Start 03/07/20 at 08:30 Albuterol Sulfate (Ventolin Neb Soln) 2.5 mg PRN Q4HRS PRN NEB SHORTNESS OF BREATH; Start 03/07/20 at 08:30 Guaifenesin (Robitussin) 200 mg PRN Q4HRS PRN PO COUGH; Start 03/07/20 at 08:30 Lorazepam (Ativan) 0.5 mg PRN Q4HRS PRN PO ANXIETY / AGITATION; Start 03/07/20 at 08:30 Iron Sucrose 200 mg/Sodium Chloride 110 ml @ 55 mls/hr 1X ONCE IV Last administered on 03/07/20at 10:05; Start 03/07/20 at 11:00; Stop 03/07/20 at 12:59; Status DC Pantoprazole Sodium (Protonix) 40 mg DAILYAC PO Last administered on 03/08/20at 05:29; Start 03/08/20 at 07:30 Cyanocobalamin (Vitamin B-12) 1,000 mcg DAILY IM ; Start 03/08/20 at 09:00 Albuterol Sulfate (Ventolin Neb Soln) 2.5 mg PRN Q6HRS PRN INH WHEEZING; Start 03/07/20 at 18:37 Active Scripts Active Diclofenac Sodium 50 Mg Tablet. 1 Tab PO BID PRN Tramadol Hcl 50 Mg Tablet 50 Mg PO Q6HRS PRN Diclofenac Sodium 50 Mg Tablet. 1 Tab PO BID PRN Diflucan (Fluconazole) 150 Mg Tablet 1 Tab PO ONCE Zofran (Ondansetron Hcl) 4 Mg Tablet 1 Tab PO PRN Q6-8HRS Zithromax (Azithromycin) 500 Mg Tablet 1 Tab PO DAILY [place] 5-325 Tablet (Acetaminophen/Hydrocodone Bitart) 1 Each Tablet 1 Tab PO PRN Q6HRS PRN Naprosyn (Naproxen) 500 Mg Tablet 1 Tab PO BID Hydrochlorothiazide Tablet (Hydrochlorothiazide) 12.5 Mg Tablet 12.5 Mg PO DAILY 5 Days Prednisone 50 Mg Tablet 1 Tab PO DAILY Tessalon Perle (Benzonatate) 100 Mg Capsule 1 Cap PO TID Compazine (Prochlorperazine Maleate) 10 Mg Tablet 10 Mg PO TID PRN Proventil Hfa Inhaler (Albuterol Sulfate) 6.7 Gm Hfa.aer.ad 1 Puff IH PRN Q4HRS PRN Zofran Odt (Ondansetron) 4 Mg Tab.rapdis 1 Tab SL Q8HRS Tamiflu (Oseltamivir Phosphate) 75 Mg Capsule 1 Cap PO BID Hydrocodone-Apap 5-325 (Hydrocodone Bit/Acetaminophen) 1 Each Tablet 1 Tab PO PRN Q6HRS PRN Be careful as this medication may cause you to be drowsy or tired. Do not drive on this medication. Prednisone 50 Mg Tablet 50 Mg PO DAILY Amoxicillin 875 Mg Tablet 875 Mg PO BID Tessalon Perle (Benzonatate) 100 Mg Capsule 1 Cap PO TID Lidocaine Hcl Viscous (Lidocaine Hcl) 20 Mg/1 Ml Solution 5 Ml PO TID PRN Reported Albuterol Sulfate Conc Neb Soln (Albuterol Sulfate) 2.5 Mg/0.5 Ml Vial.neb 1 Vial NEB Q6HRS Proair Hfa Inhaler (Albuterol Sulfate) 8.5 Gm Hfa.aer.ad 1 Puff INH PRN Q6HRS PRN Vitals/I & O Vital Sign - Last 24 Hours 03/07/20 03/07/20 03/07/20 03/07/20 11:00 15:00 19:00 20:00 Temp 97.9 97.8 98.8 97.9 97.8 98.8 Pulse 75 70 77 Resp 16 18 22 B/P (MAP) 113/61 (78) 123/60 (81) 101/68 (79) Pulse Ox 100 100 100 O2 Delivery Room Air Room Air Room Air 03/07/20 03/07/20 03/07/20 03/08/20 21:11 21:41 23:00 03:00 Temp 98.2 98.1 98.2 98.1 Pulse 67 75 Resp 18 18 16 16 B/P (MAP) 116/60 (78) 127/71 (89) Pulse Ox 100 100 100 100 O2 Delivery Room Air 03/08/20 07:00 Temp 98.5 98.5 Pulse 72 Resp 17 B/P (MAP) 128/73 (91) Pulse Ox 100 O2 Delivery Room Air Intake and Output 03/07/20 03/07/20 03/08/20 15:00 23:00 07:00 Intake Total 120 ml Output Total 400 ml Balance -280 ml Justicifation of Admission Dx: Justifications for Admission: Justification of Admission Dx: No ALBA CACERES MD Mar 08, 2020 08:18
[2020-03-08] MEDS ORDERED: CYANOCOBALAMIN (VITAMIN B-12) 1,000 MCG/ML VIAL. IM SCH (09:00)
--- NOTE | 2020-03-08 09:31 | PDOC ---
Date of Service: DATE: 03/08/20 TIME: 09:29 Subjective: Subjective: Tired. Eating okay, no bleeding still. Shows me vitamin gummies - contain B12, no iron - says she has iron pills at home too. Objective: Vital Signs: Vital Signs Date Time Temp Pulse Resp B/P (MAP) Pulse Ox O2 Delivery O2 Flow Rate FiO2 03/08/20 07:00 98.5 72 17 128/73 (91) 100 Room Air 98.5 Labs: Laboratory Tests Test 03/07/20 21:12 03/08/20 06:20 Urine Collection Type Unknown Urine Color Yellow Urine Clarity Clear Urine pH 5.5 Urine Specific [place] <=1.005 Urine Protein Negative mg/dL Urine Glucose (UA) Negative mg/dL Urine Ketones (Stick) Negative mg/dL Urine Blood Negative Urine Nitrite Negative Urine Bilirubin Negative Urine Urobilinogen Dipstick 0.2 mg/dL Urine Leukocyte Esterase Negative Urine RBC 0 /HPF Urine WBC Occ /HPF Urine Squamous Epithelial Cells Mod /LPF Urine Bacteria Few /HPF White Blood Count 5.8 x10^3/uL Red Blood Count 4.23 x10^6/uL Hemoglobin 7.5 g/dL Hematocrit 24.6 % Mean Corpuscular Volume 58 fL Mean Corpuscular Hemoglobin 18 pg Mean Corpuscular Hemoglobin Concent 31 g/dL Red Cell Distribution Width 21.6 % Platelet Count 536 x10^3/uL Neutrophils (%) (Auto) 44 % Lymphocytes (%) (Auto) 45 % Monocytes (%) (Auto) 7 % Eosinophils (%) (Auto) 2 % Basophils (%) (Auto) 2 % Neutrophils # (Auto) 2.6 x10^3/uL Lymphocytes # (Auto) 2.6 x10^3/uL Monocytes # (Auto) 0.4 x10^3/uL Eosinophils # (Auto) 0.1 x10^3/uL Basophils # (Auto) 0.1 x10^3/uL Sodium Level 143 mmol/L Potassium Level 4.0 mmol/L Chloride Level 108 mmol/L Carbon Dioxide Level 24 mmol/L Anion Gap 11 Blood Urea Nitrogen 7 mg/dL Creatinine 1.1 mg/dL Estimated GFR (Cockcroft-Gault) 64.7 BUN/Creatinine Ratio 6 Glucose Level 84 mg/dL Calcium Level 8.6 mg/dL Total Bilirubin 0.2 mg/dL Aspartate Amino Transf (AST/SGOT) 13 U/L Alanine Aminotransferase (ALT/SGPT) 18 U/L Alkaline Phosphatase 43 U/L Total Protein 7.3 g/dL Albumin 3.2 g/dL Albumin/Globulin Ratio 0.8 PE: GEN: NAD - sitting up in bed, breakfast tray 100% consumed LUNGS: CTAB HEART: RRR ABD: NABS, S/ND/NT NEURO/PSYCH: A & O 3 A/P: Epigastric pain, vomiting - resolved MADDY - stable, no bleeding -- DC per primary on iron and B12 - d/w pt and nurse. Follow-up for outpt EGD and colonoscopy, follow-up w/ [facility]ER. Justicifation of Admission Dx: Justifications for Admission: Justification of Admission Dx: Yes CAROLYN GILL Mar 08, 2020 09:31
--- NOTE | 2020-03-08 10:48 | CONS ---
DATE OF CONSULTATION: HISTORY OF PRESENT ILLNESS: This patient is a 44-year-old -Citizen Of [place] female who is a 2, para 2, has had 2 full-term normal deliveries. The patient is being admitted to the hospital because of anemia and has received blood transfusion as she is seen in consultation, mainly because of anemia and the patient has regular menstrual period, but does bleed for 1 week and also history of having passing clots at the time of the period. No other problems except abdominal pain at this time and she has had a CT scan of the abdomen and pelvis, which is unremarkable. PHYSICAL EXAMINATION: ABDOMEN: Feels soft. The patient is quite obese. PELVIC: Shows external genitalia being normal. No vaginal bleeding noted at this time. On bimanual exam, uterus feels normal size, no adnexal masses are palpable. No tenderness in the pelvic area. EXTREMITIES: No edema of feet. IMPRESSION: Dysfunctional uterine bleeding, menorrhagia, secondary anemia. RECOMMENDATION: She already had a D and C before for the bleeding problem, hence would recommend hysterectomy as an elective procedure. If she has persistent uterine bleeding, she is to call the office to make an appointment for a SECURITY SITE SUPERVISOR followup and further treatment. Thank you for giving me the opportunity to participate in the care and management of this patient. BANDAR FLAHERTY MD DR: DOMI/jennifer JOB#: [id number] / [id number]
[2020-03-08 11:00] VITALS: BP 119/84
--- NOTE | 2020-03-08 13:25 | NUR ---
SW following for discharge planning. Spoke with RN and reviewed chart. Pt remains on room and and diet is now regular. PT/OT evaluation states home, independent. Pt will likely discharge home today, 03/08 self-care. No anticipated SW needs on discharge. SW available as needed. Addendum: 03/09/20 at 1107 by KODAK HANCOCK SW Pt discharge home, self-care. No further SW needs at this time.
--- NOTE | 2020-03-08 14:10 | RAD ---
Ultrasound pelvis complete HISTORY: Right-sided pelvic pain and ovarian cyst on CT Sonographic examination of pelvis was performed by transabdominal technique and multiple static image s were obtained. The uterus measures 2.5 x 7.5 x 6.6 cm. There are multiple fibroids including a fibroid in the left b nikko to lower uterine segment that measures 4.3 x 4.7 x 3.2 cm. The endometrium measures 1.7 mm. The right ovary appears normal with normal blood flow and measures 3.0 x 2.5 x 3.3 cm. There is a dom inant follicle measures 2.1 x 1.6 x 1.8 cm. The left ovary appears normal with normal blood flow measures 2.0 x 2.0 x 1.2 cm. There is no free fluid in the pelvis. IMPRESSION: Fibroid uterus. This interpretation assumes the patient is not . Electronically signed by: Asaf Jaramillo III, MD (03/08/2020 2:08 PM) [facility]
[2020-03-08 15:00] VITALS: BP 132/72
[2020-03-08] MEDS ORDERED: FERR325T14 PO (15:35)
[2020-03-08] MEDS ORDERED: PANT40TA77 PO (15:35)
--- NOTE | 2020-03-08 16:00 | NUR ---
Discharge Note: BABATUNDE STEVENS ZANONI Discharge instructions and discharge home medications reviewed with Patient and a copy given. All questions have been answered and understanding verbalized. The following instructions and handouts were given: discharge instructions, new prescriptions, education and follow up recommendations. Discontinued lines and drains: Peripheral IV discontinued intact. Patient discharged to Home or Self Care with Family Member via Ambulated off unit by this RN.
--- NOTE | 2020-03-08 17:00 | PDOC3 ---
Discharge Summary Date of Admission: Mar 07, 2020 Date of Discharge: Mar 08, 2020 Follow-Up: 3-5 days Admitting Diagnosis comment: Chief Complaint Chief Complaint HOSPITAL DISCHARGE SUMMARY========[facility] DATE OF ADMIT 03-07-20 DATE OF DISCHARGE 03-08-20 COMPLICATIONS, NONE, PROGNOSIS ,, GOOD WITH FOLLOW UP CONSULTATIONS,, GI AND [employer] [employer] PROCEDURES PELVIS SONO, TRANSFUSION PRBC'S, TELE, CT ABDOMEN /PELVIS D/C CONDITION === GOOD FOLLOW UP [employer] [employer] 2-5 WEEKS,, GI SOON DIRECTED FOR ENDOSCOPY D/C ALLAN SEE MAR RETURN WITH FEVER, HEAVY BLEEDING, DIZZINESS, CHEST PAIN, RECTAL BLEEDING, VOMITING DIET REGULAR VTE Prophylaxis Ordered VTE Prophylaxis Devices: No VTE Pharmacological Prophylaxi: Contraindicated DISCHARGE DX Assessment/Plan IMPRESSION 1. Profound acute ON CHRONIC microcytic anemia, suspect low iron stores, has had micro indices since 2015 GI CONSULT MAY benefit from endoscopy, FE PANEL SERIAL H/H iv iron ferritin level Needs [employer] evaluation and outpatient scopes DIRECTED LUIS 2. ABDOMINAL PAIN, with vomiting, possible PUD prn iv zofran PO protonix GI OK WITH D/C TODAY 03-08 3. Morbid obesity wt loss need discussed 4. asthma hx con home meds 5. .5 cm right ovary functional cyst ASYMPTOMATIC 6. chronic low back pain avoid NSAIDS pt/ot 7. ACUTE RENAL INJURY FROM NSAID USE AND hypovolemia, emesis iv fluid support 8. DVT PROPHYLAXIS no lovenox due to possible PUB SCD'S EARLY AMBULATION 9. [employer] CONSULT, DR MENDENHALL 03-08 NOTED 10. Menorrhagia WITH FIBROID UTERUS, CONTRIBUTOR TO ANEMIA Justifications for Admission Justifications for Admission History of Present Illness History of Present Illness Identification/Chief Complaint Chief Complaint ABDOMINAL PAIN AND VOMITING, RESOLVED History of Present Illness History of Present Illness 44 year old female with past medical history of anemia, asthma, obesity presents emergency department complaint of new onset of midepigastric abdominal pain and vomiting. Patient states that approximate 1 hour ago while lying in bed she had sudden onset of epigastric pain followed by 3 episodes of nonbloody nonbilious vomiting. Denies any diarrhea. Denies any fever, chills, chest pain or shortness of breath. She has a history of NSAID USE chronically, with places her at risk of UGI BLEEDING has had microcytic anemia since 2016 on review of chart Past Medical History Pulmonary: Asthma Family History Family History: Hypertension Social History Smoke: No ALCOHOL: none Drugs: None Vitals Vitals Vital Signs Date Time Temp Pulse Resp B/P (MAP) Pulse Ox O2 Delivery O2 Flow Rate FiO2 03/08/20 07:00 98.5 72 17 128/73 (91) 100 Room Air 98.5 Physical Exam Physical Exam Physical Exam Constitutional: Well developed, well nourished, no acute distress, non-toxic appearance. [] HENT: Normocephalic, atraumatic, bilateral external ears normal, oropharynx moist, no oral exudates, nose normal. [] Eyes: PERRLA, EOMI, conjunctiva normal, no discharge. [] Neck: Normal range of motion, no tenderness, supple, no stridor. [] Cardiovascular:Heart rate regular rhythm, no murmur [] Lungs & Thorax: Bilateral breath sounds clear to auscultation [] Abdomen: Bowel sounds normal, soft, significant right upper quadrant tenderness with Nayak sign, no masses, no pulsatile masses. [] Skin: Warm, dry, no erythema, no rash. [] Back: No tenderness, no CVA tenderness. [] Extremities: No tenderness, no cyanosis, no clubbing, ROM intact, no edema. [] Neurologic: Alert and oriented X 3, normal motor function, normal sensory function, no focal deficits noted. [] Psychologic: Affect normal, judgment normal, mood normal. [] General: Alert, Oriented X3, Cooperative, No acute distress Lungs: Clear to auscultation Heart: RRR Breasts: Not examined Abdomen: Soft Rectal Exam: not examined PELVIC: Examination not indicated Extremities: No cyanosis Skin: No significant lesion Neuro: Normal speech, Cranial nerves 3-12 NL Psych/Mental Status: Mental status NL, Mood NL General: Alert, Oriented X3, Cooperative, No acute distress Heart: Regular rate, Normal S1, Normal S2, No murmurs Lungs: Clear Abdomen: Soft Extremities: No clubbing, No cyanosis Skin: No significant lesion Labs LABS Signed PATIENT: BABATUNDE STEVENS ACCOUNT: [id number] : 1975 LOCATION: [address] [place] [address] AGE: 44 SEX: F EXAM STATUS: ADM IN ORD. PHYSICIAN: ALBA CACERES MD REASON: pain/rt ovary cyst on CT SCAN PROCEDURE: PELVIS COMPLETE Ultrasound pelvis complete HISTORY: Right-sided pelvic pain and ovarian cyst on CT Sonographic examination of pelvis was performed by transabdominal technique and multiple static images were obtained. The uterus measures 2.5 x 7.5 x 6.6 cm. There are multiple fibroids including a fibroid in the left body to lower uterine segment that measures 4.3 x 4.7 x 3.2 cm. The endometrium measures 1.7 mm. The right ovary appears normal with normal blood flow and measures 3.0 x 2.5 x 3.3 cm. There is a dominant follicle measures 2.1 x 1.6 x 1.8 cm. The left ovary appears normal with normal blood flow measures 2.0 x 2.0 x 1.2 cm. There is no free fluid in the pelvis. IMPRESSION: Fibroid uterus. This interpretation assumes the patient is not . Electronically signed by: Mohsen Concepcion III, MD (03/08/2020 2:08 PM) [facility] DICTATED and SIGNED BY: MOHSEN CONCEPCION III, MD DATE: 03/08/20 [id number] 0 Right upper quadrant abdominal ultrasound History: Reason: RUQ PAIN/GALLBLADDER / Spl. Instructions: / History: Comparison: None. Technique: Transabdominal ultrasound images are obtained. Findings: Due to overlying bowel gas portions of the liver are obscured. The pancreas is nearly completely obscured. Liver is normal in echogenicity. Right hepatic lobe measures 15.7 cm. There is no gallbladder wall thickening or cholelithiasis or pericholecystic fluid. Common bile duct caliber is normal measuring 5 mm in diameter. The right kidney measures 10.2 cm in length. There is no hydronephrosis. IVC is unremarkable. IMPRESSION: No evidence of cholecystitis. Electronically signed by: Romero Yang MD (03/07/2020 12:19 AM) [facility] Brief Hospital Course Ms. Stevens is a 44 old [sex] who presented with [PROFOUND MICROCYTIC ANEMIA, VOMITING ] CONDITION AT DISCHARGE: Improved Discharge Medications Current Medications Sodium Chloride 1,000 ml @ 1,000 mls/hr Q1H IV Last administered on 03/07/20at 00:35; Start 03/06/20 at 23:45; Stop 03/07/20 at 00:44; Status DC Ondansetron HCl (Zofran) 4 mg 1X ONCE IVP Last administered on 03/07/20at 00:35; Start 03/06/20 at 23:45; Stop 03/06/20 at 23:46; Status DC Morphine Sulfate (Morphine Sulfate) 4 mg 1X ONCE IV Last administered on 03/07/20at 00:36; Start 03/06/20 at 23:45; Stop 03/06/20 at 23:46; Status DC Pantoprazole Sodium (PROTONIX VIAL for IV PUSH) 40 mg 1X ONCE IVP Last administered on 03/07/20at 00:36; Start 03/06/20 at 23:45; Stop 03/06/20 at 23:46; Status DC Iohexol (Omnipaque 300 Mg/ml) 75 ml 1X ONCE IV Last administered on 03/07/20at 01:52; Start 03/07/20 at 01:30; Stop 03/07/20 at 01:31; Status DC Info (CONTRAST GIVEN -- Rx MONITORING) 1 each PRN DAILY PRN MC SEE COMMENTS; Start 03/07/20 at 01:30; Stop 03/08/20 at 16:25; Status DC Ondansetron HCl (Zofran) 4 mg PRN Q8HRS PRN IV NAUSEA/VOMITING; Start 03/07/20 at 02:15; Stop 03/08/20 at 02:14; Status DC Morphine Sulfate (Morphine Sulfate) 4 mg PRN Q2HR PRN IV PAIN Last administered on 03/07/20at 21:11; Start 03/07/20 at 02:15; Stop 03/08/20 at 02:14; Status DC Sodium Chloride 1,000 ml @ 0 mls/hr Q0M IV ; Start 03/07/20 at 02:15; Stop 03/08/20 at 02:14; Status DC Pantoprazole Sodium (PROTONIX VIAL for IV PUSH) 40 mg DAILYAC IVP Last administered on 03/07/20at 10:05; Start 03/07/20 at 09:00; Stop 03/07/20 at 10:32; Status DC Albuterol Sulfate (Ventolin Neb Soln) 2.5 mg PRN Q6HRS PRN INH SHORTNESS OF BREATH; Start 03/07/20 at 08:30; Status Cancel Non-Formulary Medication (Albuterol Sulfate (Albuterol Sulfate Conc Neb Soln)) 1 vial Q6HRS NEB ; Start 03/07/20 at 12:00; Stop 03/07/20 at 08:30; Status DC Prochlorperazine Maleate (Compazine) 10 mg PRN TID PRN PO NAUSEA/VOMITING; Start 03/07/20 at 08:30; Stop 03/08/20 at 16:25; Status DC Albuterol Sulfate (Ventolin Neb Soln) 2.5 mg Q6HRS INH ; Start 03/07/20 at 12:00; Stop 03/07/20 at 18:38; Status DC Sodium Chloride (Normal Saline Flush) 3 ml QSHIFT PRN IV AFTER MEDS AND BLOOD DRAWS; Start 03/07/20 at 08:30; Stop 03/08/20 at 16:25; Status DC Sodium Chloride 1,000 ml @ 125 mls/hr Q8H IV Last administered on 03/08/20at 13:53; Start 03/07/20 at 08:30; Stop 03/08/20 at 16:25; Status DC Ondansetron HCl (Zofran) 4 mg PRN Q4HRS PRN IV NAUSEA/VOMITING; Start 03/07/20 at 08:30; Stop 03/08/20 at 16:25; Status DC Acetaminophen (Tylenol) 650 mg PRN Q4HRS PRN PO TEMP OVER 100.4F OR MILD PAIN; Start 03/07/20 at 08:30; Stop 03/08/20 at 16:25; Status DC Acetaminophen (Tylenol Supp) 650 mg PRN Q4HRS PRN WA TEMP OVER 100.4F OR MILD P AIN; Start 03/07/20 at 08:30; Stop 03/08/20 at 16:25; Status DC Sodium Monofluorophosphate (Fleet Adult) 133 ml PRN DAILY PRN WA CONSTIPATION; Start 03/07/20 at 08:30; Stop 03/08/20 at 16:25; Status DC Docusate Sodium (Colace) 100 mg PRN BID PRN PO HARD STOOLS; Start 03/07/20 at 08:30; Stop 03/08/20 at 16:25; Status DC Albuterol Sulfate (Ventolin Neb Soln) 2.5 mg PRN Q4HRS PRN NEB SHORTNESS OF BREATH; Start 03/07/20 at 08:30; Stop 03/08/20 at 16:25; Status DC Guaifenesin (Robitussin) 200 mg PRN Q4HRS PRN PO COUGH; Start 03/07/20 at 08:30; Stop 03/08/20 at 16:25; Status DC Lorazepam (Ativan) 0.5 mg PRN Q4HRS PRN PO ANXIETY / AGITATION; Start 03/07/20 at 08:30; Stop 03/08/20 at 16:25; Status DC Iron Sucrose 200 mg/Sodium Chloride 110 ml @ 55 mls/hr 1X ONCE IV Last administered on 03/07/20at 10:05; Start 03/07/20 at 11:00; Stop 03/07/20 at 12:59; Status DC Pantoprazole Sodium (Protonix) 40 mg DAILYAC PO Last administered on 03/08/20at 05:29; Start 03/08/20 at 07:30; Stop 03/08/20 at 16:25; Status DC Cyanocobalamin (Vitamin B-12) 1,000 mcg DAILY IM Last administered on 03/08/20at 09:12; Start 03/08/20 at 09:00; Stop 03/08/20 at 16:25; Status DC Albuterol Sulfate (Ventolin Neb Soln) 2.5 mg PRN Q6HRS PRN INH WHEEZING; Start 03/07/20 at 18:37; Status Cancel Active Scripts Active Reported Pantoprazole Sodium (Pantoprazole Sodium) 40 Mg Tablet.dr 40 Mg PO DAILYAC Ferrous Sulfate 325 Mg Tablet 1 Tab PO DAILY Albuterol Sulfate Conc Neb Soln (Albuterol Sulfate) 2.5 Mg/0.5 Ml Vial.neb 1 Vial NEB Q6HRS Proair Hfa Inhaler (Albuterol Sulfate) 8.5 Gm Hfa.aer.ad 1 Puff INH PRN Q6HRS PRN Vital Signs Vital Signs Date Time Temp Pulse Resp B/P (MAP) Pulse Ox O2 Delivery O2 Flow Rate FiO2 1/27/21 15:00 97.8 79 18 132/72 (92) 100 Room Air 97.8 Labs Laboratory Tests Test 03/07/20 00:23 03/07/20 00:33 03/07/20 07:15 03/07/20 21:12 Sodium Level 138 mmol/L (136-145) Potassium Level 4.0 mmol/L (3.5-5.1) Chloride Level 103 mmol/L (98-107) Carbon Dioxide Level 25 mmol/L (21-32) Anion Gap 10 (6-14) Blood Urea Nitrogen 11 mg/dL (7-20) Creatinine 1.1 mg/dL (0.6-1.0) Estimated GFR (Cockcroft-Gault) 64.7 BUN/Creatinine Ratio 10 (6-20) Glucose Level 100 mg/dL (70-99) Calcium Level 9.0 mg/dL (8.5-10.1) Total Bilirubin 0.2 mg/dL (0.2-1.0) Aspartate Amino Transf (AST/SGOT) 12 U/L (15-37) Alanine Aminotransferase (ALT/SGPT) 20 U/L (14-59) Alkaline Phosphatase 47 U/L (46-116) Creatine Kinase 162 U/L (26-192) Total Protein 7.9 g/dL (6.4-8.2) Albumin 3.5 g/dL (3.4-5.0) Albumin/Globulin Ratio 0.8 (1.0-1.7) Lipase 85 U/L (73-393) Serum Test, Qualitative Negative (NEG) White Blood Count 6.4 x10^3/uL (4.0-11.0) 5.8 x10^3/uL (4.0-11.0) Red Blood Count 3.95 x10^6/uL (3.50-5.40) 4.14 x10^6/uL (3.50-5.40) Hemoglobin 6.6 g/dL (12.0-15.5) 7.3 g/dL (12.0-15.5) Hematocrit 21.8 % (36.0-47.0) 24.0 % (36.0-47.0) Mean Corpuscular Volume 55 fL (79-100) 57 fL (79-100) Mean Corpuscular Hemoglobin 17 pg (25-35) 18 pg (25-35) Mean Corpuscular Hemoglobin Concent 30 g/dL (31-37) 31 g/dL (31-37) Red Cell Distribution Width 20.1 % (11.5-14.5) 20.8 % (11.5-14.5) Platelet Count 580 x10^3/uL (140-400) 550 x10^3/uL (140-400) Neutrophils (%) (Auto) 55 % (31-73) Lymphocytes (%) (Auto) 32 % (24-48) Monocytes (%) (Auto) 10 % (0-9) Eosinophils (%) (Auto) 1 % (0-3) Basophils (%) (Auto) 2 % (0-3) Neutrophils # (Auto) 3.5 x10^3/uL (1.8-7.7) Lymphocytes # (Auto) 2.1 x10^3/uL (1.0-4.8) Monocytes # (Auto) 0.6 x10^3/uL (0.0-1.1) Eosinophils # (Auto) 0.1 x10^3/uL (0.0-0.7) Basophils # (Auto) 0.1 x10^3/uL (0.0-0.2) Platelet Estimate Increased (ADEQUATE) Polychromasia Slight Hypochromasia Marked Poikilocytosis Mod Anisocytosis Mod Microcytosis Marked Spherocytes Few Target Cells Occ Tear Drop Cells Occ Ovalocytes Mod Schistocytes Occ Iron Level 64 ug/dL (50-170) Total Iron Binding Capacity 422 ug/dL (250-450) Iron Saturation 15 % (15-34) Ferritin 1 ng/mL (8-252) Vitamin B12 Level 262 pg/mL (247-911) Thyroid Stimulating Hormone (TSH) 3.961 uIU/mL (0.358-3.74) Urine Collection Type Unknown Urine Color Yellow Urine Clarity Clear Urine pH 5.5 (<5.0-8.0) Urine Specific [place] <=1.005 (1.000-1.030) Urine Protein Negative mg/dL (NEG-TRACE) Urine Glucose (UA) Negative mg/dL (NEG) Urine Ketones (Stick) Negative mg/dL (NEG) Urine Blood Negative (NEG) Urine Nitrite Negative (NEG) Urine Bilirubin Negative (NEG) Urine Urobilinogen Dipstick 0.2 mg/dL (0.2 mg/dL) Urine Leukocyte Esterase Negative (NEG) Urine RBC 0 /HPF (0-2) Urine WBC Occ /HPF (0-4) Urine Squamous Epithelial Cells Mod /LPF Urine Bacteria Few /HPF (0-FEW) Test 03/08/20 06:20 White Blood Count 5.8 x10^3/uL (4.0-11.0) Red Blood Count 4.23 x10^6/uL (3.50-5.40) Hemoglobin 7.5 g/dL (12.0-15.5) Hematocrit 24.6 % (36.0-47.0) Mean Corpuscular Volume 58 fL (79-100) Mean Corpuscular Hemoglobin 18 pg (25-35) Mean Corpuscular Hemoglobin Concent 31 g/dL (31-37) Red Cell Distribution Width 21.6 % (11.5-14.5) Platelet Count 536 x10^3/uL (140-400) Neutrophils (%) (Auto) 44 % (31-73) Lymphocytes (%) (Auto) 45 % (24-48) Monocytes (%) (Auto) 7 % (0-9) Eosinophils (%) (Auto) 2 % (0-3) Basophils (%) (Auto) 2 % (0-3) Neutrophils # (Auto) 2.6 x10^3/uL (1.8-7.7) Lymphocytes # (Auto) 2.6 x10^3/uL (1.0-4.8) Monocytes # (Auto) 0.4 x10^3/uL (0.0-1.1) Eosinophils # (Auto) 0.1 x10^3/uL (0.0-0.7) Basophils # (Auto) 0.1 x10^3/uL (0.0-0.2) Sodium Level 143 mmol/L (136-145) Potassium Level 4.0 mmol/L (3.5-5.1) Chloride Level 108 mmol/L (98-107) Carbon Dioxide Level 24 mmol/L (21-32) Anion Gap 11 (6-14) Blood Urea Nitrogen 7 mg/dL (7-20) Creatinine 1.1 mg/dL (0.6-1.0) Estimated GFR (Cockcroft-Gault) 64.7 BUN/Creatinine Ratio 6 (6-20) Glucose Level 84 mg/dL (70-99) Calcium Level 8.6 mg/dL (8.5-10.1) Total Bilirubin 0.2 mg/dL (0.2-1.0) Aspartate Amino Transf (AST/SGOT) 13 U/L (15-37) Alanine Aminotransferase (ALT/SGPT) 18 U/L (14-59) Alkaline Phosphatase 43 U/L (46-116) Total Protein 7.3 g/dL (6.4-8.2) Albumin 3.2 g/dL (3.4-5.0) Albumin/Globulin Ratio 0.8 (1.0-1.7) Laboratory Tests Test 03/07/20 21:12 03/08/20 06:20 Urine Collection Type Unknown Urine Color Yellow Urine Clarity Clear Urine pH 5.5 (<5.0-8.0) Urine Specific [place] <=1.005 (1.000-1.030) Urine Protein Negative mg/dL (NEG-TRACE) Urine Glucose (UA) Negative mg/dL (NEG) Urine Ketones (Stick) Negative mg/dL (NEG) Urine Blood Negative (NEG) Urine Nitrite Negative (NEG) Urine Bilirubin Negative (NEG) Urine Urobilinogen Dipstick 0.2 mg/dL (0.2 mg/dL) Urine Leukocyte Esterase Negative (NEG) Urine RBC 0 /HPF (0-2) Urine WBC Occ /HPF (0-4) Urine Squamous Epithelial Cells Mod /LPF Urine Bacteria Few /HPF (0-FEW) White Blood Count 5.8 x10^3/uL (4.0-11.0) Red Blood Count 4.23 x10^6/uL (3.50-5.40) Hemoglobin 7.5 g/dL (12.0-15.5) Hematocrit 24.6 % (36.0-47.0) Mean Corpuscular Volume 58 fL (79-100) Mean Corpuscular Hemoglobin 18 pg (25-35) Mean Corpuscular Hemoglobin Concent 31 g/dL (31-37) Red Cell Distribution Width 21.6 % (11.5-14.5) Platelet Count 536 x10^3/uL (140-400) Neutrophils (%) (Auto) 44 % (31-73) Lymphocytes (%) (Auto) 45 % (24-48) Monocytes (%) (Auto) 7 % (0-9) Eosinophils (%) (Auto) 2 % (0-3) Basophils (%) (Auto) 2 % (0-3) Neutrophils # (Auto) 2.6 x10^3/uL (1.8-7.7) Lymphocytes # (Auto) 2.6 x10^3/uL (1.0-4.8) Monocytes # (Auto) 0.4 x10^3/uL (0.0-1.1) Eosinophils # (Auto) 0.1 x10^3/uL (0.0-0.7) Basophils # (Auto) 0.1 x10^3/uL (0.0-0.2) Sodium Level 143 mmol/L (136-145) Potassium Level 4.0 mmol/L (3.5-5.1) Chloride Level 108 mmol/L (98-107) Carbon Dioxide Level 24 mmol/L (21-32) Anion Gap 11 (6-14) Blood Urea Nitrogen 7 mg/dL (7-20) Creatinine 1.1 mg/dL (0.6-1.0) Estimated GFR (Cockcroft-Gault) 64.7 BUN/Creatinine Ratio 6 (6-20) Glucose Level 84 mg/dL (70-99) Calcium Level 8.6 mg/dL (8.5-10.1) Total Bilirubin 0.2 mg/dL (0.2-1.0) Aspartate Amino Transf (AST/SGOT) 13 U/L (15-37) Alanine Aminotransferase (ALT/SGPT) 18 U/L (14-59) Alkaline Phosphatase 43 U/L (46-116) Total Protein 7.3 g/dL (6.4-8.2) Albumin 3.2 g/dL (3.4-5.0) Albumin/Globulin Ratio 0.8 (1.0-1.7) Allergies Allergies Coded Allergies Type Severity Reaction Last Updated Verified loratadine Allergy Intermediate swelling 07/31/15 Yes Disposition/Orders: D/C to Home Justicifation of Admission Dx: Justifications for Admission: Justification of Admission Dx: Yes ALBA CACERES MD Mar 08, 2020 17:00
--- NOTE | 2020-03-08 17:01 | DISCH ---
DISCHARGE INSTRUCTIONS Condition on Discharge Condition on Discharge: Stable Activity After Discharge Activity Instructions for Disc: Resume previous activity, Activity as devora ated, Progressive ambulation, Walk in house Driving Instructions after Dis: Do not drive today Diet after Discharge Diet after Discharge: Regular Liquid Texture: Thin Liquid Checks after Discharge Checks after discharge: Check blood press - daily Contacting the DR[facility]as[facility] after DC Call your doctor for: If your condition worsens Follow-Up Follow up with: HARLEY NUGENT SOON DIRECTED Follow Up With: Primary Care Physician in 1 week. Treatment/Equipment after DC Adaptive Equipment Issued: None ALBA CACERES MD Mar 08, 2020 17:01
== END 2020-03-08 16:00 | disposition home or self-care (01) | DRG 384 ==
LOC: ER 23:02 → 5 NORTH 03-07 02:08 → OBSVTOIN 03-08 10:22
PROVIDERS: ADMIT Internal Medicine; ATTEND Internal Medicine
PROC: 30233N1 Transfusion of Nonautologous Red Blood Cells into Peripheral Vein, Percutaneous Approach (ICD-10-PCS; principal; 2020-03-07)
DX: K27.9 Peptic ulcer, site unspecified, unspecified as acute or chronic, without hemorrhage or perforation (principal); Z68.41 Body mass index [BMI] 40.0-44.9, adult; N17.9 Acute kidney failure, unspecified; N92.0 Excessive and frequent menstruation with regular cycle; N93.8 Other specified abnormal uterine and vaginal bleeding; D50.9 Iron deficiency anemia, unspecified; D25.9 Leiomyoma of uterus, unspecified; G89.29 Other chronic pain; M54.5 Low back pain; E86.1 Hypovolemia; N83.201 Unspecified ovarian cyst, right side; T39.395A Adverse effect of other nonsteroidal anti-inflammatory drugs [NSAID], initial encounter; J45.909 Unspecified asthma, uncomplicated; E66.01 Morbid (severe) obesity due to excess calories; Z98.51 Tubal ligation status; Z82.49 Family history of ischemic heart disease and other diseases of the circulatory system; Z71.3 Dietary counseling and surveillance; Z79.899 Other long term (current) drug therapy; Z88.8 Allergy status to other drugs, medicaments and biological substances; Z83.49 Family history of other endocrine, nutritional and metabolic diseases; Y92.89 Other specified places as the place of occurrence of the external cause; Z79.1 Long term (current) use of non-steroidal anti-inflammatories (NSAID)
CPT/HCPCS: 36415; 36430; 74177; 76705; 76856; 80053; 81001; 82550; 82607; 82728; 83540; 83550; 83690; 84443; 84703; 85025; 85027; 86850; 86900; 86901; 86920; 93005; 96361; 96374; 96375; C9113; G0378; G0379; J1756; J2270; J2405; J3420; J7030; P9016; Q9967; 99285-25

== ENCOUNTER 2020-03-13 21:17 | Emergency (ER) | payer SELFPAY ==
[~2020-03-13] VITALS: Ht 175.3 cm; Wt 122.0 kg
[~2020-03-13 21:17] MED LIST changes: +FERR325T14 PO; +PANT40TA77 PO
[2020-03-13] MEDS ORDERED: LIDO:MAALOX 1:1 20 ML SINGLE DOSE. SWSW ONE (22:00)
[2020-03-13] MEDS ORDERED: ONDANSETRON PF 4 MG/2 ML VIAL. IVP ONE (22:00)
[2020-03-13] MEDS ORDERED: IV NORMAL SALINE 1000ML BAG 1,000 ML IV ONE (22:00)
[2020-03-13 22:04] LABS: BASO # 0.1 x10^3/uL (0.0-0.2); BASO % 1 % (0-3); EOS # 0.1 x10^3/uL (0.0-0.7); EOS % 1 % (0-3); HEMATOCRIT 26.5 % (36.0-47.0); HEMOGLOBIN 8.1 g/dL (12.0-15.5); LYMPH # 2.9 x10^3/uL (1.0-4.8); LYMPH % 41 % (24-48); MEAN CORPUSCULAR HEMOGLOBIN 18 pg (25-35); MEAN CORPUSCULAR HGB CONC 31 g/dL (31-37); MEAN CORPUSCULAR VOLUME 60 fL (79-100); MONO # 0.7 x10^3/uL (0.0-1.1); MONO % 10 % (0-9); NEUT # 3.4 x10^3/uL (1.8-7.7); NEUT % 47 % (31-73); PLATELET COUNT 368 x10^3/uL (140-400); RED BLOOD COUNT 4.39 x10^6/uL (3.50-5.40); RED CELL DISTRIBUTION WIDTH 22.4 % (11.5-14.5); WHITE BLOOD COUNT 7.2 x10^3/uL (4.0-11.0)
[2020-03-13 22:18] LABS: CALCIUM 8.5 mg/dL (8.5-10.1); CREATININE 1.2 mg/dL (0.6-1.0); GFR 58.5; POTASSIUM 3.6 mmol/L (3.5-5.1)
[2020-03-13 22:20] LABS: PLT ESTIMATE ADEQUATE (ADEQUATE); POLYCHROMASIA SLIGHT
[2020-03-13 22:21] LABS: ANISOCYTOSIS MOD; HYPOCHROMIA MOD; MICROCYTOSIS MOD; OVALOCYTES FEW; POIKILOCYTOSIS MOD; SCHISTOCYTES OCC; TEAR DROP CELLS FEW
[2020-03-13 22:22] LABS: ALBUMIN 3.5 g/dL (3.4-5.0); ALBUMIN/GLOBULIN RATIO 0.8 (1.0-1.7); TOTAL BILIRUBIN 0.3 mg/dL (0.2-1.0); TOTAL PROTEIN 7.8 g/dL (6.4-8.2)
--- NOTE | 2020-03-13 22:59 | PHYS DOC ---
Past Medical History Past Medical History: Anemia, Asthma Additional Past Medical Histor: Chronic low back pain Past Surgical History: Tubal ligation, Other Additional Past Surgical Histo: D&C, wisdom teeth Smoking Status: Never Smoker Alcohol Use: None Drug Use: None General Adult EDM: Chief Complaint: GI PROBLEM HPI: HPI: Patient is a 44 year old female presents emergency department complaining of sudden onset upper abdominal pain while eating at [employer]. Patient states she is nauseated, has not vomited, denies chest pain, denies shortness of breath, denies diarrhea. Denies radiation of this pain. Patient states she is worried as she was here for similar pain a week ago and was admitted for a low hemoglobin. Patient denies any other physical complaints or physical concerns. Review of Systems: Review of Systems: 14 body systems of review of systems have been reviewed. See HPI for pertinent positives and negative responses, otherwise all other systems are negative, nonpertinent or noncontributory. Heart Score: Risk Factors: Risk Factors: DM, Current or recent (<one month) smoker, HTN, HLP, family history of CAD, obesity. Risk Scores: Score 0 - 3: 2.5% MACE over next 6 weeks - Discharge Home Score 4 - 6: 20.3% MACE over next 6 weeks - Admit for Clinical Observation Score 7 - 10: 72.7% MACE over next 6 weeks - Early Invasive Strategies Current Medications: Current Medications Medications (Trade) Dose Ordered Sig/Isa Start Time Stop Time Status Last Admin Dose Admin Multi-Ingredient Mouthwash/Gargle (Gi Cocktail) 20 ml 1X ONCE 03/13/20 22:00 03/13/20 22:01 DC 03/13/20 22:01 20 ML Ondansetron HCl (Zofran) 4 mg 1X ONCE 03/13/20 22:00 03/13/20 22:01 DC 03/13/20 22:02 4 MG Sodium Chloride 1,000 ml @ 1,000 mls/hr 1X ONCE 03/13/20 22:00 03/13/20 22:59 03/13/20 22:03 1,000 MLS/HR Allergies: Allergies: Allergies Coded Allergies Type Severity Reaction Last Updated Verified loratadine Allergy Intermediate swelling 07/31/15 Yes Physical Exam: PE: Constitutional: Well developed, well nourished, no acute distress, non-toxic appearance. HENT: Normocephalic, atraumatic, bilateral external ears normal, oropharynx moist, no oral exudates, nose normal. Eyes: PERRLA, EOMI, conjunctiva normal, no discharge. Neck: Normal range of motion, no tenderness, supple, no stridor. Cardiovascular:Heart rate regular rhythm, no murmur Lungs & Thorax: Bilateral breath sounds clear to auscultation Abdomen: Bowel sounds normal, soft, tenderness at epigastric area, no masses, no pulsatile masses. Skin: Warm, dry, no erythema, no rash. Back: No tenderness, no CVA tenderness. Extremities: No tenderness, no cyanosis, no clubbing, ROM intact, no edema. Neurologic: Alert and oriented X 3, normal motor function, normal sensory f unction, no focal deficits noted. Psychologic: Affect normal, judgement normal, mood normal. Current Patient Data: Labs: Laboratory Tests Test 03/13/20 21:32 03/13/20 21:55 POC Urine HCG, Qualitative Hcg negative (Negative) White Blood Count 7.2 x10^3/uL (4.0-11.0) Red Blood Count 4.39 x10^6/uL (3.50-5.40) Hemoglobin 8.1 g/dL (12.0-15.5) L Hematocrit 26.5 % (36.0-47.0) L Mean Corpuscular Volume 60 fL (79-100) L Mean Corpuscular Hemoglobin 18 pg (25-35) L Mean Corpuscular Hemoglobin Concent 31 g/dL (31-37) Red Cell Distribution Width 22.4 % (11.5-14.5) H Platelet Count 368 x10^3/uL (140-400) Neutrophils (%) (Auto) 47 % (31-73) Lymphocytes (%) (Auto) 41 % (24-48) Monocytes (%) (Auto) 10 % (0-9) H Eosinophils (%) (Auto) 1 % (0-3) Basophils (%) (Auto) 1 % (0-3) Neutrophils # (Auto) 3.4 x10^3/uL (1.8-7.7) Lymphocytes # (Auto) 2.9 x10^3/uL (1.0-4.8) Monocytes # (Auto) 0.7 x10^3/uL (0.0-1.1) Eosinophils # (Auto) 0.1 x10^3/uL (0.0-0.7) Basophils # (Auto) 0.1 x10^3/uL (0.0-0.2) Platelet Estimate Adequate (ADEQUATE) Polychromasia Slight Hypochromasia Mod Poikilocytosis Mod Anisocytosis Mod Microcytosis Mod Tear Drop Cells Few Ovalocytes Few Schistocytes Occ Sodium Level 140 mmol/L (136-145) Potassium Level 3.6 mmol/L (3.5-5.1) Chloride Level 104 mmol/L (98-107) Carbon Dioxide Level 25 mmol/L (21-32) Anion Gap 11 (6-14) Blood Urea Nitrogen 11 mg/dL (7-20) Creatinine 1.2 mg/dL (0.6-1.0) H Estimated GFR (Cockcroft-Gault) 58.5 BUN/Creatinine Ratio 9 (6-20) Glucose Level 99 mg/dL (70-99) Calcium Level 8.5 mg/dL (8.5-10.1) Total Bilirubin 0.3 mg/dL (0.2-1.0) Aspartate Amino Transferase (AST) 12 U/L (15-37) L Alanine Aminotransferase (ALT) 21 U/L (14-59) Alkaline Phosphatase 48 U/L (46-116) Troponin I Quantitative < 0.017 ng/mL (0.000-0.055) Total Protein 7.8 g/dL (6.4-8.2) Albumin 3.5 g/dL (3.4-5.0) Albumin/Globulin Ratio 0.8 (1.0-1.7) L Lipase 126 U/L (73-393) Laboratory Tests 03/13/20 21:55 Laboratory Tests 03/13/20 21:55 Vital Signs: Vital Signs Date Time Temp Pulse Resp B/P (MAP) Pulse Ox O2 Delivery O2 Flow Rate FiO2 03/13/20 21:30 98.3 81 20 142/68 (92) 100 Room Air 98.3 EKG: EKG: EKG performed at 2223 by ED nursing staff, shows a normal sinus rhythm without ectopy heart rate 61 bpm, LA interval 0.202, QTc interval 0.441, no acute STEMI, no ACS, no acute ischemia appreciated, EKG interpreted by ED attending physician Dr. Borrero. Radiology/Procedures: Radiology/Procedures: [] Course & Med Decision Making: Course & Med Decision Making Pertinent Labs and Imaging studies reviewed. (See chart for details) 44-year-old female, vital signs stable, presents emergency department epigastric pain after eating at [employer]. Patient's physical examination consistent with gastric reflux pain versus esophagitis. IV normal saline, IV Zofran 4 mg, GI cocktail, serum labs, EKG, cardiac enzymes. Patient's lab work unremarkable, patient's hemoglobin up to 8.1 from discharge hemoglobin of 7.6. Patient's pain resolved with GI cocktail. This is most likely an esophagitis versus a peptic ulcer disease. ED plan will start on Carafate 3 times daily and have patient follow-up with her primary care this week. Abeba findings with patient, discussed starting on Carafate, patient gave verbal understanding of home medication strict follow-up care with primary physician, return to ER precautions and concerns, patient discharged home without incident. Charly Disclaimer: Charly Disclaimer: This electronic medical record was generated, in whole or in part, using a voice recognition dictation system. Departure Departure Impression: Primary Impression: Epigastric pain Disposition: 01 DC HOME SELF CARE/HOMELESS Condition: IMPROVED Referrals: PRAFUL DA SILVA MD (PCP) Additional Instructions: Please take Carafate medication as prescribed 3 times a day, do not take your other medications 2 hours before and after taking the Carafate medications, however it is fine to eat when taking this medication. Please follow-up with your doctor this week to let him know you are on Carafate as he may change this medication. Return to the emergency department for worsening symptoms or other concerns. Scripts Sucralfate (CARAFATE) 1 Gm Tablet 1 TAB PO TID for STOMACH PAINS for 30 Days, #90 TAB 0 Refills Prov: PRAFUL PAULINO APRN 03/13/20 PRAFUL PAULINO APRN Mar 13, 2020 22:59
[2020-03-13 23:01] VITALS: BP 133/61
[2020-03-13] MEDS ORDERED: SUCR1TAB35 PO (23:08)
[2020-03-13] MEDS ORDERED: fentaNYL PF VIAL 100 MCG/2 ML VIAL IVP ONE (23:30)
== END 2020-03-13 23:25 | disposition home or self-care (01) ==
LOC: ER 21:17
DX: R10.13 Epigastric pain (principal); R11.0 Nausea; J45.909 Unspecified asthma, uncomplicated; D64.9 Anemia, unspecified; G89.29 Other chronic pain; Z98.51 Tubal ligation status; Z98.890 Other specified postprocedural states; Z88.8 Allergy status to other drugs, medicaments and biological substances
CPT/HCPCS: 36415; 80053; 81025; 83690; 84484; 85025; 96361; 96374; 99283; J2405; J7030; 99284

== ENCOUNTER 2020-03-25 16:13 | Emergency (ER) | payer SELFPAY ==
[~2020-03-25] VITALS: Ht 175.3 cm; Wt 122.4 kg
[~2020-03-25 16:13] MED LIST changes: +SUCR1TAB35 PO
--- NOTE | 2020-03-25 17:30 | ED.ADGEN ---
Past Medical History Past Medical History: Anemia, Asthma Additional Past Medical Histor: Chronic low back pain Past Surgical History: Tubal ligation, Other Additional Past Surgical Histo: D&C, wisdom teeth Smoking Status: Never Smoker Alcohol Use: None Drug Use: None General Adult EDM: Chief Complaint: HAND PROBLEM HPI: HPI: Patient is a 44 year old AA female, accompanied by her significant other, who presents to the emergency department with complaints of blue discoloration to her right hand that started today. Patient denies any injury, trauma, or cold exposure. She denies any decreased sensation or movement of the affected hand. She denies any pain. Patient is noted to be wearing dark blue-colored ashley jeans during HPI. Pt reports that the jeans are newer and have not been washed much. Review of Systems: Review of Systems: Complete ROS is negative unless otherwise noted in HPI. Allergies: Allergies: Allergies Coded Allergies Type Severity Reaction Last Updated Verified loratadine Allergy Intermediate swelling 07/31/15 Yes Physical Exam: PE: See Above Constitutional: Well developed, well nourished, no acute distress, non-toxic appearance, obese. [] HENT: Normocephalic, atraumatic, bilateral external ears normal, nose normal. [] Eyes: PERRLA, EOMI, conjunctiva normal, no discharge. [] Neck: Normal range of motion, no stridor. [] Cardiovascular:Heart rate regular rhythm Lungs & Thorax: Respirations even and unlabored, no retractions, no respiratory distress Skin: Warm, dry, no erythema, no rash; bluish discoloration noted right hand patient, right hand is warm, cap refill less than 2 seconds, 2+ radial pulse. [] Extremities: Right hand: No tenderness to palpation, ROM intact, no edema. [] Neurologic: Alert and oriented X 3, no focal deficits noted. [] Psychologic: Affect normal, judgement normal, mood normal. [] Current Patient Data: Vital Signs: Vital Signs Date Time Temp Pulse Resp B/P (MAP) Pulse Ox O2 Delivery O2 Flow Rate FiO2 03/25/20 16:55 98.4 62 14 156/87 (110) 100 Room Air 98.4 EKG: EKG: [] Heart Score: Risk Factors: Risk Factors: DM, Current or recent (<one month) smoker, HTN, HLP, family history of CAD, obesity. Risk Scores: Score 0 - 3: 2.5% MACE over next 6 weeks - Discharge Home Score 4 - 6: 20.3% MACE over next 6 weeks - Admit for Clinical Observation Score 7 - 10: 72.7% MACE over next 6 weeks - Early Invasive Strategies Radiology/Procedures: Radiology/Procedures: The patient's hands were washed with soap and water, the amount of blue discoloration had decreased, I then used an alcohol prep pad and wiped it across the right hand surface, there blue dye present on the alcohol pads. I advised the patient that the blue discoloration on her hand is from the dye in the jeans that she is wearing. Course & Med Decision Making: Course & Med Decision Making Pertinent Labs and Imaging studies reviewed. (See chart for details) I encouraged the patient to thoroughly wash the jeans is currently wearing before she wears them again, as this will happen until the excess dye has come out of the fabric. [] [] Dragon Disclaimer: Dragon Disclaimer: This electronic medical record was generated, in whole or in part, using a voice recognition dictation system. Departure Departure Impression: Primary Impression: Person with feared complaint in whom no diagnosis is made Disposition: 01 DC HOME SELF CARE/HOMELESS Condition: STABLE Referrals: PRAFUL DA SILVA MD (PCP) Patient Instructions: Medical Screening Exam Additional Instructions: Follow up with your primary care doctor as needed. Return to the ER if your symptoms worsen. MICHELLE PEDRO APRN Mar 25, 2020 17:30
[2020-03-25 17:32] VITALS: BP 142/92
== END 2020-03-25 17:32 | disposition home or self-care (01) ==
LOC: ER 16:13
DX: Z71.1 Person with feared health complaint in whom no diagnosis is made (principal); J45.909 Unspecified asthma, uncomplicated; G89.29 Other chronic pain; Z88.8 Allergy status to other drugs, medicaments and biological substances
CPT/HCPCS: 99281

== ENCOUNTER 2020-04-04 08:55 | Emergency (ER) | payer OTHER ==
[~2020-04-04] VITALS: Ht 175.3 cm; Wt 105.0 kg
[2020-04-04] MEDS ORDERED: KETOROLAC 60 MG/2 ML VIAL. IM ONE (10:15)
[2020-04-04] MEDS ORDERED: ACETAMINOPHEN 500 MG TABLET PO ONE (10:15)
[2020-04-04] MEDS ORDERED: CYCLOBENZAPRINE 10 MG TABLET. PO ONE (10:15)
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
[2020-04-04 11:18] LABS: BILIRUBIN,URINE NEGATIVE (NEG); CLARITY,URINE CLEAR; COLOR,URINE YELLOW; NITRITE,URINE NEGATIVE (NEG); PROTEIN,URINE NEGATIVE (NEG-TRACE); UROBILINOGEN,URINE 0.2 mg/dL (0.2 mg/dL)
[2020-04-04 11:32] LABS: BACTERIA,URINE FEW /HPF (0-FEW); RBC,URINE OCC /HPF (0-2)
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
[2020-04-04 11:57] VITALS: BP 136/93
== END 2020-04-04 11:58 | disposition home or self-care (01) ==
LOC: ER 08:55
DX: G89.11 Acute pain due to trauma (principal); R07.89 Other chest pain; M25.561 Pain in right knee; M25.562 Pain in left knee; J45.909 Unspecified asthma, uncomplicated; D64.9 Anemia, unspecified; Z98.51 Tubal ligation status; Z98.890 Other specified postprocedural states; Z88.8 Allergy status to other drugs, medicaments and biological substances; V98.8XXA Other specified transport accidents, initial encounter; Y93.89 Activity, other specified; Y92.89 Other specified places as the place of occurrence of the external cause; Y99.8 Other external cause status
CPT/HCPCS: 71045; 73562; 81001; 81025; 96372; 99284; J1885

== ENCOUNTER 2020-06-04 21:53 | Emergency (ER) | payer OTHER | END 2020-06-04 23:20 | disposition left against medical advice (07) | LOC: ER 21:53 | DX: M25.569 Pain in unspecified knee (principal); Z53.21 Procedure and treatment not carried out due to patient leaving prior to being seen by health care provider ==

== ENCOUNTER 2020-08-17 23:57 | Emergency (ER) | payer OTHER ==
[~2020-08-17] VITALS: Ht 175.3 cm; Wt 125.0 kg
--- NOTE | 2020-08-18 00:44 | ED.ADGEN ---
Past Medical History Past Medical History: Anemia, Asthma Additional Past Medical Histor: Chronic low back pain Past Surgical History: Tubal ligation, Other Additional Past Surgical Histo: D&C, wisdom teeth Smoking Status: Never Smoker Alcohol Use: None Drug Use: None General Adult EDM: Chief Complaint: BACK PAIN - NO INJURY HPI: HPI: Patient is a 45 year old female coming in for central low back pain that started 5 days ago when she woke up in the morning. Patient is a pain is gradually getting worse and is unable to tolerate. Denies any recent falls, trauma, heavy lifting, or repetitive tasks. Patient states she has had back pain in the past but it was not this bad. Has not seen her primary care physician for it. Denies any fevers, chills, night sweats, and intentional weight loss, urinary symptoms, personal or family history of cancer. Review of Systems: Review of Systems: All other systems within normal limits except for as noted in the HPI Current Medications: Current Medications Medications (Trade) Dose Ordered Sig/Isa Start Time Stop Time Status Last Admin Dose Admin Hydromorphone HCl (Dilaudid) 2 mg 1X ONCE 08/18/20 00:45 08/18/20 00:46 DC 08/18/20 01:04 2 MG Ketorolac Tromethamine (Toradol Im) 60 mg 1X ONCE 08/18/20 00:45 08/18/20 00:46 DC 08/18/20 01:04 60 MG Allergies: Allergies: Allergies Coded Allergies Type Severity Reaction Last Updated Verified loratadine Allergy Intermediate swelling 07/31/15 Yes Physical Exam: PE: Constitutional: Well developed, well nourished, no acute distress, non-toxic appearance. [] HENT: Normocephalic, atraumatic, bilateral external ears normal, nose normal. [] Eyes: PERRLA, conjunctiva normal, no discharge. [] Neck: No rigidity, supple, no stridor. [] Cardiovascular: Regular rate and rhythm, brisk cap refill [] Lungs & Thorax: Non labored symmetric respirations, no tachypnea or respiratory distress [] Abdomen: Soft, nondistended. Skin: Warm, dry, no erythema, no rash. [] Back: Unremarkable, no step-off or deformity, point tenderness over L4-L5 Extremities: No deformities, range of motion grossly intact, no lower extremity edema [] Neurologic: Alert and oriented X 3, no focal deficits noted. [] Psychologic: Affect normal, judgement normal, mood normal. [] Current Patient Data: Vital Signs: Vital Signs Date Time Temp Pulse Resp B/P (MAP) Pulse Ox O2 Delivery O2 Flow Rate FiO2 08/18/20 01:04 18 100 Room Air 08/18/20 00:10 97.6 67 140/100 (107) 97.6 EKG: EKG: [] Heart Score: C/O Chest Pain: No Risk Factors: Risk Factors: DM, Current or recent (<one month) smoker, HTN, HLP, family history of CAD, obesity. Risk Scores: Score 0 - 3: 2.5% MACE over next 6 weeks - Discharge Home Score 4 - 6: 20.3% MACE over next 6 weeks - Admit for Clinical Observation Score 7 - 10: 72.7% MACE over next 6 weeks - Early Invasive Strategies Radiology/Procedures: Radiology/Procedures: [facility] [address] [place] [address] IMAGING REPORT Signed PATIENT: BABATUNDE STEVENS ACCOUNT: [id number] : 1975 LOCATION: ER AGE: 45 SEX: F EXAM STATUS: REG ER ORD. PHYSICIAN: CARMELINA CROW MD REASON: low back pain PROCEDURE: CT LUMBAR SPINE WO CONTRAST Examination: CT lumbar spine without contrast History: Low back pain Technique: Axial helical images of the lumbar spine were obtained without contrast. Coronal and sagittal reconstruction was performed. Exposure: One or more of the following individualized dose reduction techniques were utilized for this examination: 1. Automated exposure control 2. Adjustment of the mA and/or kV according to patient size 3. Use of iterative reconstruction technique. Findings: The vertebral bodies are aligned. There is no loss of vertebral body stature. Mild disc bulges identified at L3-L4, L4-L5, L5-S1 vertebral levels. There is mild spinal canal stenosis identified at L4-5, L5-S1 vertebral level causing bilateral neural foraminal narrowing most on the left at L4-L5 vertebral level. Impression: Mild disc bulges identified at L3-L4, L4-L5, L5-S1 vertebral levels. There is mild spinal canal stenosis identified at L4-5, L5-S1 vertebral level causing bilateral neural foraminal narrowing most on the left at L4-L5 vertebral level. Electronically signed by: Demetrius Westfall MD (08/18/2020 1:16 AM) [id number] DICTATED and SIGNED BY: DEMETRIUS WESTFALL MD DATE: 08/18/20 [id number] [] Course & Med Decision Making: Course & Med Decision Making Pertinent Labs and Imaging studies reviewed. (See chart for details) [] Dragon Disclaimer: Dragon Disclaimer: This electronic medical record was generated, in whole or in part, using a voice recognition dictation system. Departure Departure Impression: Primary Impression: Low back pain Disposition: HOME / SELF CARE / HOMELESS Condition: STABLE Referrals: PRAFUL DA SILVA MD (PCP) Patient Instructions: Back Pain, Adult Scripts Hydrocodone/Acetaminophen (Hydrocodone-Acetamin 7.5-325) 1 Each Tablet 1 EACH PO PRN Q6-8HRS PRN for PAIN for 3 Days, #10 TAB Prov: CARMELINA CROW MD 08/18/20 Ibuprofen (IBUPROFEN) 800 Mg Tablet 800 MG PO PRN Q8HRS PRN for PAIN for 10 Days, #30 TAB Prov: CARMELINA CROW MD 08/18/20 CARMELINA CROW MD Aug 18, 2020 00:44
[2020-08-18] MEDS ORDERED: KETOROLAC 60 MG/2 ML VIAL. IM ONE (00:45)
[2020-08-18] MEDS ORDERED: HYDROmorphone 2 MG/ML INJ. IM ONE (00:45)
--- NOTE | 2020-08-18 01:19 | RAD ---
Examination: CT lumbar spine without contrast History: Low back pain Technique: Axial helical images of the lumbar spine were obtained without contrast. Coronal and sagit chloe reconstruction was performed. Exposure: One or more of the following individualized dose reduction techniques were utilized for thi s examination: 1. Automated exposure control 2. Adjustment of the mA and/or kV according to patient size 3. Use of iterative reconstruction technique. Findings: The vertebral bodies are aligned. There is no loss of vertebral body stature. Mild disc bulges identi fied at L3-L4, L4-L5, L5-S1 vertebral levels. There is mild spinal canal stenosis identified at L4-5, L5-S1 vertebral level causing bilateral neural foraminal narrowing most on the left at L4-L5 vertebr al level. Impression: Mild disc bulges identified at L3-L4, L4-L5, L5-S1 vertebral levels. There is mild spinal canal steno sis identified at L4-5, L5-S1 vertebral level causing bilateral neural foraminal narrowing most on th e left at L4-L5 vertebral level. Electronically signed by: Demetrius Westfall MD (08/18/2020 1:16 AM) [id number]
[2020-08-18 01:32] VITALS: BP 137/78
[2020-08-18] MEDS ORDERED: HYDR-2763 PO (01:37)
[2020-08-18] MEDS ORDERED: IBUP-1060 PO (01:37)
[2020-08-23] MEDS ORDERED: MORPHINE SULFATE 4 MG/ML INJ. IM ONE (06:45)
[2020-08-23] MEDS ORDERED: KETOROLAC 60 MG/2 ML VIAL. IM ONE (06:45)
[2020-08-23] MEDS ORDERED: methylPREDNISolone SOD SUCC PF 125 MG/2 ML VIAL. IM ONE (06:45)
[2020-08-23] MEDS ORDERED: ORPHENADRINE CITRATE 60 MG/2 ML VIAL. IM ONE (06:45)
[2020-08-23] MEDS ORDERED: CYCL10TA19 PO (07:49)
== END 2020-08-18 02:10 | disposition home or self-care (01) ==
LOC: ER 23:57
DX: M54.5 Low back pain (principal); G89.29 Other chronic pain; J45.909 Unspecified asthma, uncomplicated; Z98.51 Tubal ligation status; Z88.8 Allergy status to other drugs, medicaments and biological substances
CPT/HCPCS: 72131; 96372; 99284; J1170; J1885

== ENCOUNTER 2020-08-23 05:24 | Emergency (ER) | payer OTHER ==
[~2020-08-23] VITALS: Ht 175.3 cm; Wt 125.9 kg
[~2020-08-23 05:24] MED LIST changes: +HYDR-2763 PO; +IBUP-1060 PO
[2020-08-23] MEDS: methylPREDNISolone SOD SUCC PF 125 MG/2 ML VIAL. IM ONE (07:09)
[2020-08-23] MEDS: ORPHENADRINE CITRATE 60 MG/2 ML VIAL. IM ONE (07:09)
[2020-08-23] MEDS: KETOROLAC 60 MG/2 ML VIAL. IM ONE (07:10)
[2020-08-23] MEDS: MORPHINE SULFATE 4 MG/ML INJ. IM ONE (07:10)
[2020-08-23] MEDS ORDERED: NAPR-682 PO (07:49)
[2020-08-23] MEDS ORDERED: TRAM50TA PO (07:49)
[2020-08-23] MEDS ORDERED: CYCL10TA2 PO (07:49)
[2020-08-23] MEDS ORDERED: PRED20TA PO (07:49)
--- NOTE | 2020-08-23 07:51 | PHYS DOC ---
Past Medical History Past Medical History: Anemia, Asthma Additional Past Medical Histor: Chronic low back pain Past Surgical History: Tubal ligation, Other Additional Past Surgical Histo: D&C, wisdom teeth Smoking Status: Unknown if ever smoked Alcohol Use: None Drug Use: None General Adult EDM: Chief Complaint: BACK PAIN - NO INJURY HPI: HPI: Patient is a 45 year old female who present to ER for evaluation of low back pain. Patient has history of low back problems, she was here last week for the same problem. Patient said the pain radiates to her left buttock area. She denies any bowel or bladder incontinence. Denies any numbness or weakness in her lower extremity. Patient denies any abdominal pain. Patient denies any recent injury. Review of Systems: Review of Systems: Constitutional: Denies fever or chills. [] Eyes: Denies change in visual acuity. [] HENT: Denies nasal congestion or sore throat. [] Respiratory: Denies cough or shortness of breath. [] Cardiovascular: Denies chest pain or edema. [] GI: Denies abdominal pain, nausea, vomiting, bloody stools or diarrhea. [] : Denies dysuria. [] Musculoskeletal: LOWER BACK PAIN. Integument: Denies rash. [] Neurologic: Denies headache, focal weakness or sensory changes. [] Endocrine: Denies polyuria or polydipsia. [] Lymphatic: Denies swollen glands. [] Psychiatric: Denies depression or anxiety. [] Heart Score: C/O Chest Pain: N/A Risk Factors: Risk Factors: DM, Current or recent (<one month) smoker, HTN, HLP, family history of CAD, obesity. Risk Scores: Score 0 - 3: 2.5% MACE over next 6 weeks - Discharge Home Score 4 - 6: 20.3% MACE over next 6 weeks - Admit for Clinical Observation Score 7 - 10: 72.7% MACE over next 6 weeks - Early Invasive Strategies Current Medications: Current Medications Medications (Trade) Dose Ordered Sig/Isa Start Time Stop Time Status Last Admin Dose Admin Ketorolac Tromethamine (Toradol Im) 60 mg 1X ONCE 08/23/20 06:45 08/23/20 06:46 DC 08/23/20 07:10 60 MG Methylprednisolone Sodium Succinate (SOLU-Medrol 125MG VIAL) 125 mg 1X ONCE 08/23/20 06:45 08/23/20 06:46 DC 08/23/20 07:09 125 MG Morphine Sulfate (Morphine Sulfate) 4 mg 1X ONCE 08/23/20 06:45 08/23/20 06:46 DC 08/23/20 07:10 4 MG Orphenadrine Citrate (Norflex) 60 mg 1X ONCE 08/23/20 06:45 08/23/20 06:46 DC 08/23/20 07:09 60 MG Allergies: Allergies: Allergies Coded Allergies Type Severity Reaction Last Updated Verified loratadine Allergy Intermediate swelling 07/31/15 Yes Physical Exam: PE: Constitutional: Well developed, well nourished, no acute distress, non-toxic appearance. [] HENT: Normocephalic, atraumatic, bilateral external ears normal,, nose normal. [] Eyes: PERRLA, EOMI, conjunctiva normal, no discharge. [] Neck: Normal range of motion, no tenderness, supple, no stridor. [] Cardiovascular:Heart rate regular rhythm, no murmur [] Lungs & Thorax: Bilateral breath sounds clear to auscultation [] Abdomen: Bowel sounds normal, soft, no tenderness, no masses, no pulsatile chio s. [] Skin: Warm, dry, no erythema, no rash. [] Back: There is tenderness to palpation in lower lumbar spine area, no CVA tenderness. [] Extremities: No tenderness, no cyanosis, no clubbing, ROM intact, no edema. [] Neurologic: Alert and oriented X 3, normal motor function, normal sensory functi on, no focal deficits noted. NO SADDLE ANESTHESIA. Psychologic: Affect normal, judgement normal, mood normal. [] Current Patient Data: Vital Signs: Vital Signs Date Time Temp Pulse Resp B/P (MAP) Pulse Ox O2 Delivery O2 Flow Rate FiO2 08/23/20 07:10 19 100 Room Air 08/23/20 05:25 98.1 69 128/60 (97) 98.1 EKG: EKG: [] Radiology/Procedures: Radiology/Procedures: [] Course & Med Decision Making: Course & Med Decision Making Pertinent Labs and Imaging studies reviewed. (See chart for details) Patient is a 45-year-old female who presented to ER due to low back pain. Patient had chronic lower back problems, patient was seen here a week ago for the same problem, CT scan of the lumbar spine associated this problem in her lumbar spine area. Patient had no bowel or bladder incontinence today, no saddle anesthesia, patient will need to follow-up with her family physician for outpatient evaluation with lumbar spine MRI. Depending on how the lumbar spine look on MRI patient might need to have referral to pain management for further evaluation and treatment. Patient was discharged home with medication to take for her pain. Patient was amenable to plan of care for Charly Disclaimer: Dragmahendra Disclaimer: This electronic medical record was generated, in whole or in part, using a voice recognition dictation system. Departure Departure Impression: Primary Impression: Sciatica of left side Additional Impression: Low back pain radiating to left lower extremity Disposition: HOME / SELF CARE / HOMELESS Condition: IMPROVED Referrals: PRAFUL DA SILVA MD (PCP) Please follow up with your family physician this week for further evaluation with MRI of your lumbar spine. Patient Instructions: Sciatica with [facility] Additional Instructions: Thank you for visiting our Emergency Department. We appreciate you trusting us with your care. If any additional problems come up don't hesitate to return to visit us. Please follow up with your primary care provider so they can plan additional care if needed and know about the problem that you had. If symptoms worsen come back to the Emergency Department. Any concerning symptoms that start such as chest pain, shortness of air, weakness or numbness on one side of the body, running high fevers or any other concerning symptoms return to the ER. Scripts Cyclobenzaprine Hcl (CYCLOBENZAPRINE HCL) 10 Mg Tablet 1 TAB PO TID PRN for MUSCLE SPASMS, #20 TAB Prov: SHYANN PAVON DO 08/23/20 Tramadol Hcl (TRAMADOL HCL) 50 Mg Tablet 50 MG PO Q6HRS PRN for PAIN, #20 TAB Prov: SHYANN PAVON DO 08/23/20 Prednisone (PREDNISONE) 20 Mg Tablet 1 TAB PO DAILY for 7 Days, #7 TAB Prov: SHYANN PAVON DO 08/23/20 Naproxen Sodium (ANAPROX DS) 550 Mg Tablet 1 TAB PO BID for 15 Days, #30 TAB 0 Refills Prov: SHYANN PAVON DO 08/23/20 SHYANN PAVON DO Aug 23, 2020 07:51
[2020-08-23 08:00] VITALS: BP 161/86
== END 2020-08-23 08:28 | disposition home or self-care (01) ==
LOC: ER 05:24
DX: M54.42 Lumbago with sciatica, left side (principal); G89.29 Other chronic pain; J45.909 Unspecified asthma, uncomplicated; Z98.51 Tubal ligation status
CPT/HCPCS: 96372; 99285; J1885; J2270; J2360; J2930

== ENCOUNTER 2020-09-20 18:51 | Emergency (ER) | payer OTHER ==
[~2020-09-20] VITALS: Ht 175.3 cm; Wt 125.0 kg
[~2020-09-20 18:51] MED LIST changes: +CYCL10TA2 PO; +NAPR-682 PO; +PRED20TA PO
[2020-09-20 19:44] VITALS: BP 128/73
[2020-09-21] MEDS ORDERED: ORPH100T PO (15:41)
[2020-09-21] MEDS ORDERED: HYDR-2761 PO (15:41)
[2020-09-21] MEDS ORDERED: LIDO700A21 TP (15:41)
[2020-09-21] MEDS ORDERED: PRED20TA PO (15:41)
== END 2020-09-21 01:50 | disposition left against medical advice (07) ==
LOC: ER 18:51
DX: M48.061 Spinal stenosis, lumbar region without neurogenic claudication (principal); G89.29 Other chronic pain; Z53.21 Procedure and treatment not carried out due to patient leaving prior to being seen by health care provider

== ENCOUNTER 2020-09-21 11:23 | Emergency (ER) | payer OTHER ==
[~2020-09-21] VITALS: Ht 175.3 cm; Wt 125.0 kg
[~2020-09-21 11:23] MED LIST changes: +LIDOCAINE (700MG/PATCH) PATCH. TD ONE
[2020-09-21 15:12] VITALS: BP 141/74
[2020-09-21] MEDS ORDERED: KETOROLAC 30 MG/ML VIAL. IM ONE (15:30)
[2020-09-21] MEDS ORDERED: DEXAMETHASONE 4 MG TABLET PO ONE (15:30)
[2020-09-21] MEDS ORDERED: ORPHENADRINE CITRATE 60 MG/2 ML VIAL. IM ONE (15:30)
[2020-09-21] MEDS ORDERED: HYDROcodone/APAP 5/325MG 1 TAB TABLET PO ONE (15:30)
--- NOTE | 2020-09-21 15:35 | PHYS DOC ---
Past Medical History Past Medical History: Anemia, Asthma Additional Past Medical Histor: Chronic low back pain Past Surgical History: Tubal ligation, Other Additional Past Surgical Histo: D&C, wisdom teeth Smoking Status: Unknown if ever smoked Alcohol Use: None Drug Use: None General Adult EDM: Chief Complaint: BACK PAIN - NO INJURY HPI: HPI: Patient is a 45 year old [f__sex] who presents with [] Review of Systems: Review of Systems: Constitutional: Denies fever or chills. [] Eyes: Denies change in visual acuity. [] HENT: Denies nasal congestion or sore throat. [] Respiratory: Denies cough or shortness of breath. [] Cardiovascular: Denies chest pain or edema. [] GI: Denies abdominal pain, nausea, vomiting, bloody stools or diarrhea. [] : Denies dysuria. [] Musculoskeletal: Denies back pain or joint pain. [] Integument: Denies rash. [] Neurologic: Denies headache, focal weakness or sensory changes. [] Endocrine: Denies polyuria or polydipsia. [] Lymphatic: Denies swollen glands. [] Psychiatric: Denies depression or anxiety. [] Heart Score: Risk Factors: Risk Factors: DM, Current or recent (<one month) smoker, HTN, HLP, family history of CAD, obesity. Risk Scores: Score 0 - 3: 2.5% MACE over next 6 weeks - Discharge Home Score 4 - 6: 20.3% MACE over next 6 weeks - Admit for Clinical Observation Score 7 - 10: 72.7% MACE over next 6 weeks - Early Invasive Strategies Current Medications: Current Medications Medications (Trade) Dose Ordered Sig/Isa Start Time Stop Time Status Last Admin Dose Admin Acetaminophen/ Hydrocodone Bitart (Lortab 5/325) 1 tab 1X ONCE 09/21/20 15:30 09/21/20 15:31 DC Dexamethasone (Decadron) 10 mg 1X ONCE 09/21/20 15:30 09/21/20 15:31 DC Ketorolac Tromethamine (Toradol 30mg Vial) 30 mg 1X ONCE 09/21/20 15:30 09/21/20 15:31 DC Lidocaine (Lidoderm) 1 patch 1X ONCE 09/21/20 09:00 09/21/20 15:29 DC Orphenadrine Citrate (Norflex) 60 mg 1X ONCE 09/21/20 15:30 09/21/20 15:31 DC Allergies: Allergies: Allergies Coded Allergies Type Severity Reaction Last Updated Verified loratadine Allergy Intermediate swelling 07/31/15 Yes Physical Exam: PE: Constitutional: Well developed, well nourished, no acute distress, non-toxic appearance. [] HENT: Normocephalic, atraumatic, bilateral external ears normal, oropharynx moist, no oral exudates, nose normal. [] Eyes: PERRLA, EOMI, conjunctiva normal, no discharge. [] Neck: Normal range of motion, no tenderness, supple, no stridor. [] Cardiovascular:Heart rate regular rhythm, no murmur [] Lungs & Thorax: Bilateral breath sounds clear to auscultation [] Abdomen: Bowel sounds normal, soft, no tenderness, no masses, no pulsatile masses. [] Skin: Warm, dry, no erythema, no rash. [] Back: No tenderness, no CVA tenderness. [] Extremities: No tenderness, no cyanosis, no clubbing, ROM intact, no edema. [] Neurologic: Alert and oriented X 3, normal motor function, normal sensory function, no focal deficits noted. [] Psychologic: Affect normal, judgement normal, mood normal. [] Current Patient Data: Vital Signs: Vital Signs Date Time Temp Pulse Resp B/P (MAP) Pulse Ox O2 Delivery O2 Flow Rate FiO2 09/21/20 15:12 98.2 74 20 141/74 (111) 98 Room Air 98.2 EKG: EKG: [] Radiology/Procedures: Radiology/Procedures: [] Course & Med Decision Making: Course & Med Decision Making Pertinent Labs and Imaging studies reviewed. (See chart for details) [] Dragon Disclaimer: eHarmony Disclaimer: This electronic medical record was generated, in whole or in part, using a voice recognition dictation system. Departure Departure Impression: Primary Impression: Back pain Qualified Codes: M54.41 - Lumbago with sciatica, right side Disposition: 01 HOME / SELF CARE / HOMELESS Condition: STABLE Referrals: PRAFUL DA SILVA MD (PCP) ELKE UP MD Patient Instructions: Back Pain, Adult, [id number], Sciatica, [id number] Scripts Lidocaine (Lidocaine PATCH ) 1 Each Adh..patch 1 EACH TP DAILY for FOR LOCAL PAIN, #30 PATCH REMOVE AFTER 12 HOURS Prov: PRAFUL MARQUEZ DO 09/21/20 Prednisone (PREDNISONE) 20 Mg Tablet 2 TAB PO DAILY, #8 TAB Start this prescription tomorrow, Friday09/22/20 Prov: PRAFUL MARQUEZ DO 09/21/20 Hydrocodone Bit/Acetaminophen (HYDROCODONE-APAP 5-325 ) 1 Tab Tablet 0.5-1 TAB PO PRN Q6HRS PRN for PAIN, #14 TAB 0 Refills Prov: PRAFUL MARQUEZ DO 09/21/20 Orphenadrine Citrate (ORPHENADRINE CITRATE) 100 Mg Tablet.er 1 TAB PO BID PRN for MUSCLE PAIN, #30 TAB Prov: PRAFUL MARQUEZ DO 09/21/20 PRAFUL MARQUEZ DO Sep 21, 2020 15:35
[2020-09-21] MEDS ORDERED: ORPH100T PO (15:41)
[2020-09-21] MEDS ORDERED: PRED20TA PO (15:41)
[2020-09-21] MEDS ORDERED: HYDR-2761 PO (15:41)
[2020-09-21] MEDS ORDERED: LIDO700A21 TP (15:41)
== END 2020-09-21 16:06 | disposition home or self-care (01) ==
LOC: ER 11:23
DX: M54.41 Lumbago with sciatica, right side (principal); J45.909 Unspecified asthma, uncomplicated; G89.29 Other chronic pain; Z86.2 Personal history of diseases of the blood and blood-forming organs and certain disorders involving the immune mechanism; Z88.8 Allergy status to other drugs, medicaments and biological substances
CPT/HCPCS: 96372; 99284; J1885; J2360

== ENCOUNTER 2021-05-04 15:12 | Emergency (ER) | payer SELFPAY ==
[~2021-05-04] VITALS: Ht 175.3 cm; Wt 122.7 kg
[~2021-05-04 15:12] MED LIST changes: +CYCL10TA19 PO; -CYCL10TA2 PO; +LIDO700A21 TP; -LIDOCAINE (700MG/PATCH) PATCH. TD ONE; +ORPH100T PO
[2021-05-04 15:48] VITALS: BP 143/87
[2021-05-04] MEDS ORDERED: HYDROcodone/APAP 5/325MG 1 TAB TABLET PO ONE (16:00)
--- NOTE | 2021-05-04 17:04 | RAD ---
Exam Date: 05/04/2021 4:[address] HEAD AND C-SPINE WO Indication: Reason: tv fell on head / Spl. Instructions: / History: . One or more of the following dose reduction techniques were utilized: *Automated exposure control (AEC) *Adjustment of mA and/or kV according to patient size *Use of iterative reconstruction technique *CT scan done according to ALARA, or ALARA/IMAGE GENTLY EXAMINATION: CT OF THE HEAD WITHOUT CONTRAST INDICATION: Trauma, head injury, headache; TECHNIQUE: Noncontrast helical axial CT images of the head were obtained. FINDINGS: The ventricles and sulci are normal for the patient's stated age. There is no evidence of acute int racranial hemorrhage, extra-axial collection, mass effect, midline shift, or acute territorial infarc t. No lesion of the skull base or the calvarium is seen. The visualized paranasal sinuses, mastoid ai r cells, and orbits are normal in appearance. IMPRESSION: No evidence for acute intracranial abnormality. EXAMINATION: CT OF THE CERVICAL SPINE WITHOUT CONTRAST Clinical Indication: Cervical spine pain after trauma Technique: Thin cut helical axial CT images through the cervical spine were obtained without contrast on a multi-detector CT scanner. Source data was then reconstructed into sagittal and coronal planes. Findings: Alignment is maintained without spondylolisthesis. Vertebral body heights are maintained without acute fracture. Mild multilevel degenerative changes ar e noted. No significant prevertebral soft tissue swelling is demonstrated. No severe osseous central canal stenosis is seen. Impression: No evidence of acute cervical spine fracture or subluxation. Electronically signed by: Juan Lloyd MD (05/04/2021 5:01 PM) [facility]
--- NOTE | 2021-05-04 17:13 | PHYS DOC ---
Past Medical History Past Medical History: Anemia, Asthma, Sciatica Additional Past Medical Histor: Chronic low back pain Past Surgical History: Tubal ligation, Other Additional Past Surgical Histo: D&C, wisdom teeth Smoking Status: Never Smoker Alcohol Use: None Drug Use: None General Adult EDM: Chief Complaint: HEAD INJURY/TRAUMA HPI: HPI: Is a 45-year-old female who presents to the emergency department for head injury after a flatscreen TV fell off a shelf and hit the top of her head 1 hour prior to arrival. Patient is reporting pain to the top of her head reports that it radiates down the right side of her neck. She denies any loss of consciousness, nausea, vomiting. She rates her pain 10 out of 10. No treatment prior to arrival. Review of Systems: Review of Systems: HENT: See HPI GI: See HPI Musculoskeletal: See HPI Neurologic: See HPI Heart Score: C/O Chest Pain: N/A Risk Factors: Risk Factors: DM, Current or recent (<one month) smoker, HTN, HLP, family h istory of CAD, obesity. Risk Scores: Score 0 - 3: 2.5% MACE over next 6 weeks - Discharge Home Score 4 - 6: 20.3% MACE over next 6 weeks - Admit for Clinical Observation Score 7 - 10: 72.7% MACE over next 6 weeks - Early Invasive Strategies Current Medications: Current Medications Medications (Trade) Dose Ordered Sig/Isa Start Time Stop Time Status Last Admin Dose Admin Acetaminophen/ Hydrocodone Bitart (Lortab 5/325) 1 tab 1X ONCE 05/04/21 16:00 05/04/21 16:01 DC Allergies: Allergies: Allergies Coded Allergies Type Severity Reaction Last Updated Verified loratadine Allergy Intermediate swelling 07/31/15 Yes Physical Exam: PE: Constitutional: Well developed, well nourished, no acute distress, non-toxic appearance. [] HENT: Normocephalic, atraumatic, no hematomas or abrasions noted, no raccoons or sanabria sign, bilateral external ears normal, oropharynx moist, no oral exudates, nose normal. [] Eyes: PERRL, EOMI, conjunctiva normal, no discharge. [] Neck: Normal range of motion, no bony spinal tenderness, no step-offs or deformities supple, no stridor. [] Cardiovascular normal peripheral perfusion Lungs & Thorax: Normal work of breathing, no tachypnea Abdomen: Obese and soft Skin: Warm, dry, no erythema, no rash. [] Back: No tenderness, normal range of motion Extremities: No tenderness, no cyanosis, no clubbing, ROM intact, no edema. [] Neurologic: Alert and oriented X 3, normal motor function, normal sensory function, no focal deficits noted. [] Psychologic: Affect normal, judgement normal, mood normal. [] Current Patient Data: Vital Signs: Vital Signs Date Time Temp Pulse Resp B/P (MAP) Pulse Ox O2 Delivery O2 Flow Rate FiO2 05/04/21 15:48 97.6 95 18 143/87 (105) 98 Room Air 97.6 EKG: EKG: [] Radiology/Procedures: Radiology/Procedures: []PROCEDURE: CT HEAD AND CERVICAL SPINE WO Exam Date: 05/04/2021 4:[address] HEAD AND C-SPINE WO Indication: Reason: tv fell on head / Spl. Instructions: / History: . One or more of the following dose reduction techniques were utilized: *Automated exposure control (AEC) *Adjustment of mA and/or kV according to patient size *Use of iterative reconstruction technique *CT scan done according to ALARA, or ALARA/IMAGE GENTLY EXAMINATION: CT OF THE HEAD WITHOUT CONTRAST INDICATION: Trauma, head injury, headache; TECHNIQUE: Noncontrast helical axial CT images of the head were obtained. FINDINGS: The ventricles and sulci are normal for the patient's stated age. There is no evidence of acute intracranial hemorrhage, extra-axial collection, mass effect, midline shift, or acute territorial infarct. No lesion of the skull base or the calvarium is seen. The visualized paranasal sinuses, mastoid air cells, and orbits are normal in appearance. IMPRESSION: No evidence for acute intracranial abnormality. EXAMINATION: CT OF THE CERVICAL SPINE WITHOUT CONTRAST Clinical Indication: Cervical spine pain after trauma Technique: Thin cut helical axial CT images through the cervical spine were obtained without contrast on a multi-detector CT scanner. Source data was then reconstructed into sagittal and coronal planes. Findings: Alignment is maintained without spondylolisthesis. Vertebral body heights are maintained without acute fracture. Mild multilevel degenerative changes are noted. No significant prevertebral soft tissue swelling is demonstrated. No severe osseous central canal stenosis is seen. Impression: No evidence of acute cervical spine fracture or subluxation. Electronically signed by: Sandra Lloyd MD (05/04/2021 5:01 PM) [facility] DICTATED and SIGNED BY: SANDRA LLOYD MD DATE: 05/04/211653 Course & Med Decision Making: Course & Med Decision Making Pertinent Labs and Imaging studies reviewed. (See chart for details) [] Patient presents to the emergency department for head injury after a flatscreen TV fell onto the top of her head. Imaging was performed of her head and neck which showed no acute findings. Patient's pain was treated in the emergency department. When i returned to patients room she appears to be sitting comfortably in the chair playing a game on her phone. Patient advised to apply ice and take Tylenol and ibuprofen for pain. I discussed with patient all findings and diagnostic testing as well as the need to follow-up with PCP for further evaluation and treatment or return to the ER if any new or worsening symptoms. Strict return precautions were also discussed at length. Patient voiced understanding and agreement with the plan. Patient is hemodynamically stable at the time of disposition. Laineon Disclaimer: Charly Disclaimer: This electronic medical record was generated, in whole or in part, using a voice recognition dictation system. Departure Departure Impression: Primary Impression: Head injury Qualified Codes: S09.90XA - Unspecified injury of head, initial encounter Disposition: HOME / SELF CARE / HOMELESS Condition: GOOD Referrals: PRAFUL DA SILVA MD (PCP) Patient Instructions: Head Injury, Adult Additional Instructions: You were seen in the emergency department for head injury. Imaging was performed of your head and neck which showed no acute findings. Take Tylenol or Profen at home for pain. You can also apply ice. Follow-up with your primary care provider tomorrow regarding your ER visit. Return to the emergency department if you develop worsening of your pain, confusion, intractable nausea or vomiting, vision changes, inability to walk, poor coordination. NEIL BARFIELD APRN May 04, 2021 17:13
== END 2021-05-04 17:24 | disposition home or self-care (01) ==
LOC: ER 15:12
DX: S09.90XA Unspecified injury of head, initial encounter (principal); G89.29 Other chronic pain; J45.909 Unspecified asthma, uncomplicated; Z88.8 Allergy status to other drugs, medicaments and biological substances; W20.8XXA Other cause of strike by thrown, projected or falling object, initial encounter; Y93.89 Activity, other specified; Y92.89 Other specified places as the place of occurrence of the external cause; Y99.8 Other external cause status
CPT/HCPCS: 70450; 72125; 99284-25